=== PATIENT | male | born 1945 | race Caucasian/White ===

== ENCOUNTER → 2016-09-09 | Outpatient (REF) | payer MEDICARE ==
[~2016-09-09] MED LIST: /AMLO25TA PO; /ATOR40TA OR; /MOM400 OR; /PANT40TA PO; /WARF4TA PO; ASCO25TA PO; ASPI81CH PO; BACITAB PO; BACL10TA PO; BISAC5TA PR; COLA100C PO; COLA50CA3 PO; COUM1TAB14 PO; DRIS50002 PO; FLOM5CAP PO; GLUC500T PO; HUMA100I SC; INSULANT SC; INVA1INJ IV; KEPP500T4 PO; LOPR50TA PO; MAG400TA PO; MYCOSTATIN TOP; PRIL40CA PO; PROSCAR PO; PROZ20CA11 PO; SANT250O8 TOP; SENO8.6T9 PO; THERTAB30 PO; TYLE325T5 PO; VITA400T2 PO; VITABCTA PO; ZEST20TA8 PO; ZINC220T PO; ZYVO100T PO
[2016-09-09 15:55] LABS: MEAN CORPUSCULAR HEMOGLOBIN 29.5 pg (27.0-33.0); MEAN CORPUSCULAR HGB CONC 32.3 g/dl (32.0-36.5); MEAN CORPUSCULAR VOLUME 91.1 fl (80.0-96.0); RED CELL DISTRIBUTION WIDTH 14.1 % (11.5-14.5); WHITE BLOOD COUNT 8.2 K/mm3 (4.0-10.0)
[2016-09-09 17:26] LABS: ALBUMIN 3.6 GM/DL (3.2-5.2); ALBUMIN/GLOBULIN RATIO 0.97 (1.00-1.93); ALKALINE PHOSPHATASE 58 U/L (45-117); ALT/SGPT 33 U/L (12-78); ANION GAP 6 MEQ/L (8-16); AST/SGOT 22 U/L (15-37); BILIRUBIN,TOTAL 0.5 MG/DL (0.2-1.0); BLOOD UREA NITROGEN 22 MG/DL (7-18); CALCIUM LEVEL 8.6 MG/DL (8.8-10.2); CARBON DIOXIDE LEVEL 31 MEQ/L (21-32); CHLORIDE LEVEL 103 MEQ/L (98-107); CHOLESTEROL LEVEL 129 MG/DL (<200); CREATININE FOR GFR 1.19 MG/DL (0.70-1.30); GLOMERULAR FILTRATION RATE > 60.0 (>42); GLUCOSE, FASTING 125 MG/DL (83-110); MAGNESIUM LEVEL 1.8 MG/DL (1.8-2.4); SODIUM LEVEL 140 MEQ/L (136-145); TOTAL PROTEIN 7.3 GM/DL (6.4-8.2); TRIGLYCERIDES LEVEL 248 MG/DL (<150)
== END ==
LOC: M SFHCSACK 11:00
PROVIDERS: ATTEND Physician Assistant
DX: D64.9 Anemia, unspecified (principal); I10 Essential (primary) hypertension; E78.5 Hyperlipidemia, unspecified; E11.9 Type 2 diabetes mellitus without complications; E55.9 Vitamin D deficiency, unspecified; R80.9 Proteinuria, unspecified; Z51.81 Encounter for therapeutic drug level monitoring; Z79.891 Long term (current) use of opiate analgesic

== ENCOUNTER → 2017-03-03 | Outpatient (REF) | payer MEDICARE ==
[~2017-03-03] MED LIST changes: -COLA100C PO; +COLA100C5 PO
[2017-03-03 15:43] LABS: ALBUMIN 3.5 GM/DL (3.2-5.2); ALKALINE PHOSPHATASE 61 U/L (45-117); ALT/SGPT 24 U/L (12-78); ANION GAP 9 MEQ/L (8-16); AST/SGOT 20 U/L (15-37); BILIRUBIN,TOTAL 0.3 MG/DL (0.2-1.0); BLOOD UREA NITROGEN 26 MG/DL (7-18); CALCIUM LEVEL 8.8 MG/DL (8.8-10.2); CARBON DIOXIDE LEVEL 26 MEQ/L (21-32); CHLORIDE LEVEL 107 MEQ/L (98-107); CHOLESTEROL LEVEL 117 MG/DL (<200); CREATININE FOR GFR 1.24 MG/DL (0.70-1.30); GLOMERULAR FILTRATION RATE > 60.0 (>42); GLUCOSE, FASTING 98 MG/DL (83-110); POTASSIUM SERUM 4.9 MEQ/L (3.5-5.1); SODIUM LEVEL 142 MEQ/L (136-145); TRIGLYCERIDES LEVEL 205 MG/DL (<150)
[2017-03-03 15:58] LABS: MEAN CORPUSCULAR HEMOGLOBIN 30.4 pg (27.0-33.0); MEAN CORPUSCULAR HGB CONC 32.4 g/dl (32.0-36.5); RED CELL DISTRIBUTION WIDTH 13.4 % (11.5-14.5); WHITE BLOOD COUNT 6.6 K/mm3 (4.0-10.0)
== END ==
LOC: M SFHCSACK 08:51
PROVIDERS: ATTEND Physician Assistant
DX: D64.9 Anemia, unspecified (principal); I10 Essential (primary) hypertension; E78.5 Hyperlipidemia, unspecified; E11.9 Type 2 diabetes mellitus without complications; E55.9 Vitamin D deficiency, unspecified

== ENCOUNTER → 2017-06-04 | Outpatient (REF) | payer MEDICARE ==
[2017-06-04 15:43] LABS: BASO # 0.1 10^3/uL (0.0-0.2); EOS # 0.3 10^3/uL (0.0-0.50); EOS % 3.5 % (0.0-3.0); IMMATURE GRANULOCYTE % 0.5 % (0-0); LYMPH # 2.3 10^3/uL (1.5-4.5); LYMPH % 28.9 % (24.0-44.0); MEAN CORPUSCULAR HEMOGLOBIN 29.4 pg (27.0-33.0); MEAN CORPUSCULAR HGB CONC 31.2 g/dl (32.0-36.5); MEAN CORPUSCULAR VOLUME 94.3 fl (80.0-96.0); MONO # 0.6 10^3/uL (0.0-0.8); MONO % 8.2 % (0.0-5.0); NEUTROPHILS # 4.5 10^3/uL (1.8-7.7); NEUTROPHILS % 57.9 % (36.0-66.0); PLATELET COUNT, AUTOMATED 262 10^3/uL (150-450); RED CELL DISTRIBUTION WIDTH 13.1 % (11.5-14.5); WHITE BLOOD COUNT 7.8 10^3/uL (4.0-10.0)
[2017-06-04 15:50] LABS: ALBUMIN 3.3 GM/DL (3.2-5.2); ALBUMIN/GLOBULIN RATIO 0.92 (1.00-1.93); ALKALINE PHOSPHATASE 51 U/L (45-117); ALT/SGPT 29 U/L (12-78); ANION GAP 7 MEQ/L (8-16); AST/SGOT 17 U/L (15-37); BILIRUBIN,TOTAL 0.3 MG/DL (0.2-1.0); BLOOD UREA NITROGEN 19 MG/DL (7-18); CALCIUM LEVEL 8.7 MG/DL (8.8-10.2); CARBON DIOXIDE LEVEL 30 MEQ/L (21-32); CHLORIDE LEVEL 103 MEQ/L (98-107); CHOLESTEROL LEVEL 99 MG/DL (<200); GLOMERULAR FILTRATION RATE > 60.0 (>42); GLUCOSE, FASTING 111 MG/DL (83-110); POTASSIUM SERUM 4.6 MEQ/L (3.5-5.1); SODIUM LEVEL 140 MEQ/L (136-145); TOTAL PROTEIN 6.9 GM/DL (6.4-8.2); TRIGLYCERIDES LEVEL 185 MG/DL (<150)
== END ==
LOC: M SFHCSACK 08:07
PROVIDERS: ATTEND Physician Assistant
DX: I10 Essential (primary) hypertension (principal); E78.5 Hyperlipidemia, unspecified; E55.9 Vitamin D deficiency, unspecified

== ENCOUNTER → 2017-09-15 | Outpatient (REF) | payer MEDICARE ==
[2017-09-15 16:40] LABS: ALBUMIN 3.5 GM/DL (3.2-5.2); ALBUMIN/GLOBULIN RATIO 0.92 (1.00-1.93); ALKALINE PHOSPHATASE 59 U/L (45-117); ALT/SGPT 21 U/L (12-78); ANION GAP 3 MEQ/L (8-16); AST/SGOT 17 U/L (7-37); BILIRUBIN,TOTAL 0.3 MG/DL (0.2-1.0); BLOOD UREA NITROGEN 38 MG/DL (7-18); CALCIUM LEVEL 8.9 MG/DL (8.8-10.2); CARBON DIOXIDE LEVEL 30 MEQ/L (21-32); CHLORIDE LEVEL 110 MEQ/L (98-107); CREATININE FOR GFR 1.56 MG/DL (0.70-1.30); GLOMERULAR FILTRATION RATE 46.9 (>42); GLUCOSE, FASTING 94 MG/DL (83-110); MAGNESIUM LEVEL 2.5 MG/DL (1.8-2.4); SODIUM LEVEL 143 MEQ/L (136-145); TOTAL PROTEIN 7.3 GM/DL (6.4-8.2)
[2017-09-15 16:43] LABS: POTASSIUM SERUM 5.5 MEQ/L (3.5-5.1)
[2017-09-15 16:46] LABS: TOTAL 25(OH) VITAMIN D 39.4 NG/ML (30.0-100.0)
[2017-09-15 17:28] LABS: ESTIMATED AVERAGE GLUCOSE 134 MG/DL (60-110); HEMOGLOBIN A1c 6.3 %
== END ==
LOC: M SFHCSACK 09:00
DX: I10 Essential (primary) hypertension (principal); E11.9 Type 2 diabetes mellitus without complications; E55.9 Vitamin D deficiency, unspecified
CPT/HCPCS: 83735

== ENCOUNTER → 2017-09-17 | Outpatient (REF) | payer MEDICARE ==
[2017-09-17 21:17] LABS: MAU/CREAT RATIO 126.7 MCG/MG (0.0-30.0)
== END ==
LOC: M SFHCSACK 15:07
DX: E11.9 Type 2 diabetes mellitus without complications (principal)
CPT/HCPCS: 82043

== ENCOUNTER → 2017-10-22 | Outpatient (REF) | payer MEDICARE ==
[2017-10-22 15:31] LABS: BASO # 0.1 10^3/uL (0.0-0.2); BASO % 0.9 % (0.0-1.0); EOS # 0.4 10^3/uL (0.0-0.50); EOS % 4.7 % (0.0-3.0); HEMATOCRIT 39.4 % (42.0-52.0); HEMOGLOBIN 12.3 g/dl (14.0-18.0); IMMATURE GRANULOCYTE % 0.3 % (0-3.0); LYMPH # 2.3 10^3/uL (1.5-4.5); MEAN CORPUSCULAR HEMOGLOBIN 29.3 pg (27.0-33.0); MEAN CORPUSCULAR HGB CONC 31.2 g/dl (32.0-36.5); MEAN CORPUSCULAR VOLUME 93.8 fl (80.0-96.0); MONO # 0.7 10^3/uL (0.0-0.8); MONO % 7.8 % (0.0-5.0); NEUTROPHILS # 5.1 10^3/uL (1.8-7.7); NEUTROPHILS % 59.3 % (36.0-66.0); PLATELET COUNT, AUTOMATED 350 10^3/uL (150-450); RED CELL DISTRIBUTION WIDTH 13.2 % (11.5-14.5); WHITE BLOOD COUNT 8.6 10^3/uL (4.0-10.0)
[2017-10-22 15:41] LABS: ALBUMIN 3.2 GM/DL (3.2-5.2); ALBUMIN/GLOBULIN RATIO 0.82 (1.00-1.93); ALKALINE PHOSPHATASE 61 U/L (45-117); ALT/SGPT 26 U/L (12-78); ANION GAP 4 MEQ/L (8-16); AST/SGOT 17 U/L (7-37); BILIRUBIN,TOTAL 0.3 MG/DL (0.2-1.0); BLOOD UREA NITROGEN 28 MG/DL (7-18); CALCIUM LEVEL 9.1 MG/DL (8.8-10.2); CARBON DIOXIDE LEVEL 30 MEQ/L (21-32); CHLORIDE LEVEL 105 MEQ/L (98-107); CREATININE FOR GFR 1.29 MG/DL (0.70-1.30); GLOMERULAR FILTRATION RATE 58.5 (>42); GLUCOSE, FASTING 94 MG/DL (70-100); MAGNESIUM LEVEL 2.1 MG/DL (1.8-2.4); SODIUM LEVEL 139 MEQ/L (136-145); TOTAL PROTEIN 7.1 GM/DL (6.4-8.2)
[2017-10-22 15:42] LABS: POTASSIUM SERUM 5.3 MEQ/L (3.5-5.1)
== END ==
LOC: M SFHCSACK 09:00
DX: D64.9 Anemia, unspecified (principal); E83.42 Hypomagnesemia
CPT/HCPCS: 83735

== ENCOUNTER → 2018-10-05 | Outpatient (REF) | payer MEDICARE ==
[~2018-10-05] MED LIST changes: -DRIS50002 PO; +DRIS50003 PO; +FLOM0.4C39 PO; -FLOM5CAP PO; -ZYVO100T PO; +ZYVO1TAB PO
[2018-10-05 12:38] LABS: INR 1.83; PROTHROMBIN TIME 21.5 SECONDS (12.1-14.4)
== END ==
LOC: M SFHCPLAZ 10:03
PROVIDERS: ATTEND Physician Assistant Medical
DX: Z51.81 Encounter for therapeutic drug level monitoring (principal); Z79.01 Long term (current) use of anticoagulants
CPT/HCPCS: 36415; 85610; G0463

== ENCOUNTER → 2018-10-12 | Outpatient (REF) | payer MEDICARE ==
[2018-10-12 12:00] LABS: INR 1.93; PROTHROMBIN TIME 22.4 SECONDS (12.1-14.4)
== END ==
LOC: M SFHCPLAZ 09:10
PROVIDERS: ATTEND Physician Assistant Medical
DX: Z51.81 Encounter for therapeutic drug level monitoring (principal); Z79.01 Long term (current) use of anticoagulants

== ENCOUNTER → 2018-11-16 | Outpatient (REF) | payer MEDICARE ==
[~2018-11-16] MED LIST changes: -/AMLO25TA PO; -/ATOR40TA OR; -/MOM400 OR; -/PANT40TA PO; -/WARF4TA PO; -ASCO25TA PO; +LIPI1TAB2 OR; +MILK10SU OR; +NORV2TAB PO; +PROT1TAB2 PO; +VITA1TAB23 PO
[2018-11-16 14:22] LABS: BASO % 0.6 % (0.0-1.0); EOS # 0.2 10^3/uL (0.0-0.50); EOS % 3.6 % (0.0-3.0); HEMATOCRIT 38.9 % (42.0-52.0); HEMOGLOBIN 12.1 g/dl (13.5-17.5); LYMPH # 1.8 10^3/uL (1.5-4.5); LYMPH % 27.6 % (24.0-44.0); MEAN CORPUSCULAR HGB CONC 31.1 g/dl (32.0-36.5); MEAN CORPUSCULAR VOLUME 93.3 fl (80.0-96.0); MONO # 0.5 10^3/uL (0.0-0.8); MONO % 7.7 % (0.0-5.0); NEUTROPHILS # 3.9 10^3/uL (1.8-7.7); PLATELET COUNT, AUTOMATED 259 10^3/uL (150-450); RED BLOOD COUNT 4.17 10^6/uL (4.30-6.10); WHITE BLOOD COUNT 6.5 10^3/uL (4.0-10.0)
[2018-11-16 14:39] LABS: HEMOGLOBIN A1c 6.8 %
[2018-11-16 14:53] LABS: ALBUMIN 3.3 GM/DL (3.2-5.2); ALT/SGPT 29 U/L (12-78); BILIRUBIN,TOTAL 0.3 MG/DL (0.2-1.0); BLOOD UREA NITROGEN 23 MG/DL (7-18); CALCIUM LEVEL 8.4 MG/DL (8.8-10.2); CARBON DIOXIDE LEVEL 27 MEQ/L (21-32); CHLORIDE LEVEL 111 MEQ/L (98-107); CHOLESTEROL LEVEL 97 MG/DL (<200); CHOLESTEROL RISK RATIO 3.233 (<5); CREATININE FOR GFR 1.23 MG/DL (0.70-1.30); GLOMERULAR FILTRATION RATE > 60.0 (>42); GLUCOSE, FASTING 127 MG/DL (70-100); HDL CHOLESTEROL 30 MG/DL (>40); LDL CHOLESTEROL 34 MG/DL (<100); MAGNESIUM LEVEL 1.7 MG/DL (1.8-2.4); NON-HDL-C 67 MG/DL; POTASSIUM SERUM 4.8 MEQ/L (3.5-5.1); SODIUM LEVEL 145 MEQ/L (136-145); TOTAL PROTEIN 6.7 GM/DL (6.4-8.2); TRIGLYCERIDES LEVEL 164 MG/DL (<150)
[2018-11-16 16:22] LABS: TOTAL 25(OH) VITAMIN D 47.2 NG/ML (30.0-100.0)
== END ==
LOC: M SFHCSACK 08:50
PROVIDERS: ATTEND Physician Assistant
DX: D64.9 Anemia, unspecified (principal); E11.9 Type 2 diabetes mellitus without complications; E78.5 Hyperlipidemia, unspecified; E55.9 Vitamin D deficiency, unspecified

== ENCOUNTER → 2018-11-18 | Outpatient (REF) | payer MEDICARE ==
[~2018-11-18] MED LIST changes: +/AMLO25TA PO; +/ATOR40TA OR; +/MOM400 OR; +/PANT40TA PO; +/WARF4TA PO; +ASCO25TA PO; -LIPI1TAB2 OR; -MILK10SU OR; -NORV2TAB PO; -PROT1TAB2 PO; -VITA1TAB23 PO
[2018-11-18 16:32] LABS: CREATININE, URINE 95.1 MG/DL
== END ==
LOC: M SFHCSACK 15:25
PROVIDERS: ATTEND Physician Assistant
DX: E83.42 Hypomagnesemia (principal); R80.9 Proteinuria, unspecified; E55.9 Vitamin D deficiency, unspecified

== ENCOUNTER → 2019-05-10 | Outpatient (REF) | payer MEDICARE ==
[~2019-05-10] MED LIST changes: -/AMLO25TA PO; -/ATOR40TA OR; -/MOM400 OR; -/PANT40TA PO; -/WARF4TA PO; -ASCO25TA PO; +LIPI1TAB2 OR; +MILK10SU OR; +NORV2TAB PO; +PROT1TAB2 PO; +VITA1TAB23 PO; -ZINC220T PO; +ZINC220T6 PO
[2019-05-10 15:12] LABS: ALBUMIN 3.3 GM/DL (3.2-5.2); BILIRUBIN,TOTAL 0.4 MG/DL (0.2-1.0); CALCIUM LEVEL 9.2 MG/DL (8.8-10.2); CHOLESTEROL RISK RATIO 3.266 (<5); CREATININE FOR GFR 1.51 MG/DL (0.70-1.30); GLOMERULAR FILTRATION RATE 48.5 (>42); MAGNESIUM LEVEL 2.1 MG/DL (1.8-2.4); POTASSIUM SERUM 3.1 MEQ/L (3.5-5.1)
[2019-05-10 15:13] LABS: BASO # 0.1 10^3/uL (0.0-0.2); BASO % 0.8 % (0.0-1.0); EOS # 0.3 10^3/uL (0.0-0.5); EOS % 3.6 % (0.0-3.0); HEMOGLOBIN 12.6 g/dl (13.5-17.5); LYMPH # 1.9 10^3/uL (1.5-5.0); LYMPH % 24.7 % (24.0-44.0); MEAN CORPUSCULAR HEMOGLOBIN 28.4 pg (27.0-33.0); MEAN CORPUSCULAR HGB CONC 30.7 g/dl (32.0-36.5); MEAN CORPUSCULAR VOLUME 92.6 fl (80.0-96.0); MONO # 0.6 10^3/uL (0.0-0.8); MONO % 7.7 % (0.0-5.0); NEUTROPHILS # 4.8 10^3/uL (1.5-8.5); NEUTROPHILS % 62.8 % (36.0-66.0); PLATELET COUNT, AUTOMATED 285 10^3/uL (150-450); RED BLOOD COUNT 4.43 10^6/uL (4.30-6.10); WHITE BLOOD COUNT 7.7 10^3/uL (4.0-10.0)
[2019-05-10 15:40] LABS: HEMOGLOBIN A1c 6.6 %
== END ==
LOC: M SFHCSACK 09:28
PROVIDERS: ATTEND Physician Assistant
DX: D64.9 Anemia, unspecified (principal); E55.9 Vitamin D deficiency, unspecified; E78.5 Hyperlipidemia, unspecified; E11.9 Type 2 diabetes mellitus without complications

== ENCOUNTER → 2019-12-04 | Outpatient (CLI) | payer MEDICARE ==
[2019-12-04 11:59] LABS: BASO # 0.1 10^3/uL (0.0-0.2); BASO % 0.8 % (0.0-1.0); EOS # 0.3 10^3/uL (0.0-0.5); EOS % 2.6 % (0.0-3.0); HEMATOCRIT 42.2 % (42.0-52.0); HEMOGLOBIN 12.8 g/dl (13.5-17.5); LYMPH # 2.8 10^3/uL (1.5-5.0); LYMPH % 28.7 % (24.0-44.0); MEAN CORPUSCULAR HEMOGLOBIN 27.6 pg (27.0-33.0); MEAN CORPUSCULAR HGB CONC 30.3 g/dl (32.0-36.5); MEAN CORPUSCULAR VOLUME 91.1 fl (80.0-96.0); MONO # 0.7 10^3/uL (0.0-0.8); MONO % 7.3 % (0.0-5.0); NEUTROPHILS # 5.8 10^3/uL (1.5-8.5); NEUTROPHILS % 60.2 % (36.0-66.0); PLATELET COUNT, AUTOMATED 267 10^3/uL (150-450); RED BLOOD COUNT 4.63 10^6/uL (4.30-6.10); WHITE BLOOD COUNT 9.6 10^3/uL (4.0-10.0)
[2019-12-04 12:10] LABS: INR 2.29
[2019-12-04 12:19] LABS: ALBUMIN 3.4 GM/DL (3.2-5.2); BILIRUBIN,TOTAL 0.4 MG/DL (0.2-1.0); CALCIUM LEVEL 8.9 MG/DL (8.8-10.2); CHOLESTEROL RISK RATIO 3.166 (<5); CREATININE FOR GFR 1.53 MG/DL (0.70-1.30); GLOMERULAR FILTRATION RATE 47.7 (>42); POTASSIUM SERUM 2.6 MEQ/L (3.5-5.1); TOTAL 25(OH) VITAMIN D 72.8 NG/ML (30.0-100.0); TOTAL PROTEIN 7.2 GM/DL (6.4-8.2)
[2019-12-04 12:22] LABS: HEMOGLOBIN A1c 6.9 %
== END ==
LOC: M WUC 09:23
PROVIDERS: ATTEND Physician Assistant
DX: E78.5 Hyperlipidemia, unspecified (principal); E11.9 Type 2 diabetes mellitus without complications; E55.9 Vitamin D deficiency, unspecified; D64.9 Anemia, unspecified; Z79.01 Long term (current) use of anticoagulants

== ENCOUNTER → 2019-12-11 | Outpatient (CLI) | payer MEDICARE ==
[2019-12-11 13:13] LABS: BASO # 0.1 10^3/uL (0.0-0.2); BASO % 0.7 % (0.0-1.0); EOS # 0.2 10^3/uL (0.0-0.5); HEMATOCRIT 42.1 % (42.0-52.0); HEMOGLOBIN 12.7 g/dl (13.5-17.5); LYMPH # 2.5 10^3/uL (1.5-5.0); LYMPH % 26.9 % (24.0-44.0); MEAN CORPUSCULAR HEMOGLOBIN 27.7 pg (27.0-33.0); MEAN CORPUSCULAR HGB CONC 30.2 g/dl (32.0-36.5); MEAN CORPUSCULAR VOLUME 91.7 fl (80.0-96.0); MONO # 0.7 10^3/uL (0.0-0.8); MONO % 7.9 % (0.0-5.0); NEUTROPHILS # 5.7 10^3/uL (1.5-8.5); NEUTROPHILS % 62.1 % (36.0-66.0); PLATELET COUNT, AUTOMATED 275 10^3/uL (150-450); RED BLOOD COUNT 4.59 10^6/uL (4.30-6.10); WHITE BLOOD COUNT 9.2 10^3/uL (4.0-10.0)
[2019-12-11 13:17] LABS: ALBUMIN 3.4 GM/DL (3.2-5.2); BILIRUBIN,TOTAL 0.4 MG/DL (0.2-1.0); CALCIUM LEVEL 9.2 MG/DL (8.8-10.2); CREATININE FOR GFR 1.81 MG/DL (0.70-1.30); GLOMERULAR FILTRATION RATE 39.3 (>42); POTASSIUM SERUM 2.8 MEQ/L (3.5-5.1); TOTAL PROTEIN 7.1 GM/DL (6.4-8.2)
== END ==
LOC: M WUC 09:12
DX: E87.6 Hypokalemia (principal); D64.9 Anemia, unspecified

== ENCOUNTER → 2019-12-25 | Outpatient (CLI) | payer MEDICARE ==
[2019-12-25 12:21] LABS: BASO # 0.1 10^3/uL (0.0-0.2); BASO % 0.7 % (0.0-1.0); EOS # 0.2 10^3/uL (0.0-0.5); HEMATOCRIT 41.1 % (42.0-52.0); HEMOGLOBIN 12.5 g/dl (13.5-17.5); LYMPH # 2.2 10^3/uL (1.5-5.0); LYMPH % 28.6 % (24.0-44.0); MEAN CORPUSCULAR HEMOGLOBIN 27.8 pg (27.0-33.0); MEAN CORPUSCULAR HGB CONC 30.4 g/dl (32.0-36.5); MEAN CORPUSCULAR VOLUME 91.5 fl (80.0-96.0); MONO # 0.6 10^3/uL (0.0-0.8); MONO % 8.4 % (0.0-5.0); NEUTROPHILS # 4.5 10^3/uL (1.5-8.5); PLATELET COUNT, AUTOMATED 243 10^3/uL (150-450); RED BLOOD COUNT 4.49 10^6/uL (4.30-6.10); WHITE BLOOD COUNT 7.7 10^3/uL (4.0-10.0)
[2019-12-25 12:32] LABS: ALBUMIN 3.2 GM/DL (3.2-5.2); BILIRUBIN,TOTAL 0.2 MG/DL (0.2-1.0); CALCIUM LEVEL 8.9 MG/DL (8.8-10.2); CHOLESTEROL RISK RATIO 3.142 (<5); CREATININE FOR GFR 1.76 MG/DL (0.70-1.30); GLOMERULAR FILTRATION RATE 40.6 (>42); POTASSIUM SERUM 3.1 MEQ/L (3.5-5.1)
[2019-12-25 12:36] LABS: TOTAL 25(OH) VITAMIN D 52.7 NG/ML (30.0-100.0)
[2019-12-25 12:42] LABS: HEMOGLOBIN A1c 6.6 %
== END ==
LOC: M WUC 09:28
PROVIDERS: ATTEND Physician Assistant
DX: E78.5 Hyperlipidemia, unspecified (principal); E11.9 Type 2 diabetes mellitus without complications; E55.9 Vitamin D deficiency, unspecified; E64.9 Sequelae of unspecified nutritional deficiency

== ENCOUNTER → 2020-01-02 | Outpatient (CLI) | payer MEDICARE ==
[2020-01-02 12:31] LABS: INR 3.12
[2020-01-02 12:38] LABS: CALCIUM LEVEL 8.7 MG/DL (8.8-10.2); CREATININE FOR GFR 1.66 MG/DL (0.70-1.30); GLOMERULAR FILTRATION RATE 43.4 (>42); POTASSIUM SERUM 3.4 MEQ/L (3.5-5.1)
== END ==
LOC: M WUC 10:42
PROVIDERS: ATTEND Physician Assistant
DX: Z51.81 Encounter for therapeutic drug level monitoring (principal)

== ENCOUNTER → 2020-01-12 | Outpatient (CLI) | payer MEDICARE ==
[2020-01-12 10:28] LABS: INR 2.9; PROTHROMBIN TIME 30.2 SECONDS (11.8-14.0)
[2020-01-12 10:33] LABS: ALBUMIN 3.2 GM/DL (3.2-5.2); BILIRUBIN,TOTAL 0.3 MG/DL (0.2-1.0); CALCIUM LEVEL 8.1 MG/DL (8.8-10.2); CREATININE FOR GFR 1.51 MG/DL (0.70-1.30); GLOMERULAR FILTRATION RATE 48.5 (>42); POTASSIUM SERUM 3.9 MEQ/L (3.5-5.1); TOTAL PROTEIN 6.9 GM/DL (6.4-8.2)
== END ==
LOC: M WUC 09:01
PROVIDERS: ATTEND Physician Assistant Medical
DX: E87.6 Hypokalemia (principal); Z51.81 Encounter for therapeutic drug level monitoring

== ENCOUNTER → 2020-02-12 | Outpatient (CLI) | payer MEDICARE ==
[~2020-02-12] MED LIST changes: +COUM4TAB8 PO
[2020-02-12 10:14] LABS: INR 2.29
== END ==
LOC: M WUC 08:52
PROVIDERS: ATTEND Physician Assistant Medical
DX: Z51.81 Encounter for therapeutic drug level monitoring (principal)

== ENCOUNTER → 2020-03-11 | Outpatient (CLI) | payer MEDICARE ==
[2020-03-11 12:52] LABS: INR 2.18; PROTHROMBIN TIME 24.1 SECONDS (11.8-14.0)
== END ==
LOC: M WUC 08:53
PROVIDERS: ATTEND Physician Assistant Medical
DX: Z51.81 Encounter for therapeutic drug level monitoring (principal)

== ENCOUNTER → 2020-04-08 | Outpatient (REF) | payer MEDICARE ==
[~2020-04-08] MED LIST changes: +ASCO250T20 PO; -VITA1TAB23 PO
[2020-05-08 13:25] LABS: INR 2.76; PROTHROMBIN TIME 29.8 SECONDS (11.8-14.0)
== END ==
LOC: M LABWUC 06:12
PROVIDERS: ATTEND Physician Assistant Medical
DX: Z79.01 Long term (current) use of anticoagulants (principal)

== ENCOUNTER → 2020-05-09 | Outpatient (CLI) | payer MEDICARE ==
[2020-05-09 12:39] LABS: INR 2.61; PROTHROMBIN TIME 28.5 SECONDS (11.8-14.0)
== END ==
LOC: M WUC 08:24
PROVIDERS: ATTEND Physician Assistant Medical
DX: I48.91 Unspecified atrial fibrillation (principal)

== ENCOUNTER → 2020-06-06 | Outpatient (CLI) | payer MEDICARE ==
[2020-06-06 11:39] LABS: INR 2.16; PROTHROMBIN TIME 24.6 SECONDS (12.5-14.3)
== END ==
LOC: M WUC 09:26
PROVIDERS: ATTEND Physician Assistant Medical
DX: Z79.01 Long term (current) use of anticoagulants (principal); Z86.73 Personal history of transient ischemic attack (TIA), and cerebral infarction without residual deficits

== ENCOUNTER → 2020-06-25 | Outpatient (CLI) | payer MEDICARE ==
[2020-06-25 10:51] LABS: BASO # 0.1 10^3/uL (0.0-0.2); BASO % 0.7 % (0.0-1.0); EOS # 0.2 10^3/uL (0.0-0.5); EOS % 2.3 % (0.0-3.0); HEMATOCRIT 42.5 % (42.0-52.0); HEMOGLOBIN 12.9 g/dl (13.5-17.5); LYMPH # 2.2 10^3/uL (1.5-5.0); LYMPH % 26.6 % (24.0-44.0); MEAN CORPUSCULAR HEMOGLOBIN 27.7 pg (27.0-33.0); MEAN CORPUSCULAR HGB CONC 30.4 g/dl (32.0-36.5); MEAN CORPUSCULAR VOLUME 91.2 fl (80.0-96.0); MONO # 0.6 10^3/uL (0.0-0.8); MONO % 7.7 % (0.0-5.0); NEUTROPHILS # 5.1 10^3/uL (1.5-8.5); NEUTROPHILS % 61.5 % (36.0-66.0); PLATELET COUNT, AUTOMATED 252 10^3/uL (150-450); RED BLOOD COUNT 4.66 10^6/uL (4.30-6.10); WHITE BLOOD COUNT 8.3 10^3/uL (4.0-10.0)
[2020-06-25 11:07] LABS: HEMOGLOBIN A1c 6.4 %
[2020-06-25 11:33] LABS: ALBUMIN 3.5 GM/DL (3.2-5.2); BILIRUBIN,TOTAL 0.4 MG/DL (0.2-1.0); CALCIUM LEVEL 9.5 MG/DL (8.8-10.2); CHOLESTEROL RISK RATIO 3.033 (<5); CREATININE FOR GFR 1.76 MG/DL (0.70-1.30); FREE T4 1.06 NG/DL (0.76-1.46); GLOMERULAR FILTRATION RATE 40.5 (>42); POTASSIUM SERUM 2.7 MEQ/L (3.5-5.1); THYROID STIMULATING HORMONE 2.15 uIU/ML (0.358-3.740); TOTAL PROTEIN 7.2 GM/DL (6.4-8.2)
== END ==
LOC: M WUC 08:14
PROVIDERS: ATTEND Physician Assistant Medical
DX: E11.9 Type 2 diabetes mellitus without complications (principal); F32.9 Major depressive disorder, single episode, unspecified; I10 Essential (primary) hypertension; E83.42 Hypomagnesemia; E78.5 Hyperlipidemia, unspecified

== ENCOUNTER → 2020-07-02 | Outpatient (CLI) | payer MEDICARE ==
[2020-07-02 11:13] LABS: CALCIUM LEVEL 9.1 MG/DL (8.8-10.2); CREATININE FOR GFR 1.47 MG/DL (0.70-1.30); GLOMERULAR FILTRATION RATE 49.9 (>42); POTASSIUM SERUM 3.2 MEQ/L (3.5-5.1)
== END ==
LOC: M WUC 08:39
PROVIDERS: ATTEND Physician Assistant Medical
DX: E87.6 Hypokalemia (principal)

== ENCOUNTER → 2020-07-22 | Outpatient (CLI) | payer MEDICARE ==
[2020-07-22 10:26] LABS: INR 2.41; PROTHROMBIN TIME 26.8 SECONDS (12.5-14.3)
[2020-07-22 10:58] LABS: CALCIUM LEVEL 9.1 MG/DL (8.8-10.2); CREATININE FOR GFR 1.63 MG/DL (0.70-1.30); GLOMERULAR FILTRATION RATE 44.2 (>42); POTASSIUM SERUM 3.8 MEQ/L (3.5-5.1)
== END ==
LOC: M WUC 08:24
PROVIDERS: ATTEND Physician Assistant Medical
DX: E78.5 Hyperlipidemia, unspecified (principal); E11.9 Type 2 diabetes mellitus without complications; F32.9 Major depressive disorder, single episode, unspecified; I10 Essential (primary) hypertension; E83.42 Hypomagnesemia; D64.9 Anemia, unspecified; E87.6 Hypokalemia; Z79.01 Long term (current) use of anticoagulants

== ENCOUNTER → 2020-08-26 | Outpatient (CLI) | payer MEDICARE ==
[2020-08-26 10:46] LABS: INR 2.54; PROTHROMBIN TIME 27.9 SECONDS (12.5-14.3)
== END ==
LOC: M WUC 08:24
PROVIDERS: ATTEND Physician Assistant Medical
DX: Z51.81 Encounter for therapeutic drug level monitoring (principal); Z79.899 Other long term (current) drug therapy

== ENCOUNTER → 2020-09-23 | Outpatient (CLI) | payer MEDICARE ==
[2020-09-23 10:12] LABS: INR 2.9
[2020-09-23 10:49] LABS: ALBUMIN 3.4 GM/DL (3.2-5.2); BILIRUBIN,TOTAL 0.3 MG/DL (0.2-1.0); CREATININE FOR GFR 1.91 MG/DL (0.70-1.30); GLOMERULAR FILTRATION RATE 36.9 (>42); MAGNESIUM LEVEL 1.9 MG/DL (1.8-2.4); POTASSIUM SERUM 3.2 MEQ/L (3.5-5.1); TOTAL PROTEIN 6.7 GM/DL (6.4-8.2)
== END ==
LOC: M WUC 08:30
PROVIDERS: ATTEND Physician Assistant Medical
DX: E87.6 Hypokalemia (principal); E83.42 Hypomagnesemia; Z51.81 Encounter for therapeutic drug level monitoring

== ENCOUNTER → 2020-10-21 | Outpatient (CLI) | payer MEDICARE ==
[2020-10-21 10:51] LABS: BASO # 0.1 10^3/uL (0.0-0.2); BASO % 0.8 % (0.0-1.0); EOS # 0.2 10^3/uL (0.0-0.5); EOS % 2.6 % (0.0-3.0); HEMATOCRIT 45.1 % (42.0-52.0); HEMOGLOBIN 13.6 g/dl (13.5-17.5); LYMPH # 2.1 10^3/uL (1.5-5.0); LYMPH % 24.6 % (24.0-44.0); MEAN CORPUSCULAR HEMOGLOBIN 28.5 pg (27.0-33.0); MEAN CORPUSCULAR HGB CONC 30.2 g/dl (32.0-36.5); MEAN CORPUSCULAR VOLUME 94.5 fl (80.0-96.0); MONO # 0.5 10^3/uL (0.0-0.8); MONO % 6.4 % (2.0-8.0); NEUTROPHILS # 5.5 10^3/uL (1.5-8.5); NEUTROPHILS % 64.9 % (36.0-66.0); PLATELET COUNT, AUTOMATED 219 10^3/uL (150-450); RED BLOOD COUNT 4.77 10^6/uL (4.30-6.10); WHITE BLOOD COUNT 8.5 10^3/uL (4.0-10.0)
[2020-10-21 10:58] LABS: INR 2.95; PROTHROMBIN TIME 31.4 SECONDS (12.5-14.3)
[2020-10-21 11:23] LABS: ALBUMIN 3.5 GM/DL (3.2-5.2); BILIRUBIN,TOTAL 0.3 MG/DL (0.2-1.0); CREATININE FOR GFR 1.82 MG/DL (0.70-1.30); MAGNESIUM LEVEL 2.2 MG/DL (1.8-2.4); POTASSIUM SERUM 3.3 MEQ/L (3.5-5.1); TOTAL PROTEIN 7.3 GM/DL (6.4-8.2)
== END ==
LOC: M WUC 08:09
PROVIDERS: ATTEND Physician Assistant Medical
DX: E87.6 Hypokalemia (principal); E83.42 Hypomagnesemia; D64.9 Anemia, unspecified; E11.9 Type 2 diabetes mellitus without complications; Z51.81 Encounter for therapeutic drug level monitoring

== ENCOUNTER → 2020-11-18 | Outpatient (CLI) | payer MEDICARE ==
[2020-11-18 13:50] LABS: INR 4.81; PROTHROMBIN TIME 46.2 SECONDS (12.5-14.3)
[2020-11-18 14:28] LABS: ALBUMIN 3.4 GM/DL (3.2-5.2); BILIRUBIN,TOTAL 0.2 MG/DL (0.2-1.0); CALCIUM LEVEL 8.8 MG/DL (8.8-10.2); CREATININE FOR GFR 1.88 MG/DL (0.70-1.30); GLOMERULAR FILTRATION RATE 37.5 (>42)
== END ==
LOC: M WUC 08:45
PROVIDERS: ATTEND Physician Assistant Medical
DX: Z51.81 Encounter for therapeutic drug level monitoring (principal)

== ENCOUNTER → 2020-11-25 | Outpatient (CLI) | payer MEDICARE ==
[2020-11-25 11:15] LABS: INR 1.9; PROTHROMBIN TIME 22.2 SECONDS (12.5-14.3)
[2020-11-25 11:25] LABS: ALBUMIN 3.6 GM/DL (3.2-5.2); CREATININE FOR GFR 1.88 MG/DL (0.70-1.30); GLOMERULAR FILTRATION RATE 37.5 (>42); PHOSPHORUS LEVEL 2.8 MG/DL (2.5-4.9); POTASSIUM SERUM 3.4 MEQ/L (3.5-5.1)
== END ==
LOC: M WUC 08:15
PROVIDERS: ATTEND Physician Assistant
DX: I63.9 Cerebral infarction, unspecified (principal)

== ENCOUNTER → 2020-12-02 | Outpatient (CLI) | payer MEDICARE ==
[2020-12-02 10:12] LABS: INR 2.11; PROTHROMBIN TIME 24.1 SECONDS (12.5-14.3)
== END ==
LOC: M WUC 08:20
PROVIDERS: ATTEND Physician Assistant Medical
DX: I63.9 Cerebral infarction, unspecified (principal)

== ENCOUNTER 2020-12-17 20:13 | Inpatient (IN) | payer MEDICARE ==
[~2020-12-17] VITALS: Ht 175.3 cm; Wt 71.2 kg
[2020-12-17] MEDS ORDERED: GLUC500T PO (20:37)
[2020-12-17] MEDS ORDERED: POTA1TAB23 PO (20:37)
[2020-12-17] MEDS ORDERED: THERTAB68 PO (20:37)
[2020-12-17] MEDS ORDERED: IRON65TA2 PO (20:37)
[2020-12-17 23:23] LABS: HEMATOCRIT 43.5 % (42.0-52.0); HEMOGLOBIN 13.2 g/dl (13.5-17.5); MEAN CORPUSCULAR HEMOGLOBIN 29.3 pg (27.0-33.0); MEAN CORPUSCULAR HGB CONC 30.3 g/dl (32.0-36.5); MEAN CORPUSCULAR VOLUME 96.7 fl (80.0-96.0); PLATELET COUNT, AUTOMATED 141 10^3/uL (150-450); WHITE BLOOD COUNT 5.1 10^3/uL (4.0-10.0)
[2020-12-17 23:42] LABS: INR 1.5; PROTHROMBIN TIME 18.4 SECONDS (12.5-14.3)
[2020-12-17 23:52] LABS: CALCIUM LEVEL 9.1 MG/DL (8.8-10.2); CREATININE FOR GFR 2.59 MG/DL (0.70-1.30); GLOMERULAR FILTRATION RATE 25.9 (>42); POTASSIUM SERUM 3.6 MEQ/L (3.5-5.1)
[2020-12-18 00:21] LABS: RSV AMPLIFICATION NEGATIVE (NEGATIVE)
--- NOTE | 2020-12-18 00:55 | REPVR ---
PROCEDURE INFORMATION: Exam: CT Abdomen And Pelvis Without Contrast Exam date and time: 12/18/2020 12:00 AM Age: 75 years old Clinical indication: Not eating well; Additional info: Anorexia TECHNIQUE: Imaging protocol: Computed tomography of the abdomen and pelvis without contrast. Radiation optimization: All CT scans at this facility use at least one of these dose optimization techniques: automated exposure control; mA and/or kV adjustment per patient size (includes targeted exams where dose is matched to clinical indication); or iterative reconstruction. COMPARISON: No relevant prior studies available. FINDINGS: Lungs: There is mild dependent atelectasis in both lower lobes. The lungs were not fully imaged. Heart: No cardiomegaly or pericardial effusion is noted. There are aortic valve and mitral annular calcifications. Diaphragm: The left hemidiaphragm is mildly elevated. Liver: Unremarkable. No liver lesion is identified. The contour of the liver is smooth. No hepatomegaly is noted. Gallbladder and bile ducts: No calcified gallstones are noted. No gallbladder wall thickening, pericholecystic fluid, or pericholecystic inflammatory changes are identified. No dilation of the bile ducts is noted. No calcified stones are seen in the common bile duct. Pancreas: Unremarkable. No dilation of the main pancreatic duct is noted. Spleen: Unremarkable. No splenomegaly is noted. Adrenal glands: There is a small calcification in the left adrenal gland, which may be secondary to old infection or old hemorrhage. The right adrenal gland is unremarkable. Kidneys and ureters: There is bilateral nonobstructive nephrolithiasis. No renal mass is identified. No hydronephrosis or hydroureter. Stomach and bowel: The stomach and small bowel are unremarkable. The sigmoid colon is redundant and dilated, measuring up to 11.5 cm in diameter, containing an air-fluid level. However, no sigmoid volvulus or obstructing mass is noted. No other dilated loops of bowel are present. These findings are likely secondary to an ileus. There is a mild to moderate amount of formed and liquid stool in the rectum. No bowel wall thickening or pneumatosis intestinalis is present. Appendix: Normal. There is no evidence for appendicitis. Intraperitoneal space: No free air. No ascites. No abscess. Retroperitoneal space: No fluid collection. No mass. Vasculature: The abdominal aorta is normal in caliber. There are extensive atherosclerotic calcifications. Lymph nodes: No enlarged lymph nodes. Urinary bladder: The distended urinary bladder is normal in appearance. No stones or masses are seen in the bladder. Reproductive: There are calcifications in the prostate gland. The seminal vesicles are unremarkable. Bones/joints: There is no fracture or dislocation. No suspicious osteolytic or osteoblastic lesion. There are degenerative changes involving the lower thoracic spine, lumbar spine, hips, pubic symphysis, and hands. No suspicious osteolytic or osteoblastic lesion is noted. Soft tissues: There is soft tissue edema adjacent to the left ischium. There is fatty atrophy of the bilateral gluteus minimus and medius muscles. No hernia is noted. IMPRESSION: 1. Distended, redundant sigmoid colon, which is likely secondary to an ileus. No sigmoid volvulus or obstructing colonic mass. 2. Nonobstructive bilateral nephrolithiasis. Electronically signed by: Valeriy Ny On 12/18/2020 00:55:04 AM
--- NOTE | 2020-12-18 00:57 | REPVR ---
PROCEDURE INFORMATION: Exam: XR Chest Exam date and time: 12/18/2020 12:10 AM Age: 75 years old Clinical indication: Fever TECHNIQUE: Imaging protocol: XR of the chest. Views: 1 view. COMPARISON: CT ABD PELVIS W/O CONTRAST 12/18/2020 12:10:01 AM FINDINGS: Lungs: There is left basilar atelectasis. The lung volumes are low. Pleural spaces: Unremarkable. No pleural effusion. No pneumothorax. Heart/Mediastinum: Unremarkable. No cardiomegaly. Vasculature: There are atherosclerotic calcifications of the aortic arch. Bones/joints: There is osteoarthritis of both glenohumeral joints. The right humeral head is high riding, indicating a chronic full-thickness right rotator cuff tear. Gastrointestinal tract: The sigmoid colon is redundant and dilated with gas. The bowel was not fully imaged. IMPRESSION: 1. No radiographic evidence for an acute cardiopulmonary process. 2. Redundant, dilated sigmoid colon. Electronically signed by: Valeriy Ny On 12/18/2020 00:56:45 AM
[2020-12-18] MEDS ORDERED: DEXTROSE 50% 50 ML SYRINGE IV PRN (02:15)
[2020-12-18] MEDS ORDERED: ACETAMINOPHEN TAB 650MG DOSE (2X325MG) PO PRN (02:15)
[2020-12-18] MEDS ORDERED: GLUCAGON INJ 1MG VIAL SC PRN (02:15)
[2020-12-18] MEDS ORDERED: GLUCOSE 4GM CHEW TABLET PO PRN (02:15)
[2020-12-18] MEDS ORDERED: MOM 30ML SUSPENSION UDC PO PRN (02:15)
[2020-12-18] MEDS ORDERED: MAALOX 30 ML SUSP *UDC PO PRN (02:15)
--- NOTE | 2020-12-18 02:21 | HPEPDOC ---
[facility] Medical History & Physical Date of Admission Dec 18, 2020 Date of Service: Dec 18, 2020 Primary Care Physician: Libra You Attending Physician: COLE GOMEZ MD History and Physical TIME OF SERVICE: 340AM CHIEF COMPLAINT: weakness HISTORY OF PRESENT ILLNESS: The history was obtained from the patients daughter the patient wasnt answering my questions. This 75 yr old M has been more weak than usual for a few days, has had a runny nose and low grade fever; today he only took a few bites of food so his daughter brought him in for evaluation. His has also had similar symptoms. 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 FAMILY HISTORY: Father lung CA, Mother CKD, Siblings DM, ALLERGIES: Please see below. HOME MEDICATIONS: Please see below. PHYSICAL EXAMINATION: Vital Signs Date Time Temp Pulse Resp B/P (MAP) Pulse Ox O2 Delivery O2 Flow Rate FiO2 12/17/20 20:14 98.5 89 18 105/61 (76) 94 Room Air 12/18/20 02:16 2.0 GENERAL APPEARANCE: well nourished and developed /NAD HEENT: EOMI / NC in place mask covering lower face CARDIOVASCULAR: RRR/NMRG LUNGS: CTAB / no use of accessory muscles ABDOMEN: convex colour/ soft / he doesnt grimace w palpation INTEGUMENT: not flushed or diaphoretic NEUROLOGICAL: unable to assess bc of poor cooperation PSYCHIATRIC: alert / tracking my movements LABORATORY DATA: Nucleated Red Blood Cells % (auto) 0.0, Prothrombin Time 18.4H, Prothromb Time International Ratio 1.50, Anion Gap 8, Glomerular Filtration Rate 25.9L, Calcium Level 9.1, Coronavirus (COVID-19)(PCR) POSITIVEA, Influenza Type A (RT-PCR) NEGATIVE, Influenza Type B (RT-PCR) NEGATIVE, Respiratory Syncytial Virus (PCR) NEGATIVE IMAGING: Chest xray IMPRESSION: 1. No radiographic evidence for an acute cardiopulmonary process. 2. Redundant, dilated sigmoid colon. CTabd/pelvis IMPRESSION: 1. Distended, redundant sigmoid colon, which is likely secondary to an ileus. No sigmoid volvulus or obstructing colonic mass. 2. Nonobstructive bilateral nephrolithiasis. MICROBIOLOGY: COVID + ASSESSMENT: is a 75 yr old w a hx of IDDM, CVAs, w hempiaresis PVD, HTN, & CKD3, who was brought to the ER for evaluation of weakness c/o his baseline and poor appetite; he is admitted for COVID-19 & LYSSA on CKD. PLAN: 1 COVID 19 Possibly cause if his poor appetite Reason for admission qCSI Score = 5 points = low intermediate risk + hypoxemia (88% on RA) Plan: admit to medical floor / continuous pulse ox / supplemental O2 up to 3L with target O2 sats between 92-95% / contact & air borne precautions / Dexamethasone & Remdisivir / hold iron while acutely ill 2 Ileus Possibly 2/2 Hypokalemia Plan: replete K / day time team to consider KUB +/- Gen Surg consult 3 Hypokalemia 2/2 poor PO intake Plan: replete K & f/u Mg 4 LYSSA on CKD 3 Likely pre-renal due to dehyration; 40% of pts w COVID have LYSSA Plan: monitor UOP / IVF / f/u renal panel, CK, Ulytes for FENa or FEUrea / renal US / hold nephrotoxic drugs (lisinopril, metformin ) 5 IDDM2 Plan: diabetic diet / f/u accuchecks / / hypoglycemia protocol / sliding scale insulin / hold oral anti-glycemic / f/u A1C / decrease long acting insulin from 16 units QHS to 5 units QHS 6 Hx of Recurrent CVAs (pontine, lacunar) w residual hemiparesis / PVD/ DLP Plan: c/w Coumadin / trend INR / ASA and Statin 7 Seizures Likely 2/2 post CVA encephalomalacia Plan: Chantel 7. Essential HTN Plan: metoprolol / lisinopril on hold DVT px w lovenox and ASA Dispo: home after at least 2 midnights stay Laboratory Data CBC/BMP = Home Medications Scheduled Ascorbic Acid (Vitamin C) 500 Mg Tablet, 500 MG PO DAILY Aspirin (Aspirin EC) 81 Mg Tablet.dr, 81 MG PO DAILY Atorvastatin Calcium (Atorvastatin Calcium) 40 Mg Tablet, 40 MG PO QHS Baclofen (Baclofen) 10 Mg Tablet, 10 MG PO TID Ergocalciferol (Vitamin D2) (Vitamin D2) 50,000 Units Cap, 50,000 UNITS PO Q2WK EVERY OTHER WEDNESDAY Ferrous Sulfate (Ferrous Sulfate) 325 Mg Tablet, 325 MG PO DAILY Fluoxetine Hcl (Fluoxetine HCl) 20 Mg Capsule, 20 MG PO DAILY Insulin Glargine (Lantus) 100 Unit/1 Ml Vial, 16 UNITS SC QHS Insulin Human Lispro (Humalog) 100 Unit/1 Ml Vial, 1 DOSE SC AC PER SLIDING SCALE Levetiracetam (Keppra) 500 Mg Tablet, 500 MG PO BID Lisinopril (Lisinopril) 10 Mg Tablet, 10 MG PO BID Metformin HCl (Metformin HCl) 500 Mg Tablet, 500 MG PO BID Metoprolol Tartrate (Metoprolol Tartrate) 25 Mg Tablet, 25 MG PO BID Multivitamins (Thera M Plus Tablet) 1 Each Tablet, 1 TAB PO DAILY Potassium Chloride (Potassium Chloride) 10 Meq Tab.er.prt, 10 MEQ PO WM Vitamin B Complex (Vitamin B Complex) 1 Each Tablet, 1 TAB PO DAILY Warfarin Sodium (Warfarin Sodium) 1 Mg Tablet, 1 MG PO 5XW WEDNESDAY, WEDNESDAY, WEDNESDAY, WEDNESDAY AND WEDNESDAY AT 1700 Warfarin Sodium (Warfarin Sodium) 2 Mg Tablet, 2 MG PO 2XWK WEDNESDAY AND WEDNESDAY AT 1700 Allergies Coded Allergies: No Known Allergies (Unverified , 12/17/20) A-FIB/CHADSVASC A-FIB History Current/History of A-Fib/PAF?: No Current PO Anticoag Therapy: No COLE GOMEZ MD Dec 18, 2020 02:21
[2020-12-18] MEDS ORDERED: FERR1TAB8 PO (02:57)
[2020-12-18] MEDS ORDERED: BACL10TA2 PO (02:57)
[2020-12-18] MEDS ORDERED: FLUO20CA22 PO (02:57)
[2020-12-18] MEDS ORDERED: POTA10TA17 PO (02:57)
[2020-12-18] MEDS ORDERED: WARF4TAB51 PO (02:57)
[2020-12-18] MEDS ORDERED: INSUHUMDS SC (02:57)
[2020-12-18] MEDS ORDERED: METF500T13 PO (02:57)
[2020-12-18] MEDS ORDERED: WARF4TAB52 PO (02:57)
[2020-12-18] MEDS ORDERED: VITATAB73 PO (02:57)
[2020-12-18] MEDS ORDERED: VITA50005 PO (02:57)
[2020-12-18] MEDS ORDERED: METO25TA4 PO (02:57)
[2020-12-18] MEDS ORDERED: LISI10TA22 PO (02:57)
[2020-12-18] MEDS ORDERED: KEPP1TAB PO (02:57)
[2020-12-18] MEDS ORDERED: ATOR40TA75 PO (02:57)
[2020-12-18] MEDS ORDERED: INSULANT SC (02:57)
[2020-12-18] MEDS ORDERED: VITMTA PO (02:57)
[2020-12-18] MEDS ORDERED: C 50TAB PO (02:57)
[2020-12-18] MEDS ORDERED: ASPI-161 PO (02:57)
[2020-12-18 03:54] LABS: D-DIMER QUANT 326.67 ng/ml (<500)
[2020-12-18 04:13] LABS: ALBUMIN 3.2 GM/DL (3.2-5.2); BILIRUBIN,DIRECT 0.1 MG/DL (0.0-0.2); BILIRUBIN,TOTAL 0.2 MG/DL (0.2-1.0); C REACTIVE PROTEIN QUANTITATIV 1.22 MG/DL (0.00-0.30); POTASSIUM SERUM 3.3 MEQ/L (3.5-5.1); TOTAL PROTEIN 6.7 GM/DL (6.4-8.2); TROPONIN I 0.04 NG/ML (< 0.10)
--- NOTE | 2020-12-18 04:22 | REPVR ---
PROCEDURE INFORMATION: Exam: US Retroperitoneal Limited, Kidneys Exam date and time: 12/18/2020 3:43 AM Age: 75 years old Clinical indication: Abnormal findings; Abnormal lab test; Abnormal kidney function lab tests; Additional info: Alexander TECHNIQUE: Imaging protocol: Real-time ultrasound of the retroperitoneum with image documentation. Examination was focused on the kidneys. COMPARISON: CT ABD PELVIS W/O CONTRAST 12/18/2020 12:10 AM FINDINGS: Right kidney: The right kidney measures 10.4 x 5.9 x 5.6 centimetres. No stones. No hydronephrosis. Echogenic vessels likely due to intrarenal vascular calcification is noted. Left kidney: The left kidney measures 10.2 x 4.6 x 5.1 centimetres. No stones. No hydronephrosis. Urinary bladder: Limited views of the urinary bladder demonstrate no intra bladder mass or stone. IMPRESSION: No acute findings. Electronically signed by: Efraín Tony On 12/18/2020 04:21:33 AM
[2020-12-18] MEDS: LEVEMIR (INSULIN DETEMIR) 1 UNITS/0.01ML SC SCH ×2 (06:24→21:00)
[2020-12-18] MEDS ORDERED: REMDESIVIR 200 MG in NS 250 ML IV ONE (06:30)
[2020-12-18] MEDS: ATORVASTATIN 20 MG TAB PO SCH ×2 (06:40→20:12)
[2020-12-18] MEDS: KCL 40MEQ in NS 1000ML 1,000 ML IV SCH ×2 (06:41→16:29)
[2020-12-18 06:51] VITALS: O2SAT 95
[2020-12-18] MEDS: HumaLOG INSULIN (NovoLOG) PER UNIT SC SCH ×4 (07:30→23:32)
[2020-12-18 07:42] LABS: HEMATOCRIT 39.7 % (42.0-52.0); HEMOGLOBIN 12.2 g/dl (13.5-17.5); MEAN CORPUSCULAR HEMOGLOBIN 29.2 pg (27.0-33.0); MEAN CORPUSCULAR HGB CONC 30.7 g/dl (32.0-36.5); PLATELET COUNT, AUTOMATED 133 10^3/uL (150-450); RED BLOOD COUNT 4.18 10^6/uL (4.30-6.10); WHITE BLOOD COUNT 4.1 10^3/uL (4.0-10.0)
[2020-12-18 07:54] LABS: INR 1.63; PROTHROMBIN TIME 19.6 SECONDS (12.5-14.3)
[2020-12-18 08:00] LABS: CALCIUM LEVEL 8.5 MG/DL (8.8-10.2); CREATININE FOR GFR 2.31 MG/DL (0.70-1.30); GLOMERULAR FILTRATION RATE 29.6 (>42); POTASSIUM SERUM 3.1 MEQ/L (3.5-5.1)
[2020-12-18] MEDS ORDERED: POTASSIUM CHLORIDE 10 MEQ SR TABLET PO SCH (08:00)
[2020-12-18 08:20] LABS: HEMOGLOBIN A1c 5.7 %
[2020-12-18] MEDS ORDERED: SODIUM CHLORIDE 0.9% INJ 10 ML SYR IV ONE (08:30)
[2020-12-18] MEDS: levETIRAcetam 250MG TABLET (KEPPRA) PO SCH ×2 (09:12→20:12)
[2020-12-18] MEDS: ENOXAPARIN 30MG/0.3ML SYRINGE (J1650 PER 10MG) SC SCH (09:14)
[2020-12-18] MEDS: dexameTHASONE 4 MG/ML 1ML VIAL (J1100 PER 1MG) IV SCH (09:14)
[2020-12-18] MEDS: FLUoxetine 20 MG CAP PO SCH (09:27)
[2020-12-18] MEDS: BACLOFEN 10 MG TAB PO SCH ×3 (09:27→20:12)
[2020-12-18] MEDS: ASPIRIN 81MG ENTERIC TABLET PO SCH (09:27)
[2020-12-18] MEDS: METOPROLOL TART 25 MG TABLET PO SCH ×2 (09:28→20:12)
[2020-12-18 12:00] VITALS: BP 102/56
[2020-12-18] MEDS: SENOKOT S TAB PO SCH ×3 (13:59→20:48)
[2020-12-18] MEDS: ZINC OXIDE 30.6% CREAM 92GM TUBE (SECURA EPC) TOP PRN (14:02)
--- NOTE | 2020-12-18 14:47 | REP ---
INDICATION: verify NGT placement COMPARISON: 12/17/2020 TECHNIQUE: Portable AP view of the chest FINDINGS: Nasogastric tube in satisfactory position. Stable cardiomegaly and diffuse increased interstitial markings similar to prior examination. IMPRESSION: 1. Nasogastric tube in satisfactory position. 2. Stable appearance to the cardiomegaly and lung carver. <Electronically signed by Cl Taveras > 12/18/20 [id number]
[2020-12-18] MEDS ORDERED: WARFARIN SOD 2MG TAB PO SCH (17:00)
[2020-12-18 20:00] VITALS: BP 112/59; O2SAT 92
[2020-12-18] MEDS ORDERED: HumaLOG INSULIN (NovoLOG) PER UNIT SC SCH (21:00)
[2020-12-18 22:00] VITALS: BP 112/59
[2020-12-19] VITALS (9 sets, daily range): BP systolic 119–180; BP diastolic 62–94; O2SAT 92–94
[2020-12-19] MEDS: KCL 40MEQ in NS 1000ML 1,000 ML IV SCH ×2 (00:44→09:39)
[2020-12-19] MEDS: REMDESIVIR 100 MG in NS 250 ML IV SCH (05:45)
[2020-12-19] MEDS: HumaLOG INSULIN (NovoLOG) PER UNIT SC SCH ×3 (05:45→17:10)
[2020-12-19] MEDS: SODIUM CHLORIDE 0.9% INJ 10 ML SYR IV SCH (06:45)
[2020-12-19 08:16] LABS: HEMATOCRIT 40.5 % (42.0-52.0); HEMOGLOBIN 12.3 g/dl (13.5-17.5); LYMPH # 1.2 10^3/uL (1.5-5.0); LYMPH % 19.9 % (24.0-44.0); MEAN CORPUSCULAR HEMOGLOBIN 29.4 pg (27.0-33.0); MEAN CORPUSCULAR HGB CONC 30.4 g/dl (32.0-36.5); MEAN CORPUSCULAR VOLUME 96.7 fl (80.0-96.0); MONO # 0.5 10^3/uL (0.0-0.8); MONO % 8.3 % (2.0-8.0); NEUTROPHILS # 4.3 10^3/uL (1.5-8.5); NEUTROPHILS % 71.3 % (36.0-66.0); PLATELET COUNT, AUTOMATED 125 10^3/uL (150-450); RED BLOOD COUNT 4.19 10^6/uL (4.30-6.10)
[2020-12-19] MEDS: levETIRAcetam 250MG TABLET (KEPPRA) PO SCH ×2 (08:38→20:12)
[2020-12-19] MEDS: FLUoxetine 20 MG CAP PO SCH (08:38)
[2020-12-19] MEDS: POTASSIUM CHLORIDE 10% LIQ 20 MEQ/15 ML UDC PO SCH (08:38)
[2020-12-19] MEDS: METOPROLOL TART 25 MG TABLET PO SCH ×2 (08:39→20:13)
[2020-12-19] MEDS: ASPIRIN 81MG ENTERIC TABLET PO SCH (08:40)
[2020-12-19] MEDS: SENOKOT S TAB PO SCH ×2 (08:40→20:04)
[2020-12-19] MEDS: BACLOFEN 10 MG TAB PO SCH ×3 (08:40→20:12)
[2020-12-19] MEDS: dexameTHASONE 4 MG/ML 1ML VIAL (J1100 PER 1MG) IV SCH (08:40)
[2020-12-19] MEDS: ENOXAPARIN 30MG/0.3ML SYRINGE (J1650 PER 10MG) SC SCH (08:41)
[2020-12-19 08:42] LABS: ALBUMIN 2.9 GM/DL (3.2-5.2); ALT/SGPT 28 U/L (12-78); BILIRUBIN,DIRECT < 0.1 MG/DL (0.0-0.2); BILIRUBIN,TOTAL 0.2 MG/DL (0.2-1.0); BLOOD UREA NITROGEN 51 MG/DL (7-18); CALCIUM LEVEL 7.6 MG/DL (8.8-10.2); CARBON DIOXIDE LEVEL 16 MEQ/L (21-32); CHLORIDE LEVEL 131 MEQ/L (98-107); CREATININE FOR GFR 2.02 MG/DL (0.70-1.30); GLOMERULAR FILTRATION RATE 34.5 (>42); GLUCOSE, FASTING 98 MG/DL (70-100); MAGNESIUM LEVEL 1.9 MG/DL (1.8-2.4); POTASSIUM SERUM 3.5 MEQ/L (3.5-5.1); SODIUM LEVEL 156 MEQ/L (136-145); TOTAL PROTEIN 6.3 GM/DL (6.4-8.2)
[2020-12-19] MEDS: ZINC OXIDE 30.6% CREAM 92GM TUBE (SECURA EPC) TOP PRN (10:54)
[2020-12-19 14:00] LABS: INR 2.54; PROTHROMBIN TIME 27.9 SECONDS (12.5-14.3)
[2020-12-19] MEDS: KCL 20MEQ IN 0.45NS 1000ML 1,000 ML IV SCH (14:26)
--- NOTE | 2020-12-19 15:57 | IPNPDOC ---
Text Note Date of Service The patient was seen on 12/19/20. NOTE Subjective: Patient was seen and examined this morning at bedside. It appears that at time of admission he wasn't able to answer questions however he was able to answer questions for me this morning. Patient has NG tube in place to low intermittent suction. Tells me his abdominal pain feels better his abdomen feels less distended. He tells me he still feels weak but less than before. There is no acute overnight events reported to me. Objective: Constitutional: Awake and alert, in no apparent distress, NG tube in place ENT: Sclera are clear. Respiratory: Lungs diminished breath sounds bilaterally. No respiratory distress. Cardiovascular: RRR S1 and S2 are normal Gastrointestinal: Abdomen is soft, mild distention, non tender, BS present. Musculoskeletal: No lower extremity edema. Foot deformities. Neurologic: Left hemiparesis Mental Status: A&O 1-2 Assessment/plan: is a 75 yr old w a hx of IDDM, CVAs, w hempiaresis PVD, HTN, & CKD3, who was brought to the ER for evaluation of weakness c/o his baseline and poor appetite; he is admitted for COVID-19 & LYSSA on CKD. # COVID 19: Possibly cause of his poor appetite, in conjunction with the ileus. Reason for admission qCSI Score = 5 points = low intermediate risk + hypoxemia (88% on RA) admit to medical floor, continuous pulse ox, supplemental O2 target O2 sats >90%, Dexamethasone & Remdisivir # Ileus: NG tube in place to low intermittent suction. Abdomen is less distended. Patient reports less abdominal pain. General surgery should it worsen. # Hypokalemia, resolved. Monitor and replace as needed. # Hypernatremia: fluids switched to 1/2NS. Monitor Na. # LYSSA on CKD 3: Improving with IV fluids. Close to baseline. Was likely prerenal due to dehydration. Avoid nephrotoxins. Monitor BMP. # DM: ISS. Frequent Accu-Cheks. Hypoglycemic precautions. # Hx of Recurrent CVAs (pontine, lacunar) w residual hemiparesis / PVD/ DLP Plan: c/w Coumadin / trend INR / ASA and Statin # Seizures Likely 2/2 post CVA encephalomalacia Plan: Chantel # Essential HTN Plan: metoprolol / lisinopril on hold due to LYSSA DVT px w lovenox and ASA A [facility] Dieudonne LOMELI, I+O Dieudonne LOMELI I+O Laboratory Tests 12/19/20 08:03 Vital Signs Date Time Temp Pulse Resp B/P (MAP) Pulse Ox O2 Delivery O2 Flow Rate FiO2 12/19/20 14:00 99.1 83 18 154/72 (99) 92 Nasal Cannula 1.0 I&O- Last 24 Hours up to 6 AM 12/19/20 06:00 Intake Total 3020 ml Output Total 200 ml Balance 2820 ml HANNA LOPEZ MD Dec 19, 2020 15:57
[2020-12-19] MEDS: ASPIRIN 81 MG CHEW TABLET PO SCH (16:16)
[2020-12-19] MEDS ORDERED: WARFARIN SOD 1MG TAB PO SCH (17:00)
[2020-12-19] MEDS: LEVEMIR (INSULIN DETEMIR) 1 UNITS/0.01ML SC SCH (20:04)
[2020-12-19] MEDS: ATORVASTATIN 20 MG TAB PO SCH (20:12)
[2020-12-19] MEDS ORDERED: amLODIPine 5 MG TAB PO ONE (21:50)
[2020-12-20] VITALS (11 sets, daily range): BP systolic 132–170; BP diastolic 70–86; O2SAT 93–96
[2020-12-20] MEDS: KCL 20MEQ IN 0.45NS 1000ML 1,000 ML IV SCH (00:33)
[2020-12-20] MEDS: REMDESIVIR 100 MG in NS 250 ML IV SCH (05:45)
[2020-12-20] MEDS: HumaLOG INSULIN (NovoLOG) PER UNIT SC SCH ×4 (06:00→18:19)
[2020-12-20] MEDS: SODIUM CHLORIDE 0.9% INJ 10 ML SYR IV SCH (06:20)
[2020-12-20] MEDS: POTASSIUM CHLORIDE 10% LIQ 20 MEQ/15 ML UDC PO SCH (08:35)
[2020-12-20] MEDS: FLUoxetine 20 MG CAP PO SCH (08:36)
[2020-12-20] MEDS: levETIRAcetam 250MG TABLET (KEPPRA) PO SCH ×2 (08:36→20:31)
[2020-12-20] MEDS: BACLOFEN 10 MG TAB PO SCH ×3 (08:36→20:30)
[2020-12-20] MEDS: SENOKOT S TAB PO SCH ×2 (08:36→20:31)
[2020-12-20] MEDS: ASPIRIN 81 MG CHEW TABLET PO SCH (08:36)
[2020-12-20] MEDS: dexameTHASONE 4 MG/ML 1ML VIAL (J1100 PER 1MG) IV SCH (08:37)
[2020-12-20] MEDS: ENOXAPARIN 30MG/0.3ML SYRINGE (J1650 PER 10MG) SC SCH (08:37)
[2020-12-20 08:44] LABS: HEMATOCRIT 41.8 % (42.0-52.0); HEMOGLOBIN 12.6 g/dl (13.5-17.5); MEAN CORPUSCULAR HEMOGLOBIN 29.4 pg (27.0-33.0); MEAN CORPUSCULAR HGB CONC 30.1 g/dl (32.0-36.5); MEAN CORPUSCULAR VOLUME 97.4 fl (80.0-96.0); PLATELET COUNT, AUTOMATED 132 10^3/uL (150-450); RED BLOOD COUNT 4.29 10^6/uL (4.30-6.10); WHITE BLOOD COUNT 7.7 10^3/uL (4.0-10.0)
[2020-12-20] MEDS: METOPROLOL TART 25 MG TABLET PO SCH ×2 (08:55→20:30)
[2020-12-20] MEDS: D5W 1,000 ML IV SCH ×2 (08:56→20:31)
[2020-12-20 09:20] LABS: INR 3.68; PROTHROMBIN TIME 37.4 SECONDS (12.5-14.3)
[2020-12-20 09:21] LABS: PARTIAL THROMBOPLASTIN TIME 54.4 SECONDS (24.2-38.5)
[2020-12-20 09:35] LABS: ALBUMIN 2.9 GM/DL (3.2-5.2); ALT/SGPT 31 U/L (12-78); BILIRUBIN,DIRECT < 0.1 MG/DL (0.0-0.2); BILIRUBIN,TOTAL 0.2 MG/DL (0.2-1.0); BLOOD UREA NITROGEN 54 MG/DL (7-18); CALCIUM LEVEL 7.4 MG/DL (8.8-10.2); CARBON DIOXIDE LEVEL 17 MEQ/L (21-32); CHLORIDE LEVEL 131 MEQ/L (98-107); CPK CREATINE PHOSPHOKINASE 441 U/L (39-308); CREATININE FOR GFR 1.72 MG/DL (0.70-1.30); FERRITIN 415 NG/ML (26-388); GLOMERULAR FILTRATION RATE 41.6 (>42); GLUCOSE, FASTING 137 MG/DL (70-100); LDH LACTATE DEHYDROGENASE 238 U/L (87-241); NT-PRO BNP 2765 PG/ML (<125); POTASSIUM SERUM 3.5 MEQ/L (3.5-5.1); SODIUM LEVEL 156 MEQ/L (136-145); TOTAL PROTEIN 6.1 GM/DL (6.4-8.2); TROPONIN I 0.06 NG/ML (< 0.10)
--- NOTE | 2020-12-20 11:18 | IPNPDOC ---
Text Note Date of Service The patient was seen on 12/20/20. NOTE Subjective: Patient was seen and examined this morning at bedside. He denies having abdominal pain today. He had a good-sized bowel movement this morning. He denies fevers or chills. He doesn't feel short of breath. There is no acute overnight events reported to me. Objective: Constitutional: Awake and alert, in no apparent distress, NG tube in place ENT: Sclera are clear. Respiratory: Lungs diminished breath sounds bilaterally. No respiratory distress. Cardiovascular: RRR S1 and S2 are normal Gastrointestinal: Abdomen is soft, mild distention, non tender, BS present. Musculoskeletal: No lower extremity edema. Foot deformities. Neurologic: Left hemiparesis Mental Status: A&O 1-2 Assessment/plan: is a 75 yr old w a hx of IDDM, CVAs, w hempiaresis PVD, HTN, & CKD3, who was brought to the ER for evaluation of weakness c/o his baseline and poor appetite; he is admitted for COVID-19 & LYSSA on CKD. # COVID 19: Possibly cause of his poor appetite, in conjunction with the ileus. Reason for admission qCSI Score = 5 points = low intermediate risk + hypoxemia (88% on RA) continuous pulse ox, supplemental O2 target O2 sats >90%, Dexamethasone & Remdi sivir # Ileus: NG tube in place to low intermittent suction. Abdomen is less distended. Patient reports less abdominal pain. General surgery consult should it not improve in the next 1-2 days. Appears comfortable. # Hypokalemia, resolved. Monitor and replace as needed. # Hypernatremia: fluids switch to D5 water. Monitor sodium. Likely because he hasn't been eating. # LYSSA on CKD 3: Improving with IV fluids. Close to baseline. Was likely prerenal due to dehydration. Avoid nephrotoxins. Monitor BMP. # DM: ISS. Frequent Accu-Cheks. Hypoglycemic precautions. # Hx of Recurrent CVAs (pontine, lacunar) w residual hemiparesis / PVD/ DLP Plan: c/w Coumadin / trend INR / ASA and Statin. INR supratherapeutic today we will hold today's dose and recheck INR tomorrow. # Seizures Likely 2/2 post CVA encephalomalacia Plan: Chantel # Essential HTN Plan: metoprolol / lisinopril on hold due to LYSSA DVT px w lovenox and ASA A [facility] Dieudonne LOMELI I+O Dieudonne LOMELI I+O Laboratory Tests 12/20/20 08:27 Vital Signs Date Time Temp Pulse Resp B/P (MAP) Pulse Ox O2 Delivery O2 Flow Rate FiO2 12/20/20 10:00 97.9 65 17 138/72 (94) 94 Nasal Cannula 1.0 I&O- Last 24 Hours up to 6 AM 12/20/20 06:00 Intake Total 2965 ml Output Total 175 ml Balance 2790 ml HANNA LOPEZ MD Dec 20, 2020 11:05
[2020-12-20] MEDS: LEVEMIR (INSULIN DETEMIR) 1 UNITS/0.01ML SC SCH (20:31)
[2020-12-20] MEDS: ATORVASTATIN 20 MG TAB PO SCH (20:31)
[2020-12-21] VITALS (10 sets, daily range): BP systolic 140–186; BP diastolic 68–98; O2SAT 92–95
[2020-12-21] MEDS: HumaLOG INSULIN (NovoLOG) PER UNIT SC SCH ×4 (01:45→18:04)
[2020-12-21] MEDS: REMDESIVIR 100 MG in NS 250 ML IV SCH (06:32)
[2020-12-21] MEDS: SODIUM CHLORIDE 0.9% INJ 10 ML SYR IV SCH (06:33)
[2020-12-21 07:36] LABS: HEMATOCRIT 39.3 % (42.0-52.0); MEAN CORPUSCULAR HEMOGLOBIN 28.9 pg (27.0-33.0); MEAN CORPUSCULAR HGB CONC 30.5 g/dl (32.0-36.5); MEAN CORPUSCULAR VOLUME 94.7 fl (80.0-96.0); PLATELET COUNT, AUTOMATED 140 10^3/uL (150-450); RED BLOOD COUNT 4.15 10^6/uL (4.30-6.10); WHITE BLOOD COUNT 7.4 10^3/uL (4.0-10.0)
[2020-12-21 07:53] LABS: PROTHROMBIN TIME 49.4 SECONDS (12.5-14.3)
[2020-12-21 08:07] LABS: INR 5.25
[2020-12-21 08:22] LABS: ALBUMIN 2.8 GM/DL (3.2-5.2); BILIRUBIN,TOTAL 0.3 MG/DL (0.2-1.0); CALCIUM LEVEL 7.6 MG/DL (8.8-10.2); CREATININE FOR GFR 1.58 MG/DL (0.70-1.30); GLOMERULAR FILTRATION RATE 45.9 (>42); POTASSIUM SERUM 2.9 MEQ/L (3.5-5.1); TOTAL PROTEIN 5.9 GM/DL (6.4-8.2)
[2020-12-21] MEDS: SENOKOT S TAB PO SCH ×2 (09:00→20:20)
[2020-12-21] MEDS: FLUoxetine 20 MG CAP PO SCH (09:23)
[2020-12-21] MEDS: dexameTHASONE 4 MG/ML 1ML VIAL (J1100 PER 1MG) IV SCH (09:23)
[2020-12-21] MEDS: levETIRAcetam 250MG TABLET (KEPPRA) PO SCH ×2 (09:23→20:19)
[2020-12-21] MEDS: BACLOFEN 10 MG TAB PO SCH ×3 (09:23→20:20)
[2020-12-21] MEDS: ASPIRIN 81 MG CHEW TABLET PO SCH (09:23)
[2020-12-21] MEDS: POTASSIUM CHLORIDE 10% LIQ 20 MEQ/15 ML UDC PO SCH (09:23)
[2020-12-21] MEDS: ENOXAPARIN 30MG/0.3ML SYRINGE (J1650 PER 10MG) SC SCH (09:24)
[2020-12-21] MEDS: D5W 1,000 ML IV SCH ×2 (09:24→20:21)
[2020-12-21] MEDS: METOPROLOL TART 25 MG TABLET PO SCH ×2 (09:24→20:20)
--- NOTE | 2020-12-21 10:28 | REP ---
INDICATION: Reassess development of ileus COMPARISON: 12/18/2020 TECHNIQUE: Axial noncontrast images from the lung bases to the pubic symphysis with coronal and sagittal reformations. This CT examination was performed using the following dose reduction techniques: Automated exposure control, adjustment of mA and/or kv according to the patient's size, and use of iterative reconstruction technique. FINDINGS: Lung bases demonstrate chronic changes including calcified granuloma with superimposed bibasilar atelectasis (left greater than right). Liver, spleen, pancreas, gallbladder, bilateral adrenal glands are grossly normal and stable. Kidneys again demonstrate small nonobstructing intrarenal calculi measuring up to 3-4 mm without acute perinephric stranding or hydroureteronephrosis. The small bowel is unremarkable and without small bowel obstruction. The colon demonstrates significant fecal stasis from the cecum through the mid descending colon followed by considerable predominately air-filled distention to redundant sigmoid colon tapering with air-fluid level through the distal sigmoid and rectosigmoid colon without evidence for obvious obstruction or volvulus. At the air-fluid junction within the distal sigmoid there are small uniformly rounded lucent structures floating at the air-fluid junction (series 201 images 100-125; series 202 images 50-53) which appear to be ingested structures and warrant correlation. Pelvis demonstrates normal bladder and age-appropriate prostate/seminal vesicles. No ascites. No free air. No adenopathy. No focal inflammatory stranding. Abdominal aorta without aneurysm. Musculoskeletal structures are intact and without acute osseous abnormality. IMPRESSION: 1. Bibasilar atelectasis slightly increased from prior examination. 2. Significant air-filled distention to the redundant sigmoid colon without volvulus. However, floating at the air-fluid junction within the tapering distal sigmoid there are uniformly rounded small lucent structures which are nonspecific, but require correlation with possibility of ingested material. The structures do not appear to be causing obstruction. Remainder of the enteric system is relatively unremarkable as described above. 3. No further acute abdominopelvic pathology appreciated. Chronic findings as above. <Electronically signed by Cl Taveras > 12/21/20 1024
[2020-12-21] MEDS ORDERED: BISACODYL 10 MG SUPP PR ONE (12:05)
--- NOTE | 2020-12-21 12:19 | IPNPDOC ---
Text Note Date of Service The patient was seen on 12/21/20. NOTE Subjective: Patient was reclined in bed when I evaluated him. He is awake & alert. He denies any pain at this time. CT scan of the abdomen today shows continued ileus. He apparently is not passing much gas. He had a bowel movement yesterday, per nursing he just has liquid stools into diaper. His breathing seems to be doing well today, he is not on oxygen at this time. He does not have any questions for me at this time. Objective: Constitutional: Awake and alert, in no apparent distress, NG tube in place ENT: Sclera are clear. Respiratory: Lungs diminished breath sounds bilaterally. No respiratory distress. Cardiovascular: RRR S1 and S2 are normal Gastrointestinal: Abdomen is soft, distended, tympanic to percussion, non tender, BS are quiet and slow, but present. Musculoskeletal: No lower extremity edema. Foot deformities. Left sided hemiparesis Neurologic: Left hemiparesis Mental Status: A&O 1-2 Assessment/plan: is a 75 yr old w a hx of IDDM, CVAs, w hempiaresis PVD, HTN, & CKD3, who was brought to the ER for evaluation of weakness c/o his baseline and poor appetite; he is admitted for COVID-19 & LYSSA on CKD. # COVID 19: Possibly cause of his poor appetite, in conjunction with the ileus. Reason for admission qCSI Score = 5 points = low intermediate risk + hypoxemia (88% on RA) - continuous pulse ox - supplemental O2 target O2 sats >90%, off oxygen today - Continue Dexamethasone & Remdisivir # Ileus: NG tube in place to low intermittent suction. - Patient doesn't have pain today - Will consult General surgery, appreciate their recommendations - Will add simethicone & docusate suppository # Hypokalemia - Low again today, he is recieveing supplemental Kcl in the mornings, an additional dose of Kcl will be given tonight & we'll recheck tomorrow. # Hypernatremia: - fluids switch to D5. - Monitor sodium daily. - Likely because he hasn't been eating. # LYSSA on CKD 3: - Improving with IV fluids. - Close to baseline. - Was likely prerenal due to dehydration. Avoid nephrotoxins. Monitor BMP. # DM: ISS. Frequent Accu-Cheks. Hypoglycemic precautions. # Hx of Recurrent CVAs (pontine, lacunar) w residual hemiparesis / PVD/ DLP Plan: c/w Coumadin / trend INR / ASA and Statin. -INR supratherapeutic again today we will hold today's dose and recheck INR daily. # Seizures Likely 2/2 post CVA encephalomalacia Plan: Chantel # Essential HTN: -metoprolol / lisinopril on hold due to LYSSA DVT px -warfarin VS,Fishbone, I+O VS, Fishbone, I+O Laboratory Tests 12/21/20 07:16 Vital Signs Date Time Temp Pulse Resp B/P (MAP) Pulse Ox O2 Delivery O2 Flow Rate FiO2 12/21/20 09:24 76 140/82 12/21/20 08:00 97.4 17 93 Room Air 12/20/20 16:00 1.0 I&O- Last 24 Hours up to 6 AM 12/21/20 05:59 Intake Total 555 ml Output Total 50 ml Balance 505 ml JIMMIE BLUM DO Dec 21, 2020 12:19
[2020-12-21] MEDS: SIMETHICONE 80MG CHEW TAB PO SCH ×2 (13:48→18:04)
[2020-12-21] MEDS ORDERED: WARFARIN SOD 1MG TAB PO SCH (17:00)
[2020-12-21] MEDS ORDERED: POTASSIUM CHLORIDE 10% LIQ 20 MEQ/15 ML UDC PO ONE (17:00)
[2020-12-21] MEDS: ATORVASTATIN 20 MG TAB PO SCH (20:20)
[2020-12-21] MEDS: LEVEMIR (INSULIN DETEMIR) 1 UNITS/0.01ML SC SCH (20:20)
[2020-12-22] VITALS (7 sets, daily range): BP systolic 138–172; BP diastolic 54–88; O2SAT 93–96
[2020-12-22] MEDS: HumaLOG INSULIN (NovoLOG) PER UNIT SC SCH ×5 (00:10→21:41)
[2020-12-22] MEDS: SIMETHICONE 80MG CHEW TAB PO SCH ×4 (00:11→17:41)
[2020-12-22] MEDS: REMDESIVIR 100 MG in NS 250 ML IV SCH (06:05)
[2020-12-22] MEDS: SODIUM CHLORIDE 0.9% INJ 10 ML SYR IV SCH (06:05)
[2020-12-22 07:59] LABS: HEMATOCRIT 38.5 % (42.0-52.0); HEMOGLOBIN 12.1 g/dl (13.5-17.5); MEAN CORPUSCULAR HEMOGLOBIN 29.4 pg (27.0-33.0); MEAN CORPUSCULAR HGB CONC 31.4 g/dl (32.0-36.5); MEAN CORPUSCULAR VOLUME 93.4 fl (80.0-96.0); PLATELET COUNT, AUTOMATED 156 10^3/uL (150-450); RED BLOOD COUNT 4.12 10^6/uL (4.30-6.10); WHITE BLOOD COUNT 8.8 10^3/uL (4.0-10.0)
[2020-12-22 08:40] LABS: PROTHROMBIN TIME 62.2 SECONDS (12.5-14.3)
[2020-12-22 08:41] LABS: INR 7.03
[2020-12-22 08:56] LABS: ALBUMIN 2.7 GM/DL (3.2-5.2); BILIRUBIN,DIRECT 0.1 MG/DL (0.0-0.2); BILIRUBIN,TOTAL 0.3 MG/DL (0.2-1.0); CALCIUM LEVEL 7.3 MG/DL (8.8-10.2); CREATININE FOR GFR 1.44 MG/DL (0.70-1.30); GLOMERULAR FILTRATION RATE 51.1 (>42); POTASSIUM SERUM 2.9 MEQ/L (3.5-5.1); TOTAL PROTEIN 5.8 GM/DL (6.4-8.2); TROPONIN I 0.05 NG/ML (< 0.10)
[2020-12-22] MEDS ORDERED: POTASSIUM CHLORIDE 10% LIQ 20 MEQ/15 ML UDC PO SCH (09:00)
[2020-12-22] MEDS ORDERED: BISACODYL 10 MG SUPP PR SCH (09:00)
[2020-12-22] MEDS ORDERED: PHYTONADIONE 1.25 MG 1/4 TAB PO ONE (09:05)
[2020-12-22] MEDS: BACLOFEN 10 MG TAB PO SCH ×3 (09:41→21:27)
[2020-12-22] MEDS: FLUoxetine 20 MG CAP PO SCH (09:42)
[2020-12-22] MEDS: ASPIRIN 81 MG CHEW TABLET PO SCH (09:42)
[2020-12-22] MEDS: SENOKOT S TAB PO SCH ×2 (09:42→21:27)
[2020-12-22] MEDS: dexameTHASONE 4 MG/ML 1ML VIAL (J1100 PER 1MG) IV SCH (09:43)
[2020-12-22] MEDS: ENOXAPARIN 30MG/0.3ML SYRINGE (J1650 PER 10MG) SC SCH (09:43)
[2020-12-22] MEDS: METOPROLOL TART 25 MG TABLET PO SCH ×2 (09:43→21:27)
[2020-12-22] MEDS: levETIRAcetam 250MG TABLET (KEPPRA) PO SCH ×2 (09:44→21:27)
[2020-12-22] MEDS: D5W 1,000 ML IV SCH (09:58)
--- NOTE | 2020-12-22 10:05 | REP ---
INDICATION: Bowel obstruction COMPARISON: CT dated 12/21/2020 TECHNIQUE: Portable supine views of the abdomen and pelvis. FINDINGS: The markedly distended sigmoid colon is unchanged. Previous CT demonstrated no obvious mechanical obstruction or obvious volvulus. A nasogastric tube is identified in satisfactory position within the left upper quadrant. IMPRESSION: Markedly distended sigmoid colon unchanged from recent CT. <Electronically signed by Cl Taveras > 12/22/20 1006
[2020-12-22] MEDS: BISACODYL 10 MG SUPP PR SCH ×2 (11:53→21:27)
[2020-12-22] MEDS ORDERED: POTASSIUM CHLORIDE 10 MEQ SR TABLET PO ONE (13:30)
--- NOTE | 2020-12-22 16:09 | IPNPDOC ---
Text Note Date of Service The patient was seen on 12/22/20. NOTE Subjective: He is awake and alert again today. He seems to be in good spirits. He is not complaining of any pain at this time. He is grateful to have the NG tube removed. Otherwise, he does not have any other implants or concerns at this time. Objective: Constitutional: Awake and alert, in no apparent distress ENT: Sclera are clear. Respiratory: Lungs diminished breath sounds bilaterally. No respiratory distress. Cardiovascular: RRR S1 and S2 are normal Gastrointestinal: Abdomen is soft, distended, tympanic to percussion, non tender, BS slow but present. Musculoskeletal: No lower extremity edema. Foot deformities. Left sided hemiparesis Neurologic: Left hemiparesis Mental Status: A&O 1-2 Assessment/plan: is a 75 yr old w a hx of IDDM, CVAs, w hempiaresis PVD, HTN, & CKD3, who was brought to the ER for evaluation of weakness c/o his baseline and poor appetite; he is admitted for COVID-19 & LYSSA on CKD. # COVID 19: Possibly cause of his poor appetite, in conjunction with the ileus. Reason for admission qCSI Score = 5 points = low intermediate risk + hypoxemia (88% on RA) - continuous pulse ox - saturating well on room air now - Continue Dexamethasone & Remdisivir # Ileus: - NG tube will be removed today per recommendations from surgery, which sounds appropriate since his small bowel is decompressed & ileus is colonic. - Patient doesn't have pain today - KUB ordered for today - Continue simethicone # Hypokalemia - Low again today - likely secondary to diarrhea - Increase dose of Kcl supplementation to 40mg PO TID for today, then reevaluate BMP tomorrow again # Hypernatremia: - Continue D5. - Monitor sodium daily. # LYSSA on CKD 3: - Appears to be at baseline now. - Was likely prerenal due to dehydration - Monitor daily BMP. - Will d/c fluids today and start on clear liquid diet # DM: ISS. Frequent Accu-Cheks. Hypoglycemic precautions. # Hx of Recurrent CVAs (pontine, lacunar) w residual hemiparesis / PVD/ DLP Pl an: c/w Coumadin / trend INR / ASA and Statin. - INR supratherapeutic again today - Warfarin discontinued for now as his INR continues to trend upward - Given one dose of Vitamin K 1.25mg today - recheck INR daily. 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
[2020-12-22] MEDS: ATORVASTATIN 20 MG TAB PO SCH (21:27)
[2020-12-22] MEDS: POTASSIUM CHLORIDE 10 MEQ SR TABLET PO SCH (21:27)
[2020-12-22] MEDS: LEVEMIR (INSULIN DETEMIR) 1 UNITS/0.01ML SC SCH (21:41)
--- NOTE | 2020-12-22 21:48 | CR ---
CONSULTATION DATE: 12/21/2020 REASON FOR CONSULTATION: Abdominal distention. BRIEF HISTORY OF PRESENT ILLNESS: The patient is a 75-year-old male who presents with weakness, fatigue, runny nose, low grade fever and essentially was COVID positive, came into the hospital for this issue, had x-rays which revealed a possible ileus given some abdominal distention issues. The patient had some ongoing diarrheal bowel movements. PAST MEDICAL HISTORY: Significant for a history of recurrent CVAs, history of residual hemiparesis, history of small vessel ischemic disease, peripheral vascular disease and insulin depend diabetes mellitus, dyslipidemia, hypertension, chronic kidney disease, atherosclerosis, osteomyelitis of the right heel, debridement of heel ulcers. MEDICATIONS: 1. Vitamin C. 2. Aspirin. 3. Atorvastatin. 4. Baclofen. 5. Vitamin D. 6. Iron. 7. Fluoxetine. 8. Insulin. 9. Keppra. 10. Lisinopril. 11. Metformin. 12. Metoprolol. 13. Thera-M. 14. Potassium. 15. Vitamin B. 16. Coumadin. PHYSICAL EXAMINATION: GENERAL APPEARANCE: A 75-year-old male who looks older than stated age, has expressive aphasia as well as difficulty with communication, has had a hemiparesis on the left side and has had an osteomyelitis of his right heel with distortion of this. He is not able to answer questions to any questions to any significant amount although can answer yes or no questions apparently. LUNGS: Somewhat rhonchorous but otherwise clear. HEART: Regular. ABDOMEN: Distended, tympanitic but without any guarding, rebound or peritoneal signs. IMPRESSION AND PLAN: The patient's x-rays were reviewed. CT scan was reviewed and there really does not appear to be bowel obstruction. However, he has some significantly dilated sigmoid colon, no evidence of volvulus appreciated and it probably is a functional ileus associated with his ongoing as the most likely etiology. I do feel that continuing his NG tube and seeing how he does with this overnight is reasonable but it may be reasonable as well to start clamping his tube given that he really has not had much out and he has these diarrheal bowel movements. We will see him later on today and determine our next course of action and see how he does by the morning.
--- NOTE | 2020-12-22 22:17 | IPN ---
PROGRESS NOTE DATE: 12/22/2020 SUBJECTIVE: Patient overall has been stable overnight and really his NG tube has not put out anything, no residuals on his NG tube and I am not seeing a lot of small bowel air and it seems unlikely that he is having a lot of aerophaghia, although that was one of my concerns with his respiratory issues that this was a component of the reason why he was having colonic distention and thus without that history, I do feel that it is reasonable to discontinue his NG tube. Otherwise, he is still is distended and tympanitic, but he is nontender still. No guarding. No rebound. I did review his CAT scan again today and looking at it, there is a potential that his bladder is actually partially compressing the proximal rectum/rectosigmoid junction. Thus I have asked the nurse to perform some residuals (post void) and if there is any significant amount of residual, I would like to have him have a Busch overnight to see if that makes any difference with his stool output. Otherwise the question obviously is whether to place a rectal tube to see if there is some increased tone at the anus that is contributing to this difficulty with the decompression or even a rectal tube more proximally. We will see what the urine output issue is and the post void residuals, and depending on the results of this, may determine our next course of action. I would recommend that we continue doing some suppositories for right now. Stool softeners I do not feel are as necessary and still this seems much more of a functional issue than a mechanical problem at this time, but we will be better able to determine this with the post void residuals. Once again may need further evaluation of the lower rectum if we do not have improvement over the ensuing few days.
[2020-12-23] VITALS (10 sets, daily range): BP systolic 88–148; BP diastolic 49–74; O2SAT 93–96
[2020-12-23] MEDS: SIMETHICONE 80MG CHEW TAB PO SCH ×4 (00:24→17:54)
[2020-12-23 05:26] LABS: APPEARANCE, URINE CLOUDY (CLEAR); BACTERIA, URINE AUTO NEGATIVE (NEGATIVE); BILIRUBIN, URINE AUTO NEGATIVE (NEGATIVE); BLOOD, URINE BLOOD 3+ (NEGATIVE); COLOR, URINE RED (YELLOW); GLUCOSE, URINE (UA) AUTO NEGATIVE (NEGATIVE); KETONE, URINE AUTO NEGATIVE (NEGATIVE); LEUKOCYTE ESTERASE, URINE AUTO 3+ (NEGATIVE); NITRITE, URINE AUTO NEGATIVE (NEGATIVE); PROTEIN, URINE AUTO 2+ mg/dL (NEGATIVE); RBC, URINE AUTO TNTC /HPF (0-3); SPECIFIC GRAVITY URINE AUTO 1.015 (1.002-1.035); SQUAMOUS EPITHELIAL CELL UR AU 0 /HPF (0-6); UROBILINOGEN, URINE AUTO 0.2 mg/dL (0.0-2.0); WBC, URINE AUTO TNTC /HPF (0-3)
[2020-12-23 07:28] LABS: HEMATOCRIT 39.7 % (42.0-52.0); HEMOGLOBIN 12.2 g/dl (13.5-17.5); MEAN CORPUSCULAR HEMOGLOBIN 28.3 pg (27.0-33.0); MEAN CORPUSCULAR HGB CONC 30.7 g/dl (32.0-36.5); MEAN CORPUSCULAR VOLUME 92.1 fl (80.0-96.0); PLATELET COUNT, AUTOMATED 173 10^3/uL (150-450); RED BLOOD COUNT 4.31 10^6/uL (4.30-6.10); WHITE BLOOD COUNT 10.1 10^3/uL (4.0-10.0)
[2020-12-23 07:33] LABS: CALCIUM LEVEL 7.6 MG/DL (8.8-10.2); CREATININE FOR GFR 1.47 MG/DL (0.70-1.30); GLOMERULAR FILTRATION RATE 49.9 (>42); POTASSIUM SERUM 3.5 MEQ/L (3.5-5.1)
[2020-12-23 07:45] LABS: PROTHROMBIN TIME 47.7 SECONDS (12.5-14.3)
[2020-12-23 08:39] LABS: INR 5.02
[2020-12-23] MEDS: BACLOFEN 10 MG TAB PO SCH ×3 (09:49→19:55)
[2020-12-23] MEDS: SENOKOT S TAB PO SCH ×2 (09:50→19:56)
[2020-12-23] MEDS: ENOXAPARIN 30MG/0.3ML SYRINGE (J1650 PER 10MG) SC SCH (09:51)
[2020-12-23] MEDS: POTASSIUM CHLORIDE 10 MEQ SR TABLET PO SCH ×2 (09:51→19:54)
[2020-12-23] MEDS: FLUoxetine 20 MG CAP PO SCH (09:51)
[2020-12-23] MEDS: levETIRAcetam 250MG TABLET (KEPPRA) PO SCH ×2 (09:52→19:55)
[2020-12-23] MEDS: METOPROLOL TART 25 MG TABLET PO SCH ×2 (09:53→19:56)
[2020-12-23] MEDS: BISACODYL 10 MG SUPP PR SCH ×2 (09:53→19:56)
[2020-12-23] MEDS: ASPIRIN 81 MG CHEW TABLET PO SCH (09:53)
[2020-12-23] MEDS: dexameTHASONE 4 MG/ML 1ML VIAL (J1100 PER 1MG) IV SCH (09:53)
[2020-12-23] MEDS: HumaLOG INSULIN (NovoLOG) PER UNIT SC SCH ×4 (09:54→20:03)
--- NOTE | 2020-12-23 10:12 | REP ---
INDICATION: Bowel Obstruction. COMPARISON: 12/22/2020 FINDINGS: KUB shows portions of the colon to be markedly distended status quo. The organ silhouettes are for the most part obscured. There is no gross evidence of free intraperitoneal air. IMPRESSION: No change <Electronically signed by Hansel Anand > 12/23/20 100
--- NOTE | 2020-12-23 16:38 | IPNPDOC ---
Text Note Date of Service The patient was seen on 12/23/20. NOTE Subjective: The patient reports that his belly is feeling much better. On the x-ray still has a significant amount of colonic distention. Urine has a significant amount of blood in it, however H&H remained stable. INR is trending down. Warfarin is still on hold. Apparently is having some coughing with consumption of liquids, therefore a speech therapy consult will be ordered at this time, and until they're able to see him put him on nectar thick liquids. Otherwise, he does not have any other complaints at this time, and remainder of the review of systems is negative. Objective: Constitutional: Awake and alert, in no apparent distress ENT: Sclera are clear. Respiratory: Lungs diminished breath sounds bilaterally. No respiratory distress. Cardiovascular: RRR S1 and S2 are normal Gastrointestinal: Abdomen is soft, distended, tympanic to percussion, non tender, BS present. Musculoskeletal: No lower extremity edema. Foot deformities. Left sided hemiparesis Neurologic: Left hemiparesis Mental Status: A&O 1-2 Assessment/plan: is a 75 yr old w a hx of IDDM, CVAs, w hempiaresis PVD, HTN, & CKD3, who was brought to the ER for evaluation of weakness c/o his baseline and poor appetite; he is admitted for COVID-19 & LYSSA on CKD. # COVID 19: Possibly cause of his poor appetite, in conjunction with the ileus. Reason for admission qCSI Score = 5 points = low intermediate risk + hypoxemia (88% on RA) - continuous pulse ox - saturating well on room air now - Continue Dexamethasone & Remdisivir # Colonic Ileus: - He is having multiple liquid stools daily, repeat KUB today still shows significant gas distention - Busch catheter is now in place, and does have some blood in the urine. H&H still stable -Still doesn't have pain today - KUB ordered daily - Continue simethicone # Hypokalemia - Low again today - likely secondary to diarrhea - Increase dose of Kcl supplementation to 40mg PO TID for today, then reevaluate BMP tomorrow again # Hypernatremia: - Continue D5. - Monitor sodium daily. # LYSSA on CKD 3: - Appears to be at baseline now. - Was likely prerenal due to dehydration - Monitor daily BMP. - Will d/c fluids today and start on clear liquid diet # DM: ISS. Frequent Accu-Cheks. Hypoglycemic precautions. # Hx of Recurrent CVAs (pontine, lacunar) w residual hemiparesis / PVD/ DLP Plan: c/w Coumadin / trend INR / ASA and Statin. - INR supratherapeutic again today, but improving. Continue to hold warfarin - recheck INR daily. 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
[2020-12-23] MEDS: ATORVASTATIN 20 MG TAB PO SCH (19:55)
[2020-12-23] MEDS: LEVEMIR (INSULIN DETEMIR) 1 UNITS/0.01ML SC SCH (20:03)
[2020-12-24] VITALS: O2SAT 95
[2020-12-24] MEDS: SIMETHICONE 80MG CHEW TAB PO SCH ×5 (00:58→23:09)
[2020-12-24 05:41] VITALS: BP 134/60; O2SAT 93
[2020-12-24 06:05] VITALS: O2SAT 93
[2020-12-24 07:42] LABS: HEMATOCRIT 38.9 % (42.0-52.0); HEMOGLOBIN 12.1 g/dl (13.5-17.5); MEAN CORPUSCULAR HEMOGLOBIN 28.9 pg (27.0-33.0); MEAN CORPUSCULAR HGB CONC 31.1 g/dl (32.0-36.5); MEAN CORPUSCULAR VOLUME 92.8 fl (80.0-96.0); PLATELET COUNT, AUTOMATED 202 10^3/uL (150-450); RED BLOOD COUNT 4.19 10^6/uL (4.30-6.10)
[2020-12-24 07:54] LABS: PROTHROMBIN TIME 55.8 SECONDS (12.5-14.3)
[2020-12-24 08:11] LABS: ALBUMIN 2.6 GM/DL (3.2-5.2); ALT/SGPT 34 U/L (12-78); BILIRUBIN,DIRECT 0.2 MG/DL (0.0-0.2); BILIRUBIN,TOTAL 0.4 MG/DL (0.2-1.0); BLOOD UREA NITROGEN 47 MG/DL (7-18); CALCIUM LEVEL 8.3 MG/DL (8.8-10.2); CARBON DIOXIDE LEVEL 19 MEQ/L (21-32); CHLORIDE LEVEL 124 MEQ/L (98-107); CPK CREATINE PHOSPHOKINASE 131 U/L (39-308); CREATININE FOR GFR 1.86 MG/DL (0.70-1.30); FERRITIN 402 NG/ML (26-388); GLUCOSE, FASTING 274 MG/DL (70-100); LDH LACTATE DEHYDROGENASE 207 U/L (87-241); NT-PRO BNP 2590 PG/ML (<125); POTASSIUM SERUM 3.7 MEQ/L (3.5-5.1); SODIUM LEVEL 148 MEQ/L (136-145); TOTAL PROTEIN 6.2 GM/DL (6.4-8.2); TROPONIN I < 0.02 NG/ML (< 0.10)
[2020-12-24 08:20] LABS: INR 6.12
[2020-12-24] MEDS: levETIRAcetam 250MG TABLET (KEPPRA) PO SCH ×2 (08:53→20:21)
[2020-12-24] MEDS: POTASSIUM CHLORIDE 10 MEQ SR TABLET PO SCH ×2 (08:53→20:20)
[2020-12-24] MEDS: ASPIRIN 81 MG CHEW TABLET PO SCH (08:53)
[2020-12-24] MEDS: SENOKOT S TAB PO SCH ×2 (08:53→20:23)
[2020-12-24] MEDS: BACLOFEN 10 MG TAB PO SCH ×3 (08:54→20:22)
[2020-12-24] MEDS: BISACODYL 10 MG SUPP PR SCH ×2 (08:54→20:03)
[2020-12-24] MEDS: HumaLOG INSULIN (NovoLOG) PER UNIT SC SCH ×4 (08:54→20:19)
[2020-12-24] MEDS: METOPROLOL TART 25 MG TABLET PO SCH ×2 (08:55→20:21)
[2020-12-24] MEDS: FLUoxetine 20 MG CAP PO SCH (08:55)
[2020-12-24] MEDS: dexameTHASONE 4 MG/ML 1ML VIAL (J1100 PER 1MG) IV SCH (08:55)
--- NOTE | 2020-12-24 11:22 | IPN ---
PROGRESS NOTE DATE: 12/24/2020 SUBJECTIVE: Patient was seen and examined at the bedside. Chart has been reviewed. Rectal tube has been placed and Busch catheter due to urinary retention. Patient's INR is elevated at 6.12 with no overt GI bleed, no hematemesis, bright red blood per rectum, melena, black tarry stools or hematuria. No bleeding at I.V. sites. No fever or chills overnight. OBJECTIVE: Vital signs: Temperature 96.8, pulse 71, respiratory rate 18, blood pressure 134/60, 93% on room air. General: Awake, alert, oriented to himself, slow to respond, in no distress being fed at the bedside with nectar thickened liquids. HEENT: Face is symmetric. Heart: S1 and S2 sinus rhythm. Lungs: Diminished. No wheezing or rales. Abdomen: Soft, nontender, nondistended. Genitourinary: Busch catheter in place. Rectal: Rectal tube in place. Extremities: Patient has an ulcer at the right heel. No pitting edema. ASSESSMENT: This is a 75-year-old male admitted on 12/18/2020 with complaints of generalized weakness with history of recurrent CVA, pontine, lacunar with chronic right sided hemiparesis, small vessel ischemic disease, peripheral vascular disease, diabetes, hypertension, dyslipidemia, CKD 3, valgus deformity of the feet, osteomyelitis of the right tallus, culture positive for Serratia and debridement of heel ulcers currently with the following issues: 1. Coronavirus 19 infection. 2. Colonic ileus. 3. Dehydration. 4. Hypernatremia. 5. Hypokalemia. 6. Acute on chronic renal failure stage 3. 7. Type-2 diabetes. 8. History of recurrent CVAs with elevated INR/supratherapeutic INR due to warfarin and Coronavirus. 9. History of seizures. 10. Hypertension. PLAN: Continue to hold patient's warfarin until the INR is at 3 then may resume low dose warfarin. Currently with a rectal tube and Busch catheter placed. Completed 5 days of I.V. remdesivir, currently still on I.V. Decadron. On nectar thickened liquids. MTDD
[2020-12-24 14:25] VITALS: BP 110/80
[2020-12-24 20:00] VITALS: BP 130/74
[2020-12-24] MEDS: LEVEMIR (INSULIN DETEMIR) 1 UNITS/0.01ML SC SCH (20:19)
[2020-12-24] MEDS: ATORVASTATIN 20 MG TAB PO SCH (20:22)
[2020-12-25] VITALS: BP 116/58
[2020-12-25] MEDS: SIMETHICONE 80MG CHEW TAB PO SCH ×3 (05:52→17:19)
[2020-12-25 06:00] VITALS: BP 121/65
[2020-12-25 07:18] LABS: HEMATOCRIT 37.6 % (42.0-52.0); HEMOGLOBIN 11.9 g/dl (13.5-17.5); MEAN CORPUSCULAR HEMOGLOBIN 29.3 pg (27.0-33.0); MEAN CORPUSCULAR HGB CONC 31.6 g/dl (32.0-36.5); MEAN CORPUSCULAR VOLUME 92.6 fl (80.0-96.0); PLATELET COUNT, AUTOMATED 219 10^3/uL (150-450); RED BLOOD COUNT 4.06 10^6/uL (4.30-6.10); WHITE BLOOD COUNT 13.1 10^3/uL (4.0-10.0)
[2020-12-25 07:40] LABS: INR 8.4; PROTHROMBIN TIME 71.6 SECONDS (12.5-14.3)
[2020-12-25 07:41] LABS: CALCIUM LEVEL 8.1 MG/DL (8.8-10.2); CREATININE FOR GFR 1.68 MG/DL (0.70-1.30); GLOMERULAR FILTRATION RATE 42.7 (>42); POTASSIUM SERUM 4.2 MEQ/L (3.5-5.1)
[2020-12-25] MEDS ORDERED: PILL CUTTER 1 EACH XX PRN (08:05)
[2020-12-25] MEDS ORDERED: PHYTONADIONE 5 MG TAB PO ONE (08:15)
[2020-12-25] MEDS: HumaLOG INSULIN (NovoLOG) PER UNIT SC SCH ×4 (08:53→20:21)
[2020-12-25] MEDS: FLUoxetine 20 MG CAP PO SCH (08:54)
[2020-12-25] MEDS: BACLOFEN 10 MG TAB PO SCH ×3 (08:54→20:18)
[2020-12-25] MEDS: ASPIRIN 81 MG CHEW TABLET PO SCH (08:55)
[2020-12-25] MEDS: METOPROLOL TART 25 MG TABLET PO SCH ×2 (08:55→20:19)
[2020-12-25] MEDS: levETIRAcetam 250MG TABLET (KEPPRA) PO SCH ×2 (08:55→20:19)
[2020-12-25] MEDS: POTASSIUM CHLORIDE 10 MEQ SR TABLET PO SCH ×2 (08:55→20:20)
[2020-12-25] MEDS: dexameTHASONE 4 MG/ML 1ML VIAL (J1100 PER 1MG) IV SCH (08:55)
[2020-12-25] MEDS: BISACODYL 10 MG SUPP PR SCH ×2 (08:56→20:21)
[2020-12-25] MEDS: SENOKOT S TAB PO SCH ×2 (08:56→20:21)
[2020-12-25] MEDS ORDERED: PHYTONADIONE 5 MG TAB PO SCH (09:00)
--- NOTE | 2020-12-25 11:57 | IPNPDOC ---
Date Seen The patient was seen on 12/25/20. Progress Note S: still w rectal tube now acidotic and remains hypernatremic. c/o thirst but on nectar thickened liquids. no overt bleeding despite inr 8. no c/o sob. occasional dry cough. no fever or chills O: PE: vitals: see below GEN:no distress. answers questions appropriately HEENT: Face is symmetric. tongue midline moist mm Heart: S1 and S2 sinus rhythm. Lungs: Diminished. No wheezing or rales. Abdomen: Soft, nontender, nondistended. +bs Genitourinary: Busch catheter in place. Rectal: Rectal tube in place. Extremities: charcot foot. multiple right heel ulcers. No pitting edema. laboratory data, imaging studies, microbiology: see below ASSESSMENT: This is a 75-year-old male admitted on 12/18/2020 with complaints of generalized weakness with history of recurrent CVA, pontine, lacunar with chronic right sided hemiparesis, small vessel ischemic disease, peripheral vascular disease, diabetes, hypertension, dyslipidemia, CKD 3, valgus deformity of the feet, osteomyelitis of the right tallus, culture positive for Serratia and debridement of heel ulcers currently with the following issues: 1. Coronavirus 19 infection/diarrhea 2. Colonic ileus. 3. Dehydration. 4. Hypernatremia. 5. Hypokalemia. 6. Acute on chronic renal failure stage 3/metabolic acidosis. 7. Type-2 diabetes. 8. History of recurrent CVAs with elevated INR/supratherapeutic INR due to warfarin and Coronavirus. 9. History of seizures. 10. Hypertension. 11. multiple le ulcers/charcot foot PLAN: bicarb iv gtt tele monitor calcium and supplement as needed. completed iv remdesevir on iv decadron. recheck bmp to correct electrolytes and monitor sodium q6hrs. low dose vit k due to elevated inr. podiatry consulted for lower extremity ulcer debridement. VS, I&O, 24H, Fishbone Vital Signs/I&O Vital Signs Date Time Temp Pulse Resp B/P (MAP) Pulse Ox O2 Delivery O2 Flow Rate FiO2 12/25/20 08:55 75 121/65 12/25/20 06:00 98.8 18 96 Room Air 12/20/20 16:00 1.0 I&O- Last 24 Hours up to 6 AM 12/25/20 06:00 Intake Total 2310 ml Output Total 1075 ml Balance 1235 ml Laboratory Data 24H LABS Laboratory Tests 2 12/24/20 16:25: Bedside Glucose (Misc Panel) 284H 12/24/20 19:46: Bedside Glucose (Misc Panel) 292H 12/25/20 05:50: Bedside Glucose (Misc Panel) 197H 12/25/20 07:05: Nucleated Red Blood Cells % (auto) 0.0, Prothrombin Time 71.6H, Prothromb Time International Ratio 8.40*H, Anion Gap 7L, Glomerular Filtration Rate 42.7, Calcium Level 8.1L 12/25/20 11:38: Bedside Glucose (Misc Panel) 277H CBC/BMP Laboratory Tests 12/25/20 07:05 GUY SCHMITZ MD Dec 25, 2020 11:57
[2020-12-25 14:00] VITALS: BP 140/60
[2020-12-25] MEDS: SODIUM BICARBONATE 325 MG TAB PO SCH ×3 (14:18→20:19)
[2020-12-25] MEDS: SODIUM BICARBONATE 100 MEQ in D5W 1,000 ML IV SCH (14:44)
--- NOTE | 2020-12-25 15:22 | REP ---
INDICATION: Bowel Obstruction. COMPARISON: 12/24/2020 as well as other prior exams. TECHNIQUE: AP supine portable abdomen. FINDINGS: Markedly dilated right colon appears essentially unchanged. There is also a segment of dilated colon in the left abdomen which is essentially unchanged. Diffuse vascular calcifications are present. There are degenerative changes of the spine. IMPRESSION: No significant change. <Electronically signed by Anil Dominique > 12/25/20 [id number]
--- NOTE | 2020-12-25 15:57 | REP ---
INDICATION: Bowel Obstruction. COMPARISON: 12/23/2020. TECHNIQUE: AP view abdomen and pelvis FINDINGS: There is significant distension of the colon which is stable. There are scattered vascular calcifications. There are degenerative changes of the spine. IMPRESSION: Stable exam. <Electronically signed by Anil Dominique > 12/25/20 [id number]
[2020-12-25] MEDS: ATORVASTATIN 20 MG TAB PO SCH (20:19)
[2020-12-25] MEDS: LEVEMIR (INSULIN DETEMIR) 1 UNITS/0.01ML SC SCH (20:20)
[2020-12-25 22:00] VITALS: BP 116/58
[2020-12-26] VITALS (7 sets, daily range): BP systolic 138–165; BP diastolic 74–82; O2SAT 93–95
[2020-12-26] MEDS: SODIUM BICARBONATE 100 MEQ in D5W 1,000 ML IV SCH (01:33)
[2020-12-26] MEDS: SIMETHICONE 80MG CHEW TAB PO SCH ×4 (01:33→17:04)
[2020-12-26 07:39] LABS: HEMATOCRIT 34.6 % (42.0-52.0); HEMOGLOBIN 10.9 g/dl (13.5-17.5); MEAN CORPUSCULAR HEMOGLOBIN 28.9 pg (27.0-33.0); MEAN CORPUSCULAR HGB CONC 31.5 g/dl (32.0-36.5); MEAN CORPUSCULAR VOLUME 91.8 fl (80.0-96.0); PLATELET COUNT, AUTOMATED 196 10^3/uL (150-450); RED BLOOD COUNT 3.77 10^6/uL (4.30-6.10); WHITE BLOOD COUNT 10.9 10^3/uL (4.0-10.0)
[2020-12-26 07:51] LABS: INR 4.74; PROTHROMBIN TIME 45.7 SECONDS (12.5-14.3)
[2020-12-26 08:03] LABS: CREATININE FOR GFR 1.53 MG/DL (0.70-1.30); GLOMERULAR FILTRATION RATE 47.6 (>42); POTASSIUM SERUM 3.8 MEQ/L (3.5-5.1)
[2020-12-26] MEDS: BISACODYL 10 MG SUPP PR SCH ×2 (09:00→21:00)
[2020-12-26] MEDS: HumaLOG INSULIN (NovoLOG) PER UNIT SC SCH ×4 (09:00→21:25)
[2020-12-26] MEDS: SENOKOT S TAB PO SCH ×2 (09:00→21:00)
[2020-12-26] MEDS: POTASSIUM CHLORIDE 10 MEQ SR TABLET PO SCH ×2 (09:01→21:27)
[2020-12-26] MEDS: ASPIRIN 81 MG CHEW TABLET PO SCH (09:01)
[2020-12-26] MEDS: dexameTHASONE 4 MG/ML 1ML VIAL (J1100 PER 1MG) IV SCH (09:01)
[2020-12-26] MEDS: BACLOFEN 10 MG TAB PO SCH ×3 (09:02→21:26)
[2020-12-26] MEDS: levETIRAcetam 250MG TABLET (KEPPRA) PO SCH ×2 (09:02→21:26)
[2020-12-26] MEDS: SODIUM BICARBONATE 325 MG TAB PO SCH ×4 (09:02→21:26)
[2020-12-26] MEDS: FLUoxetine 20 MG CAP PO SCH (09:02)
[2020-12-26] MEDS: NS 0.45% 1,000 ML IV SCH ×2 (09:03→21:27)
[2020-12-26] MEDS: METOPROLOL TART 25 MG TABLET PO SCH ×2 (09:03→21:26)
--- NOTE | 2020-12-26 13:02 | IPNPDOC ---
Date Seen The patient was seen on 12/26/20. Progress Note S: still w copious amount of liquid stool no fever/chills/cough off bicarb gtt no c/o sob. hematuria cleared . no more blood clots pt denies trauma O: PE: vitals: see below GEN: no pallor or icterus no distress. answers questions appropriately HEENT: Face is symmetric. tongue midline moist mm Heart: S1 and S2 sinus rhythm. Lungs: Diminished. No wheezing or rales. Abdomen: Soft, nontender, nondistended. +bs Genitourinary: Busch catheter in place.bloody urine but clears erythematous scrotum Rectal: Rectal tube in place. Extremities: charcot foot. multiple right heel ulcers. No pitting edema. laboratory data, imaging studies, microbiology: see below ASSESSMENT: This is a 75-year-old male admitted on 12/18/2020 with complaints of generalized weakness with history of recurrent CVA, pontine, lacunar with chronic right sided hemiparesis, small vessel ischemic disease, peripheral vascular disease, diabetes, hypertension, dyslipidemia, CKD 3, valgus deformity of the feet, osteomyelitis of the right tallus, culture positive for Serratia and debridement of heel ulcers currently with the following issues: 1. Coronavirus 19 infection/diarrhea 2. Colonic ileus. 3. Dehydration. 4. Hypernatremia. 5. Hypokalemia. 6. Acute on chronic renal failure stage 3/metabolic acidosis. 7. Type-2 diabetes. 8. History of recurrent CVAs with elevated INR/supratherapeutic INR due to warfarin and Coronavirus. 9. History of seizures. 10. Hypertension. 11. multiple le ulcers/charcot foot 12. metabolic acidosis due to diarrhea, resolved 13. gross hematuria 14. acute blood loss due to hematuria PLAN: inr 4 after vit k 2.5 mg yesterday. hematuria clears no blood clots still needing ivf due to ongoing liquid stools from galaviz virus at baseline ckd3. no signs of fluid overload. surgery following. no acute indication for rbc transfusion. unable to keep up with fluid loss with his thickened liquid intake. VS, I&O, 24H, Fishbone Vital Signs/I&O Vital Signs Date Time Temp Pulse Resp B/P (MAP) Pulse Ox O2 Delivery O2 Flow Rate FiO2 12/26/20 12:00 94 Room Air 12/26/20 09:03 78 12/26/20 09:02 138/76 12/26/20 06:00 98.2 24 12/20/20 16:00 1.0 I&O- Last 24 Hours up to 6 AM 12/26/20 06:00 Intake Total 3850 ml Output Total 1550 ml Balance 2300 ml Laboratory Data 24H LABS Laboratory Tests 2 12/25/20 16:49: Bedside Glucose (Misc Panel) 266H 12/25/20 19:37: Bedside Glucose (Misc Panel) 411H 12/26/20 07:17: Nucleated Red Blood Cells % (auto) 0.0, Prothrombin Time 45.7H, Prothromb Time International Ratio 4.74, Anion Gap 7L, Glomerular Filtration Rate 47.6, Calcium Level 8.0L 12/26/20 11:51: Bedside Glucose (Misc Panel) 367H CBC/BMP Laboratory Tests 12/26/20 07:17 GUY SCHMITZ MD Dec 26, 2020 13:02
[2020-12-26 14:40] LABS: CALCIUM LEVEL 8.3 MG/DL (8.8-10.2); CREATININE FOR GFR 1.48 MG/DL (0.70-1.30); GLOMERULAR FILTRATION RATE 49.5 (>42); POTASSIUM SERUM 4.4 MEQ/L (3.5-5.1)
--- NOTE | 2020-12-26 14:55 | REP ---
INDICATION: Bowel Obstruction. COMPARISON: Yesterday FINDINGS: Once again, there is gaseous distention of the colon status quo. No free intraperitoneal air has developed. IMPRESSION: No significant change <Electronically signed by Hansel Anand > 12/26/20 [id number]
[2020-12-26] MEDS: LEVEMIR (INSULIN DETEMIR) 1 UNITS/0.01ML SC SCH (21:25)
[2020-12-26] MEDS: ATORVASTATIN 20 MG TAB PO SCH (21:26)
[2020-12-27] VITALS (9 sets, daily range): BP systolic 140–163; BP diastolic 67–80; O2SAT 92–94
[2020-12-27] MEDS: SIMETHICONE 80MG CHEW TAB PO SCH ×4 (00:50→17:00)
--- NOTE | 2020-12-27 08:54 | REP ---
INDICATION: Bowel Obstruction. COMPARISON: Comparison is made with recent abdominal radiographs and CT study from December 21, 2020. Most recent KUB is from 12/26/2020.. TECHNIQUE: Portable KUB: Two views provided. FINDINGS: Today's radiograph again demonstrates marked distension of the sigmoid colon. The air distended sigmoid colon loop measures up to 20.6 cm in transverse dimension today. This dimension with 16.9 cm on yesterday's radiograph and there is some formed stool in the right and transverse segments of the colon. There is a paucity of gas in the region of the rectum. Approximately 12 cm on December 21, 2020 CT study. IMPRESSION: Persistent, and possibly progressive gaseous distention of the sigmoid colon, marked in degree. The plain film radiographic pattern is suggestive of of sigmoid volvulus. <Electronically signed by Williams Key > 12/27/20 [id number]
[2020-12-27] MEDS: SENOKOT S TAB PO SCH ×2 (09:00→20:38)
[2020-12-27] MEDS: BISACODYL 10 MG SUPP PR SCH ×2 (09:00→20:38)
[2020-12-27] MEDS: HumaLOG INSULIN (NovoLOG) PER UNIT SC SCH ×4 (09:18→20:36)
[2020-12-27] MEDS: METOPROLOL TART 25 MG TABLET PO SCH ×2 (09:18→20:37)
[2020-12-27] MEDS: SODIUM BICARBONATE 325 MG TAB PO SCH ×2 (09:19→20:37)
[2020-12-27] MEDS: ASPIRIN 81 MG CHEW TABLET PO SCH (09:19)
[2020-12-27] MEDS: POTASSIUM CHLORIDE 10 MEQ SR TABLET PO SCH ×2 (09:19→20:38)
[2020-12-27] MEDS: levETIRAcetam 250MG TABLET (KEPPRA) PO SCH ×2 (09:19→20:37)
[2020-12-27] MEDS: FLUoxetine 20 MG CAP PO SCH (09:19)
[2020-12-27] MEDS: dexameTHASONE 4 MG/ML 1ML VIAL (J1100 PER 1MG) IV SCH (09:20)
[2020-12-27 09:49] LABS: HEMATOCRIT 36.9 % (42.0-52.0); HEMOGLOBIN 11.6 g/dl (13.5-17.5); MEAN CORPUSCULAR HEMOGLOBIN 28.8 pg (27.0-33.0); MEAN CORPUSCULAR HGB CONC 31.4 g/dl (32.0-36.5); MEAN CORPUSCULAR VOLUME 91.6 fl (80.0-96.0); PLATELET COUNT, AUTOMATED 233 10^3/uL (150-450); RED BLOOD COUNT 4.03 10^6/uL (4.30-6.10); WHITE BLOOD COUNT 11.8 10^3/uL (4.0-10.0)
[2020-12-27 10:05] LABS: INR 3.57; PROTHROMBIN TIME 36.5 SECONDS (12.5-14.3)
[2020-12-27 10:22] LABS: CALCIUM LEVEL 7.8 MG/DL (8.8-10.2); CREATININE FOR GFR 1.4 MG/DL (0.70-1.30); GLOMERULAR FILTRATION RATE 52.7 (>42); POTASSIUM SERUM 3.8 MEQ/L (3.5-5.1)
[2020-12-27] MEDS: BACLOFEN 10 MG TAB PO SCH ×3 (10:38→20:37)
[2020-12-27] MEDS ORDERED: SODI325T9 PO (11:04)
[2020-12-27] MEDS ORDERED: LEVE1INJ5 SC (11:04)
--- NOTE | 2020-12-27 11:15 | IPNPDOC ---
Date Seen The patient was seen on 12/27/20. Progress Note S: less stool output via rectal tube denies n/v. tolerating diet. no cough/sob/fever/chils O: PE: vitals: see below GEN: aaox 3 no distress HEENT: Face is symmetric. tongue midline moist mm Heart: S1 and S2 sinus rhythm. Lungs: Diminished. No wheezing or rales. Abdomen: Soft, nontender, nondistended. +bs Rectal: Rectal tube in place. Extremities: charcot foot. multiple right heel ulcers. No pitting edema. laboratory data, imaging studies, microbiology: see below ASSESSMENT: This is a 75-year-old male admitted on 12/18/2020 with complaints of generalized weakness with history of recurrent CVA, pontine, lacunar with chronic right sided hemiparesis, small vessel ischemic disease, peripheral vascular disease, diabetes, hypertension, dyslipidemia, CKD 3, valgus deformity of the feet, osteomyelitis of the right tallus, culture positive for Serratia and debridement of heel ulcers currently with the following issues: 1. Coronavirus 19 infection/diarrhea, resolved s/p remdesevir, iv decadron, rectal tube to be removed today since not much output overnight. 2. Colonic ileus. rectal tube to be removed 3. Dehydration. resolved w ivfluids 4. Hypernatremia. resolved w ivfluids. on thickened liquids monitor to see if remains stable w/o ivfluid support 5. Hypokalemia. resolved 6. Acute on chronic renal failure stage 3/metabolic acidosis. back to baseline renal function. s/p ivfluids . trial of voiding today dc [place] continue bicarb tabs. 7. Type-2 diabetes. continue levemir at 10 units. hold if glucose<180 8. History of recurrent CVAs with elevated INR/supratherapeutic INR due to warfarin and Coronavirus. s/p one dose of vitamin k 2.5 mg with inr 3.75. may resume warfarin at home dose in am. 9. History of seizures. on chronic keppra 10. Hypertension. on lisinopril 10 mg bid with good control 11. multiple le ulcers/charcot foot farm specialist from PT recommends podiatry consult which was called into Dr. Vasquez's office on 12/25/20. await podiatry recommendations. 12. metabolic acidosis due to diarrhea, resolving off iv bicarbonate gtt. still on po bicarb supplement changed to 650 mg bid repeat bmp in am, and since diarrhea has subsided, pt will not need too much correction hopefully 13. gross hematuria stable hemoglobin. no recurrent episode. dc [place] today 14. acute blood loss due to hematuria resolved w/o recurrent clots . dc [place] today and trial of voiding disposition: once bicarb is normal, december dc home Wednesday. dc [place] today-trial of voiding dc rectal tube today-monitor bicarbonate /metabolic acidosis and correct . discussed w daughter who wants to take pt home and refuses placement. daughter says she has her brother and her paternal aunt who is an RN to help her at home. VS, I&O, 24H, Fishbone Vital Signs/I&O Vital Signs Date Time Temp Pulse Resp B/P (MAP) Pulse Ox O2 Delivery O2 Flow Rate FiO2 12/27/20 09:18 85 130/70 12/27/20 08:00 92 Room Air 12/27/20 06:00 98.4 19 I&O- Last 24 Hours up to 6 AM 12/27/20 06:00 Intake Total 2850 ml Output Total 2895 ml Balance -45 ml Laboratory Data 24H LABS Laboratory Tests 2 12/26/20 11:51: Bedside Glucose (Misc Panel) 367H 12/26/20 14:02: Anion Gap 8, Glomerular Filtration Rate 49.5, Calcium Level 8.3L, Whole Blood Ionized Calcium 4.3L 12/26/20 16:57: Bedside Glucose (Misc Panel) 353H 12/26/20 19:28: Bedside Glucose (Misc Panel) 350H 12/27/20 07:27: Bedside Glucose (Misc Panel) 168H 12/27/20 09:21: Nucleated Red Blood Cells % (auto) 0.0, Prothrombin Time 36.5H, Prothromb Time International Ratio 3.57, Anion Gap 11, Glomerular Filtration Rate 52.7, Calcium Level 7.8L CBC/BMP Laboratory Tests 12/26/20 14:02 12/27/20 09:21 GUY SCHMITZ MD Dec 27, 2020 11:15
--- NOTE | 2020-12-27 13:37 | CR ---
CONSULTATION DATE: 12/27/2020 TIME: Approximately 12:45 p.m. CHIEF COMPLAINT: Patient seen for evaluation of ulceration on the plantar aspect of the right foot. 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 The patient now has an ulceration on his right foot and he is seen today for evaluation. PAST MEDICAL HISTORY: 1. Positive for CVA. 2. Small vessel ischemia. 3. Peripheral vascular disease. 4. Insulin-dependent diabetes mellitus. 5. Kidney disease stage 3. 6. Essential hypertension. ALLERGIES: NONE. HOME MEDICATIONS: 1. Vitamin C 500 mg PO daily. 2. 81 mg Enteric-Coated Aspirin daily. 3. Atorvastatin 40 mg PO at nighttime. 4. Baclofen 10 mg PO three times a day. 5. Vitamin D2 50,000 units PO two times a week. 6. Ferrous Sulfate 325 mg daily. 7. Fluoxetine 20 mg daily. 8. Lantus. 9. Keppra 500 mg PO twice daily. 10. Lisinopril 10 mg PO twice daily. 11. Metformin 500 mg PO twice daily. 12. Metoprolol 25 mg PO twice daily. 13. Potassium Chloride 10 mEq. 14. Vitamin B complex. 15. Warfarin 1 mg PO five times a week. PHYSICAL EXAMINATION: Patient is seen for evaluation of ulcer on his right foot. He has a valgus deformity of his foot with flat plantar surface. There is an ulceration prior to debridement on the midfoot, pre-debridement measuring 15 mm x 9 mm x 2 mm in depth with 10 mm hyperkeratotic rim. An incisional debridement was performed through the level of the subcutaneous and fascial structures. Hemostasis was obtained with compression. Post-debridement the ulcer measures 20 mm x 9 mm x 2 mm in depth with rim of 7. There are no signs of infection. ASSESSMENT: Stage 4 ulceration plantar surface right foot. PLAN: After informed consent was obtained excisional debridement was performed as described above. Compressive dressing was applied to the patient's right foot. Tomorrow the patient may have this removed and switched to foam dressing. This can be changed every three days unless there is saturation. The patient's questions were answered. Thank you for this consultation.
[2020-12-27] MEDS ORDERED: SODI650T PO (15:56)
[2020-12-27] MEDS ORDERED: LANTINJ4 SC (15:58)
[2020-12-27] MEDS ORDERED: METF500T13 PO (15:59)
[2020-12-27] MEDS: ATORVASTATIN 20 MG TAB PO SCH (20:37)
[2020-12-27] MEDS ORDERED: LEVEMIR (INSULIN DETEMIR) 1 UNITS/0.01ML SC SCH (21:00)
[2020-12-28] VITALS: O2SAT 93
[2020-12-28] MEDS: SIMETHICONE 80MG CHEW TAB PO SCH ×3 (00:11→12:53)
[2020-12-28 04:00] VITALS: O2SAT 93
[2020-12-28 05:39] VITALS: BP 138/70
[2020-12-28] MEDS ORDERED: LANTINJ4 SC (06:31)
[2020-12-28] MEDS ORDERED: PRED10TA2 PO (06:33)
[2020-12-28 07:34] LABS: HEMATOCRIT 35.5 % (42.0-52.0); HEMOGLOBIN 11.2 g/dl (13.5-17.5); MEAN CORPUSCULAR HEMOGLOBIN 29.5 pg (27.0-33.0); MEAN CORPUSCULAR HGB CONC 31.5 g/dl (32.0-36.5); MEAN CORPUSCULAR VOLUME 93.4 fl (80.0-96.0); PLATELET COUNT, AUTOMATED 230 10^3/uL (150-450); WHITE BLOOD COUNT 11.9 10^3/uL (4.0-10.0)
[2020-12-28 07:47] LABS: INR 2.67
[2020-12-28 07:54] LABS: CALCIUM LEVEL 7.7 MG/DL (8.8-10.2); CREATININE FOR GFR 1.34 MG/DL (0.70-1.30); GLOMERULAR FILTRATION RATE 55.5 (>42); POTASSIUM SERUM 3.9 MEQ/L (3.5-5.1)
[2020-12-28] MEDS ORDERED: FLOM0.4C39 PO (08:13)
[2020-12-28] MEDS: BISACODYL 10 MG SUPP PR SCH (09:00)
[2020-12-28] MEDS: SENOKOT S TAB PO SCH (09:00)
[2020-12-28 09:15] VITALS: BP 138/70
[2020-12-28] MEDS: METOPROLOL TART 25 MG TABLET PO SCH (09:15)
[2020-12-28] MEDS: ASPIRIN 81 MG CHEW TABLET PO SCH (09:15)
[2020-12-28] MEDS: levETIRAcetam 250MG TABLET (KEPPRA) PO SCH (09:15)
[2020-12-28] MEDS: HumaLOG INSULIN (NovoLOG) PER UNIT SC SCH ×2 (09:15→12:53)
[2020-12-28] MEDS: POTASSIUM CHLORIDE 10 MEQ SR TABLET PO SCH (09:16)
[2020-12-28] MEDS: FLUoxetine 20 MG CAP PO SCH (09:16)
[2020-12-28] MEDS: SODIUM BICARBONATE 325 MG TAB PO SCH (09:16)
[2020-12-28] MEDS: BACLOFEN 10 MG TAB PO SCH (09:16)
--- NOTE | 2020-12-28 09:42 | REP ---
INDICATION: Bowel Obstruction COMPARISON: 12/27/2020 TECHNIQUE: Supine view of the abdomen and pelvis. FINDINGS: Markedly dilated presumed colon including sigmoid again noted and essentially unchanged. Underlying elements of fecal stasis/constipation. Small bowel is incompletely evaluated, but unchanged and unlikely to exhibited small-bowel obstruction. IMPRESSION: No significant change from prior examination. Markedly distended air-filled sigmoid colon. <Electronically signed by Cl Taveras > 12/28/20 [id number]
--- NOTE | 2020-12-28 09:45 | DS.PDOC ---
Discharge Summary General Date of Admission Dec 18, 2020 at 02:14 Date of Discharge 12/28/20 Discharge Summary DISCHARGE DIAGNOSES: 1. Coronavirus 19 infection/diarrhea 2. Colonic ileus. 3. Dehydration. 4. Hypernatremia. 5. Hypokalemia. 6. Acute on chronic renal failure stage 3/metabolic acidosis. 7. Type-2 diabetes. 8. History of recurrent CVAs with elevated INR/supratherapeutic INR due to warfarin and Coronavirus. 9. History of seizures. 10. Hypertension. 11. multiple le ulcers/charcot foot 12. RIGHT PLANTAR ULCER 13. URINE RETENTION FAILED ON VOIDING TRIAL, FRIAS PLACED at hospital discharge DISCHARGE MEDICATIONS: SEE BELOW DISCHARGE INSTRUCTIONS: PCP TO DO REPEAT INR ON WEDNESDAY OR WEDNESDAY TO ADJUST WARFARIN. UROLOGY FOR URINE RETENTION/FRIAS AT DISCHARGE-PT TO CALL FOR CYSTOSCOPY [address] LOCO FOR ILEUS 1WK HOSPITAL COURSE: This is a 75-year-old male admitted on 12/18/2020 with complaints of generalized weakness with history of recurrent CVA, pontine, lacunar with chronic right sided hemiparesis, small vessel ischemic disease, peripheral vascular disease, diabetes, hypertension, dyslipidemia, CKD 3, valgus deformity of the feet, osteomyelitis of the right tallus, culture positive for Serratia and debridement of heel ulcers currently with the following issues: 1. Coronavirus 19 infection/diarrhea, resolved s/p remdesevir, s/p iv decadron, rectal tube removed since not much output overnight. prednisone taper as outpt 2. Colonic ileus. rectal tube removed 3. Dehydration. resolved w ivfluids 4. Hypernatremia. resolved w ivfluids. on thickened liquids remained stable w/o ivfluid support 5. Hypokalemia. resolved with oral supplement, and iv fluids 6. Acute on chronic renal failure stage 3/metabolic acidosis. back to baseline renal function. s/p ivfluids . trial of voiding failed placed frias at discharge. urology referral as outpt. trial of flomax. continue bicarb tabs. 7. Type-2 diabetes. increased levemir to home dose for better control . has lantus at home at 16 units daily 8. History of recurrent CVAs with elevated INR/supratherapeutic INR due to warfarin and Coronavirus. s/p one dose of vitamin k 2.5 mg with inr 3.75. may resume warfarin at home dose at home.recheck inr wed or wednesday and pcp to adjust dose 9. History of seizures. on chronic keppra 10. Hypertension. on lisinopril 10 mg bid with good control 11. multiple le ulcers/valgus deformity of feet/ chronic right heel ulcer radiological health specialist from PT recommends podiatry consult which was called into Dr. Vasquez's office podiatry recommendations. 12. metabolic acidosis due to diarrhea, resolved off iv bicarbonate gtt. still on po bicarb supplement changed to 650 mg bid 13. gross hematuria resolved stable hemoglobin. no recurrent episode. 14. acute blood loss due to hematuria resolved w/o recurrent clots . DISCHARGE PHYSICAL EXAMINATION: VITALS: SEE BELOW GEN: aaox 3 no distress HEENT: Face is symmetric. tongue midline moist mm Heart: S1 and S2 sinus rhythm. Lungs: Diminished. No wheezing or rales. Abdomen: Soft, nontender, nondistended. +bs Extremities: valgus deformity of b/l feet. right plantar stage 4 ulcer. No pitting edema. DISCHARGE LABS/MICRO/IMAGING STUDIES: SEE BELOW TIME SPENT ON DISCHARGE: 30 MIN. Vital Signs/I&Os Vital Signs Date Time Temp Pulse Resp B/P (MAP) Pulse Ox O2 Delivery O2 Flow Rate FiO2 12/28/20 09:15 69 138/70 12/28/20 05:39 97.4 17 93 Room Air I&O- Last 24 Hours up to 6 AM 12/28/20 06:00 Intake Total 1900 ml Output Total 1475 ml Balance 425 ml Laboratory Data Labs 24H Laboratory Tests 2 12/27/20 12:30: Bedside Glucose (Misc Panel) 230H 12/27/20 16:41: Bedside Glucose (Misc Panel) 238H 12/27/20 19:34: Bedside Glucose (Misc Panel) 337H 12/28/20 06:44: Nucleated Red Blood Cells % (auto) 0.2H, Prothrombin Time 29.0H, Prothromb Time International Ratio 2.67, Anion Gap 6L, Glomerular Filtration Rate 55.5, Calcium Level 7.7L CBC/BMP Laboratory Tests 12/28/20 06:44 FSBS Laboratory Tests Test 12/27/20 12:30 12/27/20 16:41 12/27/20 19:34 Range/Units Bedside Glucose (Misc Panel) 230 238 337 83-110 MG/DL Discharge Medications Scheduled Ascorbic Acid (Vitamin C) 500 Mg Tablet, 500 MG PO DAILY, (Reported) Aspirin (Aspirin EC) 81 Mg Tablet.dr, 81 MG PO DAILY, (Reported) Atorvastatin Calcium (Atorvastatin Calcium) 40 Mg Tablet, 40 MG PO QHS, (Reported) Baclofen (Baclofen) 10 Mg Tablet, 10 MG PO TID, (Reported) Ergocalciferol (Vitamin D2) (Vitamin D2) 50,000 Units Cap, 50,000 UNITS PO Q2WK, (Reported) EVERY OTHER WEDNESDAY Ferrous Sulfate (Ferrous Sulfate) 325 Mg Tablet, 325 MG PO DAILY, (Reported) Fluoxetine Hcl (Fluoxetine HCl) 20 Mg Capsule, 20 MG PO DAILY, (Reported) Insulin Glargine,Hum.rec.anlog (Lantus Solostar) 100 Unit/1 Ml Insuln.pen, 16 UNIT SC QPM Insulin Human Lispro (Humalog) 100 Unit/1 Ml Vial, 1 DOSE SC AC, (Reported) PER SLIDING SCALE Levetiracetam (Keppra) 500 Mg Tablet, 500 MG PO BID, (Reported) Lisinopril (Lisinopril) 10 Mg Tablet, 10 MG PO BID, (Reported) Metformin HCl (Metformin HCl) 500 Mg Tablet, 1 TAB PO BID Metoprolol Tartrate (Metoprolol Tartrate) 25 Mg Tablet, 25 MG PO BID, (Reported) Multivitamins (Thera M Plus Tablet) 1 Each Tablet, 1 TAB PO DAILY, (Reported) Potassium Chloride (Potassium Chloride) 10 Meq Tab.er.prt, 10 MEQ PO WM, (Reported) Prednisone (Prednisone) 10 Mg Tablet, 10 MG PO TAPER Take 4 tabs daily x 3 days, then 3 tabs daily x 3 days, then 2 tabs daily x 3 days, then 1 tab daily x 3 days and stop Sodium Bicarbonate (Sodium Bicarbonate) 650 Mg Tablet, 650 MG PO BID for indigestion Tamsulosin HCl (Flomax) 0.4 Mg Capsule, 0.4 MG PO DAILY Vitamin B Complex (Vitamin B Complex) 1 Each Tablet, 1 TAB PO DAILY, (Reported) Warfarin Sodium (Warfarin Sodium) 1 Mg Tablet, 1 MG PO 5XW, (Reported) WEDNESDAY, WEDNESDAY, WEDNESDAY, WEDNESDAY AND SATURDAY AT 1700 Warfarin Sodium (Warfarin Sodium) 2 Mg Tablet, 2 MG PO 2XWK, (Reported) WEDNESDAY AND WEDNESDAY AT 1700 Allergies Coded Allergies: No Known Allergies (Unverified , 12/17/20) GUY SCHMITZ MD December 28, 2020 09:42
[2020-12-28 10:27] VITALS: O2SAT 92
--- NOTE | 2020-12-28 14:29 | IPN ---
PROGRESS NOTE DATE: 12/28/2020 Patient had urine retention, 500 mL on postvoid residual on bladder scan after Busch catheter had been discontinued. He had one episode of explosive watery diarrhea this morning after rectal tube was discontinued. He otherwise wants to go home but refuses to have self-catheterization or a Busch catheter to be placed. At this time he has had no fever, no chills, no shortness of breath, chest pain, pressure, or tightness, tolerating his thickened liquids and pureed diet. Daughter has been made aware that patient is refusing intermittent catheterization as well as Busch catheter placement for his urine retention and will need to be monitored for the next 6-12 hours for urine output. He has not voided at all today. PHYSICAL EXAMINATION: Temperature 97.4, pulse 69, respiratory rate 17, blood pressure 138/70, 93% on room air. GENERAL: Awake, alert, oriented to person, place, and time, answering questions appropriately. No pallor, icterus, jaundice, or use of respiratory accessory muscles. HEENT: Face is symmetric. Tongue is midline. Moist mucous membranes. HEART: S1, S2, sinus rhythm. ABDOMEN: Soft, nontender, nondistended. Normoactive bowel sounds. Erythematous scrotal area. LUNGS: Diminished. No wheezes, rales, or rhonchi. EXTREMITIES: Charcot foot. Multiple heel ulcers. No pitting edema. LABORATORY DATA/IMAGING STUDIES: Microbiology, intake and output, daily weights have been reviewed. ASSESSMENT: This is a 75-year-old male, admitted on December 18 with generalized weakness and prior history of recurrent cerebrovascular accident (CVA), pontine lacunar with chronic right-sided hemiparesis, small ischemic disease, peripheral vascular disease, diabetes, hypertension, dyslipidemia, chronic kidney disease, stage III, valgus deformity of the feet and Charcot joint, osteomyelitis, right talus with culture previously of Serratia, debridement of heel ulcers, admitted for the following issues. 1. Coronavirus-19 infection with coronavirus-induced diarrhea, colonic ileus, resolved after rectal tube. 2. Dehydration and hypernatremia, status post intravenous (IV) fluids. 3. Metabolic acidosis secondary to diarrhea, resolved. 4. Acute on chronic renal failure, resolved, back to baseline. 5. Urine retention, new. Refusing Busch catheter placement and intermittent catheterization. Still not voiding this morning. 6. Type 2 diabetes, uncontrolled. 7. History of recurrent cerebrovascular accident (CVA) with elevated INR due to coronavirus. Warfarin has been held. 8. History of seizures. 9. Hypertension. 10. Multiple lower extremity ulcers with history of valgus deformity and Charcot feet. 11. Gross hematuria, resolved status post Busch catheter. 12. Acute blood loss secondary to hematuria. No red blood cells (RBC) transfusion required. PLAN: Patient is medically stable. We appreciate the podiatry consult for the chronic ulcers. Outpatient followup with podiatry. Dressing changes and wound care per recommendations. Patient's urine retention has been evaluated after Busch catheter has been discontinued. At this time patient refusing Busch catheter and intermittent catheterization. He will need to be monitored to make sure he can urinate on his own. Discharge plans later today if he permits intermittent catheterization teaching or Busch catheter placement, or in the morning. He has been started on Flomax every night. MTDD
[2020-12-28] MEDS ORDERED: LEVEMIR (INSULIN DETEMIR) 1 UNITS/0.01ML SC SCH (21:00)
== END 2020-12-28 13:10 | disposition home or self-care (01) | DRG 167 ==
LOC: M ED 20:13 → M ED INP 12-18 02:14 → M 4MAIN 12-18 05:00
PROVIDERS: ADMIT Internal Medicine; ATTEND General Practice
PROC: 3E0333Z Introduction of Anti-inflammatory into Peripheral Vein, Percutaneous Approach (ICD-10-PCS; 2020-12-18)
PROC: XW033E5 Introduction of Remdesivir Anti-infective into Peripheral Vein, Percutaneous Approach, New Technology Group 5 (ICD-10-PCS; 2020-12-18)
PROC: 0JBQ0ZZ Excision of Right Foot Subcutaneous Tissue and Fascia, Open Approach (ICD-10-PCS; principal; 2020-12-27)
DX: U07.1 COVID-19 (principal); K56.7 Ileus, unspecified; N17.9 Acute kidney failure, unspecified; E87.1 Hypo-osmolality and hyponatremia; I69.354 Hemiplegia and hemiparesis following cerebral infarction affecting left non-dominant side; L97.418 Non-pressure chronic ulcer of right heel and midfoot with other specified severity; E87.2 Acidosis; D62 Acute posthemorrhagic anemia; A08.39 Other viral enteritis; E78.5 Hyperlipidemia, unspecified; E11.610 Type 2 diabetes mellitus with diabetic neuropathic arthropathy; I12.9 Hypertensive chronic kidney disease with stage 1 through stage 4 chronic kidney disease, or unspecified chronic kidney disease; R33.9 Retention of urine, unspecified; R31.0 Gross hematuria; E11.621 Type 2 diabetes mellitus with foot ulcer; E11.51 Type 2 diabetes mellitus with diabetic peripheral angiopathy without gangrene; N18.30 Chronic kidney disease, stage 3 unspecified; I35.8 Other nonrheumatic aortic valve disorders; E87.6 Hypokalemia; I69.398 Other sequelae of cerebral infarction; R56.9 Unspecified convulsions; Z79.82 Long term (current) use of aspirin; Z79.4 Long term (current) use of insulin; Z79.899 Other long term (current) drug therapy; Z79.01 Long term (current) use of anticoagulants

== ENCOUNTER → 2020-12-30 | Outpatient (CLI) | payer MEDICARE ==
[~2020-12-30] MED LIST changes: +ASPI-161 PO; +ATOR40TA75 PO; +BACL10TA2 PO; +C 50TAB PO; +FERR1TAB8 PO; +FLUO20CA22 PO; +INSUHUMDS SC; +IRON65TA2 PO; +KEPP1TAB PO; +LANTINJ4 SC; +LEVE1INJ5 SC; +LISI10TA22 PO; +METF500T13 PO; +METO25TA4 PO; +POTA10TA17 PO; +POTA1TAB23 PO; +PRED10TA2 PO; +SODI325T9 PO; +SODI650T PO; +THERTAB68 PO; +VITA50005 PO; +VITATAB73 PO; +VITMTA PO; +WARF4TAB51 PO; +WARF4TAB52 PO
[2020-12-30 12:09] LABS: INR 1.9; PROTHROMBIN TIME 22.2 SECONDS (12.5-14.3)
[2020-12-30 13:15] LABS: CALCIUM LEVEL 9.1 MG/DL (8.8-10.2); CREATININE FOR GFR 1.81 MG/DL (0.70-1.30); GLOMERULAR FILTRATION RATE 39.2 (>42); POTASSIUM SERUM 3.3 MEQ/L (3.5-5.1)
== END ==
LOC: M WUC 09:39
PROVIDERS: ATTEND Physician Assistant Medical
DX: I63.9 Cerebral infarction, unspecified (principal); Z51.81 Encounter for therapeutic drug level monitoring; E87.6 Hypokalemia

== ENCOUNTER → 2021-01-01 | Outpatient (REF) | payer MEDICARE ==
[2021-01-01 13:26] LABS: BASO % 0.1 % (0.0-1.0); EOS % 0.1 % (0.0-3.0); HEMOGLOBIN 11.6 g/dl (13.5-17.5); LYMPH # 0.7 10^3/uL (1.5-5.0); LYMPH % 4.9 % (24.0-44.0); MEAN CORPUSCULAR HEMOGLOBIN 29.4 pg (27.0-33.0); MEAN CORPUSCULAR HGB CONC 31.4 g/dl (32.0-36.5); MEAN CORPUSCULAR VOLUME 93.7 fl (80.0-96.0); MONO # 0.6 10^3/uL (0.0-0.8); MONO % 4.2 % (2.0-8.0); NEUTROPHILS # 13.5 10^3/uL (1.5-8.5); NEUTROPHILS % 89.2 % (36.0-66.0); PLATELET COUNT, AUTOMATED 227 10^3/uL (150-450); RED BLOOD COUNT 3.95 10^6/uL (4.30-6.10); WHITE BLOOD COUNT 15.1 10^3/uL (4.0-10.0)
[2021-01-01 13:57] LABS: ALBUMIN 2.6 GM/DL (3.2-5.2); BILIRUBIN,TOTAL 0.4 MG/DL (0.2-1.0); CALCIUM LEVEL 9.4 MG/DL (8.8-10.2); CREATININE FOR GFR 1.5 MG/DL (0.70-1.30); GLOMERULAR FILTRATION RATE 48.7 (>42); MAGNESIUM LEVEL 1.9 MG/DL (1.8-2.4); POTASSIUM SERUM 3.1 MEQ/L (3.5-5.1); TOTAL PROTEIN 5.8 GM/DL (6.4-8.2)
== END ==
LOC: M SFHCPLAZ 10:55
PROVIDERS: ATTEND Physician Assistant Medical
DX: I12.9 Hypertensive chronic kidney disease with stage 1 through stage 4 chronic kidney disease, or unspecified chronic kidney disease (principal); N18.32 Chronic kidney disease, stage 3b; U07.1 COVID-19; D64.9 Anemia, unspecified; I63.9 Cerebral infarction, unspecified

== ENCOUNTER → 2021-01-28 | Outpatient (CLI) | payer MEDICARE ==
[2021-01-28 10:28] LABS: PROTHROMBIN TIME 71.7 SECONDS (12.5-14.3)
[2021-01-28 10:47] LABS: INR 8.42
[2021-01-28 10:58] LABS: CALCIUM LEVEL 10.3 MG/DL (8.8-10.2); CREATININE FOR GFR 2.35 MG/DL (0.70-1.30)
== END ==
LOC: M WUC 08:30
PROVIDERS: ATTEND Physician Assistant Medical
DX: Z51.81 Encounter for therapeutic drug level monitoring (principal); E87.6 Hypokalemia

== ENCOUNTER 2021-02-01 01:30 | Inpatient (IN) | payer MEDICARE ==
[2021-02-01] VITALS (14 sets, daily range): BP systolic 113–156; BP diastolic 54–85
[~2021-02-01] VITALS: Ht 175.3 cm; Wt 75.4 kg
[2021-02-01 01:54] LABS: BASO # 0.1 10^3/uL (0.0-0.2); BASO % 0.7 % (0.0-1.0); EOS # 0.2 10^3/uL (0.0-0.5); EOS % 1.2 % (0.0-3.0); HEMATOCRIT 26.7 % (42.0-52.0); HEMOGLOBIN 7.7 g/dl (13.5-17.5); LYMPH # 2.3 10^3/uL (1.5-5.0); LYMPH % 17.6 % (24.0-44.0); MEAN CORPUSCULAR HEMOGLOBIN 29.1 pg (27.0-33.0); MEAN CORPUSCULAR HGB CONC 28.8 g/dl (32.0-36.5); MEAN CORPUSCULAR VOLUME 100.8 fl (80.0-96.0); MONO % 7.9 % (2.0-8.0); NEUTROPHILS # 9.1 10^3/uL (1.5-8.5); NEUTROPHILS % 70.3 % (36.0-66.0); PLATELET COUNT, AUTOMATED 509 10^3/uL (150-450); RED BLOOD COUNT 2.65 10^6/uL (4.30-6.10)
[2021-02-01] MEDS ORDERED: LORazepam 2 MG TAB PO ONE (02:05)
[2021-02-01 02:33] LABS: ALBUMIN 2.3 GM/DL (3.2-5.2); ALT/SGPT 21 U/L (12-78); AMPHETAMINES LEVEL URINE NEGATIVE (NEGATIVE); BARBITURATES URINE NEGATIVE (NEGATIVE); BENZODIAZEPINES URINE NEGATIVE (NEGATIVE); BILIRUBIN,DIRECT < 0.1 MG/DL (0.0-0.2); BILIRUBIN,TOTAL 0.3 MG/DL (0.2-1.0); BLOOD UREA NITROGEN 66 MG/DL (7-18); CALCIUM LEVEL 9.9 MG/DL (8.8-10.2); CANNABINOIDS URINE NEGATIVE (NEGATIVE); CARBON DIOXIDE LEVEL 13 MEQ/L (21-32); CHLORIDE LEVEL 125 MEQ/L (98-107); CK-MB VALUE MASS 2.7 NG/ML (<3.6); COCAINE METABOLITE URINE NEGATIVE (NEGATIVE); CPK CREATINE PHOSPHOKINASE 259 U/L (39-308); CREATININE FOR GFR 2.72 MG/DL (0.70-1.30); GLOMERULAR FILTRATION RATE 24.5 (>42); GLUCOSE, FASTING 125 MG/DL (70-100); MB/CK RELATIVE INDEX 1.04 (< OR =4); METHADONE URINE NEGATIVE (NEGATIVE); OPIATES URINE NEGATIVE (NEGATIVE); PHENCYCLIDINE URINE NEGATIVE (NEGATIVE); POTASSIUM SERUM 3.6 MEQ/L (3.5-5.1); SODIUM LEVEL 148 MEQ/L (136-145); TOTAL PROTEIN 6.8 GM/DL (6.4-8.2); TROPONIN I < 0.02 NG/ML (< 0.10)
[2021-02-01 02:50] LABS: INR 2.83; PROTHROMBIN TIME 30.4 SECONDS (12.5-14.3)
[2021-02-01 02:51] LABS: PARTIAL THROMBOPLASTIN TIME 71.2 SECONDS (24.2-38.5)
[2021-02-01 03:35] LABS: RSV AMPLIFICATION NEGATIVE (NEGATIVE)
--- NOTE | 2021-02-01 04:00 | REPVR ---
PROCEDURE INFORMATION: Exam: CT Head without Contrast Exam date and time: 02/01/21 (2:22am) Age: 75 years old Clinical indication: Altered mental status / memory loss TECHNIQUE: Imaging protocol: Computed tomography of the head without contrast. Radiation optimization: All CT scans at this facility use at least one of these dose optimization techniques: automated exposure control; mA and/or kV adjustment per patient size (includes targeted exams where dose is matched to clinical indication); or iterative reconstruction. COMPARISON: No relevant prior studies available FINDINGS: Brain: No acute hemorrhage. No cerebral edema. No mass effect. Age-related atrophic changes are noted. Periventricular and subcortical areas of low attenuation, compatible with chronic small vessel microischemic changes. A few small lacunar infarcts. Cerebral ventricles: No ventriculomegaly. Paranasal sinuses: Visualized sinuses are unremarkable. No air-fluid levels. Mastoid air cells: Visualized mastoid air cells are well aerated. Bones/joints: Unremarkable. No acute fracture. Soft tissues: Unremarkable. IMPRESSION: No acute intracranial pathology is appreciated. Chronic atrophic and microischemic changes. Electronically signed by: Serene Rizvi On 02/01/2021 03:59:32 AM
[2021-02-01] MEDS ORDERED: cefTRIAXone SOD 1 GM in D5W MINI-BAG PLUS 50 ML IV ONE (04:15)
[2021-02-01] MEDS ORDERED: SODI650T PO (04:27)
[2021-02-01] MEDS ORDERED: METF500T13 PO (04:27)
[2021-02-01] MEDS ORDERED: FLOM0.4C39 PO (04:27)
[2021-02-01] MEDS ORDERED: LANTINJ4 SC (04:27)
[2021-02-01] MEDS ORDERED: med rec comment (04:36)
[2021-02-01] MEDS ORDERED: MAALOX 30 ML SUSP *UDC PO PRN (05:20)
[2021-02-01] MEDS ORDERED: MOM 30ML SUSPENSION UDC PO PRN (05:20)
--- NOTE | 2021-02-01 05:23 | HPEPDOC ---
[facility] Medical History & Physical Date of Admission Feb 01, 2021 Date of Service: Feb 01, 2021 History and Physical CHIEF COMPLAINT: Syncope HISTORY OF PRESENT ILLNESS: 75-year-old male history of CVA with residual left-sided hemiparesis on warfarin, CKD, insulin-dependent diabetic who was recently admitted with Covid 19 comes to the ED with his daughter Yaz because of witnessed syncopal episode today. Tells me they asked her to go to the washroom and while seated on the toilet he proceeded to lean forward in loose consciousness for a few minutes she was standing next to him and was able to support him as he slumped over and he never fell or hit his head. She tells me that right now in the ED his mentation is back to his normal self and that usually speaks in a very soft quiet voice. Speaking to the patient he tells me he feels weak and tired but denies any other complaints he denies having chest pain or shortness of breath denies being in any kind of pain he also denies any trouble urinating and is unable to tell me if he has pain on urination. He doesn't appear to be confused he is alert to person and place but not to time which I am told is his baseline. Yaz tells me she doesn't think he's passed out like this before. She endorses that on Wednesday data blood work at their PCP office and INR was elevated to above 8 she held the warfarin Wednesday and and give it to him again yesterday. On he had a nosebleed which will be lasted less than a minute and then subsided on its own, during this episode she tells me a big gush of blood came out onto his shirt but it subsided with pressure and he has not had any bleeding since. She tells me she hasn't noticed any blood in his urine or stools. In the ED patient's blood pressure dropped to around 80/30 he was placed in Trendelenburg position and ordered 2 units of blood and given 1 dose of ceftriaxone for UTI. Blood cultures were collected. Stool guaiac was positive. 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 He is a former smoker. FAMILY HISTORY: Reviewed and none contributory to this admission ALLERGIES: Please see below. REVIEW OF SYSTEMS: 10 point review of systems complete all negative otherwise stated in HPI HOME MEDICATIONS: Please see below. PHYSICAL EXAMINATION: Constitutional: Appear weak, elderly, frail, sacrcopenic, drowsy but arousable and answers appropriately but very quietly, almost a whisper. in no apparent distress. No obvious active bleeding observed. In Trendelenburg position in the ED due to hypotension ENT: Sclera are clear. Mucosa is dry Respiratory: Lungs CTA bilaterally. No respiratory distress. Cardiovascular: Regular rate and rhythm, systolic murmur Gastrointestinal: Abdomen is soft, non distended, non tender, BS present. Musculoskeletal: No lower extremity edema. Neurologic: Left hemiparesis although able to move his left lower extremity although weaker right side Mental Status: A&O x2, person and place but not time. Skin: No obvious signs of bleeding no ecchymoses on the skin or obvious rashes. LABORATORY DATA: See below. IMAGING: See chart MICROBIOLOGY: Please see below. ASSESSMENT/PLAN 75-year-old male recently admitted with Covid has a history of recurrent CVA, diabetes, hypertension, COPD who presents due to syncope found to be severely anemic compared to 1 month ago and dehydrated with LYSSA on CKD. Sepsis likely from UTI. Admitted for further workup and medical management. # Sepsis: likely source is his UTI. Admit to PCU with tele. Hypotensive, leukocytosis, tachycardia. IVFs. Abx with Ceftrixone. Fu BCx. Fu UCx # UTI: as above, UA positive. IV ceftriaxone. Fu BCx. Fu UCx # Hypotension: likely from dehydration and well as in the setting of sepsis. IVFs. Orthostats when able to. # Syncope: didn't fall or hit his head. Likely multifactorial; hypotension, sepsis, anemia, possibly even vasovagal component while on toilet. Admit to PCU. Tele monitoring. IVFs. Treat underlying etiologies. # Lower GI bleeding: Stool guiac positive in ED. Hold warfarin. ok to continue ASA since no overt active bleed. getting 2 upRBC. Trend HH. IV protonix. Sucralfate TID. Consider consulting GI in the morning for EGD/c-scope once clinically appropriate. # Anemia: as above. possibly combination of acute and chronic blood loss anemia. Stool guiac positive in ED, also recent history of INR 8 with nose bleed 2 days prior to admission. Transfuse PRN hgn<8. Trend HH. # LYSSA on CKD: Cr above baseline at 2.72. Likely prerenal in the setting of dehydration and hypotension. Fu FeNa. IVFs NS. Trend BMP. Fu renal US. # Recent COVID19 infection: discharged early December. COVID returned positive on PCR, although he doesn't have symptoms of COVID. It's been known for COVID PCR testing to return positive sometimes for many weeks after resolution of acute infection. # Recurrent CVA: on warfarin, which will be held in the setting of anemia and suspected lower GI bleeding. serotherapeutic 2 days ago to INR 8. now INR 2.8. Resume ASA and statin. # PVD: ASA and stain # DM: ISS. Frequent Accu-Cheks. Hypoglycemic precautions. Continue Levemir home dose 16U qhs. # hx seizures post CVA: continue home keppra. # Depression: continue fluoxetine # DVT prophylaxis: SCDs/TEDs only A [facility] Hospitalist Vital Signs Vital Signs Date Time Temp Pulse Resp B/P (MAP) Pulse Ox O2 Delivery O2 Flow Rate FiO2 02/01/21 04:45 110 18 118/59 (78) 98 Room Air 02/01/21 03:45 98.0 Laboratory Data Labs 24H Laboratory Tests 2 02/01/21 01:47: Immature Granulocyte % (Auto) 2.3, Neutrophils (%) (Auto) 70.3H, Lymphocytes (%) (Auto) 17.6L, Monocytes (%) (Auto) 7.9, Eosinophils (%) (Auto) 1.2, Basophils (% ) (Auto) 0.7, Neutrophils # (Auto) 9.1H, Lymphocytes # (Auto) 2.3, Monocytes # (Auto) 1.0H, Eosinophils # (Auto) 0.2, Basophils # (Auto) 0.1, Nucleated Red Blood Cells % (auto) 0.7H, Prothrombin Time 30.4H, Prothromb Time International Ratio 2.83, Activated Partial Thromboplast Time 71.2H, Urine Color NAS, Urine Appearance CLOUDYH, Urine pH 7.0, Urine Specific Ch[place] 1.009, Urine Protein 2+H, Urine Glucose (UA) NEGATIVE, Urine Ketones NEGATIVE, Urine Blood 3+H, Urine Nitrite NEGATIVE, Urine Bilirubin NEGATIVE, Urine Urobilinogen 0.2, Urine Leukocyte Esterase 3+H, Urine WBC (Auto) TNTCH, Urine RBC (Auto) 91H, Urine Hyaline Casts (Auto) 0, Urine Bacteria (Auto) 2+H, Urine Squamous Epithelial Cells 0, Urine Sperm (Auto) , Anion Gap 10, Glomerular Filtration Rate 24.5L, Calcium Level 9.9, Total Bilirubin 0.3, Direct Bilirubin < 0.1, Aspartate Amino Transf (AST/SGOT) 19, Alanine Aminotransferase (ALT/SGPT) 21, Alkaline Phosphatase 70, Total Creatine Kinase 259, Creatine Kinase MB 2.7, Creatine Kinase MB Relative Index 1.04, Troponin I < 0.02, Total Protein 6.8, Albumin 2.3L, Albumin/Globulin Ratio 0.5, Thyroid Stimulating Hormone (TSH) 3.190, Urine Opiates Screen NEGATIVE, Urine Methadone Screen NEGATIVE, Urine Barbiturates Screen NEGATIVE, Urine Phencyclidine Screen NEGATIVE, Urine Amphetamines Screen NEGATIVE, Urine Benzodiazepines Screen NEGATIVE, Urine Cocaine Metabolite Screen NEGATIVE, Urine Cannabinoids Screen NEGATIVE 02/01/21 02:49: Coronavirus (COVID-19)(PCR) POSITIVEA, Influenza Type A (RT-PCR) NEGATIVE, Influenza Type B (RT-PCR) NEGATIVE, Respiratory Syncytial Virus (PCR) NEGATIVE CBC/BMP Laboratory Tests 02/01/21 01:47 Microbiology Microbiology 02/01/21 Blood Culture, Received Pending 02/01/21 Blood Culture, Received Pending 02/01/21 Urine Culture, Received Pending Home Medications Scheduled Ascorbic Acid (Vitamin C) 500 Mg Tablet, 500 MG PO DAILY Aspirin (Aspirin EC) 81 Mg Tablet.dr, 81 MG PO DAILY Atorvastatin Calcium (Atorvastatin Calcium) 40 Mg Tablet, 40 MG PO QHS Baclofen (Baclofen) 10 Mg Tablet, 10 MG PO TID Ergocalciferol (Vitamin D2) (Vitamin D2) 50,000 Units Cap, 50,000 UNITS PO Q2WK EVERY OTHER WEDNESDAY Ferrous Sulfate (Ferrous Sulfate) 325 Mg Tablet, 325 MG PO DAILY Fluoxetine Hcl (Fluoxetine HCl) 20 Mg Capsule, 20 MG PO DAILY Insulin Glargine,Hum.rec.anlog (Lantus Solostar) 100 Unit/1 Ml Insuln.pen, 16 UNITS SC QHS Insulin Human Lispro (Humalog) 100 Unit/1 Ml Vial, 1 DOSE SC AC PER SLIDING SCALE Levetiracetam (Keppra) 500 Mg Tablet, 500 MG PO BID Lisinopril (Lisinopril) 10 Mg Tablet, 10 MG PO BID Metformin HCl (Metformin HCl) 500 Mg Tablet, 500 MG PO BID Metoprolol Tartrate (Metoprolol Tartrate) 25 Mg Tablet, 25 MG PO BID Multivitamins (Thera M Plus Tablet) 1 Each Tablet, 1 TAB PO DAILY Potassium Chloride (Potassium Chloride) 10 Meq Tab.er.prt, 10 MEQ PO WM Sodium Bicarbonate (Sodium Bicarbonate) 650 Mg Tablet, 650 MG PO BID Tamsulosin HCl (Flomax) 0.4 Mg Capsule, 0.4 MG PO DAILY Vitamin B Complex (Vitamin B Complex) 1 Each Tablet, 1 TAB PO DAILY Warfarin Sodium (Warfarin Sodium) 1 Mg Tablet, 1 MG PO 5XW WEDNESDAY, WEDNESDAY, WEDNESDAY, WEDNESDAY AND WEDNESDAY AT 1700 Warfarin Sodium (Warfarin Sodium) 2 Mg Tablet, 2 MG PO 2XWK WEDNESDAY AND WEDNESDAY AT 1700 Miscellaneous Medications [med rec comment ] unable to verify with pt use last office visit on 01/14/21 Allergies Coded Allergies: No Known Allergies (Unverified , 12/17/20) A-FIB/CHADSVASC A-FIB History Current/History of A-Fib/PAF?: No HANNA LOPEZ MD Feb 01, 2021 05:23
[2021-02-01] MEDS ORDERED: NS 1,000 ML IV SCH (05:45)
[2021-02-01] MEDS ORDERED: GLUCAGON INJ 1MG VIAL SC PRN (06:00)
[2021-02-01] MEDS ORDERED: GLUCOSE 4GM CHEW TABLET PO PRN (06:00)
[2021-02-01] MEDS: SUCRALFATE 1 GM TAB PO SCH ×3 (06:00→20:23)
[2021-02-01] MEDS ORDERED: DEXTROSE 50% 50 ML SYRINGE IV PRN (06:00)
[2021-02-01] MEDS: PANTOPRAZOLE 40MG VIAL (C9113 PER 1) IV SCH ×2 (06:57→18:45)
[2021-02-01] MEDS: HumaLOG INSULIN (NovoLOG) PER UNIT SC SCH ×4 (07:30→20:22)
--- NOTE | 2021-02-01 07:45 | ECGEPIP ---
[facility] - ED Test Date: 2021-02-01 Pat Name: LUISA NANCE Department: Room: [place] [address] Gender: Male [employer]: : [id number] Requested By: BUCK Ramos Order Number: [id number] Reading MD: González Gonzalez Measurements Intervals [place] Rate: 116 P: 8 ME: 166 QRS: -1 QRSD: 80 T: 14 QT: 334 QTc: 464 Interpretive Statements Sinus tachycardia Inferior infarct , age undetermined POOR R WAVE PROGRESSION NO PRIORS FOR COMPARISON Electronically Signed on 02-01-2021 7:45:25 EDT by González Gonzalez
--- NOTE | 2021-02-01 08:46 | REP ---
INDICATION: LYSSA COMPARISON: 12/18/2020 TECHNIQUE: Real time bates scale ultrasound examination using curved array transducer. FINDINGS: Bilateral kidneys are normal in contour, size, echogenicity, and reniform shape. No hydronephrosis, nephrolithiasis, cystic or renal mass lesion. Right kidney measures 10.7 x 6.0 x 6.1 cm. Left kidney measures 10.7 x 5.0 x 6.7 cm. Bladder demonstrates layering debris without further abnormality by ultrasound. IMPRESSION: 1. Normal appearance of the kidneys without hydronephrosis. <Electronically signed by Cl Taveras > 02/01/21 0801
[2021-02-01] MEDS: FLUoxetine 20 MG CAP PO SCH ×2 (09:00→09:57)
[2021-02-01] MEDS: FERROUS SULFATE 325MG TAB PO SCH ×2 (09:00→09:56)
[2021-02-01] MEDS: TAMSULOSIN 0.4 MG CAP PO SCH ×2 (09:00→09:57)
[2021-02-01] MEDS ORDERED: SODIUM BICARBONATE 325 MG TAB PO SCH (09:00)
[2021-02-01] MEDS: DOCUSATE SODIUM 100MG CAPSULE PO SCH ×3 (09:00→20:22)
[2021-02-01] MEDS: ASPIRIN 81MG ENTERIC TABLET PO SCH ×2 (09:00→09:56)
[2021-02-01 09:36] LABS: ABG BASE EXCESS -13.7 (-2.0-2.0); ABG HCO3 12.5 MEQ/L (22.0-26.0); ABG O2 SATURATION 96.8 % (95.0-99.0); ABG PARTIAL PRESSURE O2 94.6 mmHg (75.0-100.0); ABG STANDARD HCO3 13.7 MEQ/L (22.0-26.0); ABG TOTAL CO2 13.4 MEQ/L (23.0-31.0); ABG pH (ARTERIAL) 7.238 UNITS (7.350-7.450)
[2021-02-01] MEDS: levETIRAcetam 250MG TABLET (KEPPRA) PO SCH ×2 (09:57→20:22)
[2021-02-01] MEDS ORDERED: VANCOMYCIN HCL 750 MG, VIAL MATE ADAPTER 1 EACH in NS 250 ML IV SCH (10:00)
[2021-02-01 10:29] LABS: CREATININE,RANDOM URINE 72.6 MG/DL; POTASSIUM RANDOM URINE 5.9 MEQ/L
[2021-02-01 10:49] LABS: ALBUMIN 2.3 GM/DL (3.2-5.2); BILIRUBIN,TOTAL 0.4 MG/DL (0.2-1.0); CALCIUM LEVEL 9.8 MG/DL (8.8-10.2); CREATININE FOR GFR 2.6 MG/DL (0.70-1.30); GLOMERULAR FILTRATION RATE 25.8 (>42); POTASSIUM SERUM 3.6 MEQ/L (3.5-5.1); TOTAL PROTEIN 6.4 GM/DL (6.4-8.2)
[2021-02-01] MEDS ORDERED: VANCOMYCIN HCL 1,000 MG, VIAL MATE ADAPTER 1 EACH in NS 250 ML IV ONE (11:00)
--- NOTE | 2021-02-01 11:19 | IPNPDOC ---
Text Note Date of Service The patient was seen on 02/01/21. 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 Patient was in the washroom and while seated on the toilet he proceeded to lean forward and lost consciousness. Upon arrival to ER, mentation was noted to be back to baseline (speaking in a soft quiet voice, not oriented to time) He had initially reported weakness; but denies any other symptoms. Of note, they did report having blood work completed on Wednesday at her PCPs office. They were advised that the INR was elevated and told to stop warfarin for the next few days. Patient did have an episode of nosebleed on , which lasted several minutes but was self resolving. They denied any blood in urine and stool. In the ER, patient was hypotensive (80/30s) and was placed in a Trendelenburg position. He was given 1 unit of blood, ceftriaxone was started on IV fluids. Of note, his occult stool was positive in the emergency room. Patient was seen and examined at the bedside. This morning patient appears to be drowsy but able to answer some questions. He has reported some diarrhea recently. He denies any chest pain, shortness of breath or palpitations. Has not expressed any abdominal pain. Nursing staff has reported that patient has been having hematuria. He did have a smear of stool that does not appear to have any significant blood. Objective: Vitals (See below) General: Lying in bed, appears comfortable, drowsy but answers questions HEENT: NC, AT CVS: +S1S2 Lungs: Fair air entry b/l, no wheezing, rales or rhonchi Abdomen: Soft, ND, NT Extremities: - Edema, - Calf tenderness, Right foot with dressing in place (valgus deformity noted) Imaging: CT head 02/01: No acute intracranial pathology is appreciated. Chronic atrophic and domi roischemic changes. Renal US 02/01: 1. Normal appearance of the kidneys without hydronephrosis. Assessment and plan: Sepsis - possibly 2/2 UTI, possibly 2/2 R foot ulcer - Patient remains afebrile / blood pressures have improved - Leukocytosis with neutrophil predominance - No lactic acidosis - Blood culture 02/01: Pending - UA abnormal; Urine culture 02/01: Pending - Will check ESR / CRP; will order XR of R foot later today - Will DC Ceftriaxone; Will start Vancomycin and Zosyn s/p Hypotension Metabolic acidosis - Patient reports a history of diarrhea in his recent past - No documented diarrhea currently - Patient's bicarbonate has been severely depressed - Corrected AG for albumin of 14 - Delta / Delta of < 0.4 ... possibly indicated diarrhea - Will check ABG / Urine anion gap / Stat repeat of labs - Will consult nephrology for further assistance Syncope - likely 2/2 multifactorial etiology - Hypotension / Infection / Anemia / Vasovagal event - Will c/w telemetry monitoring - Will get ECHO Macrocytic anemia - possibly 2/2 acute blood loss 2/2 GI bleed, possibly 2/2 hematuria, possibly 2/2 recent nose bleed - Stool for occult blood positive in ER - s/p 1 unit PRBC - Will order additional unit PRBC - Will check Iron panel / B12 / Folate / Reticulocyte count - Coumadin on hold - c/w Protonix IV and Carafate Thrombocytosis - possibly 2/2 sepsis, possibly 2/2 anemia (SANYA) - Will need to have iron panel checked (prior to transfusions) LYSSA on CKD3 - Cr baseline of 1.3-1.6; Cr on admission of 2.7 - Slight improvement noted - Will check urine electrolytes - Nephrology consulted for assistance Hypernatremia - Will check osmolality - Will check urine electrolytes / urine osmolality COVID 19 - Dx 12/17/2020 - Asymptomatic Recurrent CVA - c/w Statin - Coumadin on hold (re: Anemia) - Will hold ASA PVD - c/w Statin - Will hold ASA NIDDM2 - c/w ISS and Levmir Hx of Seizures - c/w Keppra Depression - c/w Fluoxetine GI prophylaxis - c/w Protonix / Carafate (re: Positive stool for occult / Anemia) DVT prophylaxis - c/w TEDs/Sequentials Contact: - Daughter Yaz; Disposition: - Consulted nephrology - Awaiting clinical improvement VS,Dieudonne, I+O VS, Fishbone, I+O Laboratory Tests 02/01/21 01:47 Vital Signs Date Time Temp Pulse Resp B/P (MAP) Pulse Ox O2 Delivery O2 Flow Rate FiO2 02/01/21 07:11 97.7 91 16 123/70 98 Room Air I&O- Last 24 Hours up to 6 AM 02/01/21 06:00 Intake Total 50 ml Output Total 200 ml Balance -150 ml JUANITO RODRIGUEZ MD Feb 01, 2021 11:19
[2021-02-01 11:37] LABS: FERRITIN 219 NG/ML (26-388); IRON (FE) 27 UG/DL (65-175); PERCENT SATURATION 13.3 % (19.7-50.0); TOTAL IRON BINDING CAPACITY 203 UG/DL (250-450)
--- NOTE | 2021-02-01 12:53 | CR ---
CONSULTATION DATE: 02/01/2021 REQUESTING PHYSICIAN: Dinesh Franco MD CONSULTING PHYSICIAN: Cassia Livingston M.D. REASON FOR CONSULTATION: Management of acute renal failure CHIEF COMPLAINT: The patient was brought to the hospital with syncope. NOTE: History was obtained from patient's chart and from medical team. The patient himself is a very poor historian. HISTORY OF PRESENT ILLNESS: Hero Monreal is a 75-year-old male with past medical history of CVA with left-sided hemiparesis, insulin dependent diabetic, peripheral vascular disease, chronic kidney disease, stage 3 with a baseline creatinine of around 1.4 as per previous records, previous history of COVID-19 infection. He was brought to the emergency room after syncope. In the emergency room, the patient was hypotensive with systolic blood pressure in the 80s. He was given two units of blood and IV antibiotic. His stool guaiac was also positive. He was admitted under the hospitalist service with sepsis and hypotension. Creatinine on arrival was 2.7. The patient was also acidotic with a serum bicarb of 13 and pH on ABG was 7.23. Nephrology service was called for further help in the management of this patient. I saw and evaluated the patient today morning at the bedside. He was getting IV normal saline, IV fluid. He had already gotten the Busch catheter placed by the time I saw him. I was told by the nursing staff that patient was having difficulty with urination. When they placed the Busch, the urine was very cloudy. PAST MEDICAL HISTORY: 1. History of recurrent CVA, residual left-sided weakness. 2. Insulin dependent diabetes. 3. Peripheral vascular disease. 4. Hypertension. 5. Hyperlipidemia. 6. Chronic kidney disease, stage 3, baseline creatinine 1.3 to 1.4. 7. COVID-19 infection in November of this year. 8. Deformity of the right foot. PAST SURGICAL HISTORY: Debridement of the heel ulcers. ALLERGIES: No known drug allergies. FAMILY HISTORY: No significant family history of end-stage renal disease requiring hemodialysis. SOCIAL HISTORY: The patient lives at home. As reported by patient, he does not work. REVIEW OF SYSTEMS: I was unable to do a reliable review of systems on the patient. He is awake but does not answer much questions. He is not in any respiratory distress at this time. PHYSICAL EXAMINATION: GENERAL: The patient is awake and oriented x1, lying in bed. VITAL SIGNS: Temperature is 96.4 degrees Fahrenheit, blood pressure 113/61, pulse is 97, respiratory rate of 16, saturating 95% on room air. The patient is tachycardic on arrival with a pulse of 118 and he also had episode of hypotension in the emergency room. Intake and outpatient so far recorded urine output as 200 mL. HEAD AND NECK: Extraocular muscles are intact. Pupils are equally round and reactive to light. Mucous membranes are moist. Neck is supple. There is no JVD. CARDIOVASCULAR: S1, S2, regular rate. EXTREMITIES: No edema of the bilateral lower extremities. RESPIRATORY: Chest is clear to auscultation bilaterally. Bilateral equal air entry. No rales or rhonchi. ABDOMEN: Soft, positive bowel sounds, nontender, no organomegaly. GENITOURINARY: He has an indwelling Busch catheter. Urine in the bag is cloudy. MUSCULOSKELETAL: The patient has weakness of the left arm and he has a deformity of the right foot. It looks like he has a Charcot foot on the right side. NUCLEAR TEST TECHNICIAN: The patient is awake. He follows commands. He moves the right extremity and bilateral lower extremities and he has weakness of the left arm. LAB REVIEW: CBC showed a WBC of 13, hemoglobin 7.7, platelets of 509. INR is 2.8. Urinalysis showed it was very cloudy with 2+ protein, 3+ leukocyte esterase, too numerous to count WBCs. Urine osmolality was 320. Creatinine was 72.6. Sodium 143, potassium 5.9, chloride 55. Urine nitrogen 355. Urine anion gap was -6. pH on the ABG was 7.23. BMP done today morning showed sodium 151, potassium 3.6, chloride 127, bicarb 15, BUN 62, creatinine is 2.6. Osmolarity is 330. Albumin is 2.3. Microbiology cultures are pending. IMAGING: A renal ultrasound was done which showed normal appearance of the kidney and there was a layering debris in the bladder. HOME MEDICATIONS: 1. Vitamin C 500 mg p.o. daily. 2. Aspirin 81 mg daily. 3. Lipitor 40 mg q.h.s. 4. Baclofen 10 mg p.o. three times a day. 5. Vitamin D. 6. Iron tablets 325 mg p.o. daily. 7. Fluoxetine 200 mg p.o. daily. 8. Insulin Lantus 16 units daily. 9. Insulin Lispro sliding scale. 10. Keppra 500 mg p.o. twice a day. 11. Lisinopril 10 mg p.o. twice a day. 12. Metformin 500 mg p.o. twice a day. 13. Metoprolol 25 mg p.o. twice a day. 14. Multivitamin. 15. Potassium chloride 10 mEq with meals. 16. Sodium bicarbonate 650 mg p.o. twice a day. 17. Flomax 0.4 mg p.o. daily. 18. Vitamin B complex. 19. Warfarin 1 mg p.o. five days a week and 2 mg p.o. two days a week. CURRENT INPATIENT MEDICATIONS: The patient's medications were all reviewed by myself. 1. He was initially on ceftriaxone. He has currently been started on vancomycin and Zosyn. 2. He was getting sodium chloride 150 mL an hour IV fluid. I have stopped the sodium chloride because of hyperchloremic acidosis and I have started the patient on sodium bicarbonate drip, D5 with 100 mEq of bicarb at 120 mL an hour. 3. Aspirin 81 mg p.o. daily. 4. Lipitor 40 mg p.o. h.s. 5. I have started him on Bicitra 30 mL p.o. twice a day. 6. Colace 100 mg p.o. twice a day. 7. Iron tablets 325 mg p.o. daily. 8. Fluoxetine 20 mg p.o. daily. 9. Insulin Lispro sliding scale. 10. Keppra 500 mg p.o. twice a day. 11. Ativan p.r.n. 12. Milk of Magnesia p.r.n. 13. Protonix 40 mg IV q.12. 14. I have stopped his oral sodium bicarbonate. 15. Carafate 1 gm p.o. q.8. 16. Flomax 0.4 mg p.o. daily. ASSESSMENT AND PLAN: 1. Acute renal failure. It is secondary to dehydration, volume depletion, urinary tract infection. He is getting IV fluid hydration with saline but because of hyperchloremic acidosis, his saline is being stopped and he has been started on bicarb containing fluid and he has gotten Busch catheter placed for urine output monitoring. 2. Urinary tract infection. The patient has a lot of debris in the urine, large leukocyte esterase, too numerous to count WBC. Cultures are pending. Empirically, he is currently getting IV Zosyn and vancomycin which should cover UTI. 3. Sepsis secondary to urinary tract infection. As he came in with hypotension, tachycardia, evidence of infection, leukocytosis, he is getting IV antibiotics. Blood pressure is better now. 4. Normal anion gap metabolic acidosis. The patient gets sodium bicarbonate as outpatient as well. He was on lisinopril and metformin which are on hold at this time. There is a possibility of renal tubular acidosis. However, urine anion gap done at this time is negative which points towards either urinary loss of bicarb or chronic diarrhea or urinary tract infection can also alter the urine anion gap if the patient has an infection with ammonia producing organisms. It will need to be repeated once his infection gets better. However, at this time the patient needs IV bicarb. Oral bicarbonate has been stopped and he has been started on Bicitra. 5. Hypernatremia. It is secondary to use of normal saline and dehydration. Sodium is getting worse as mentioned above. IV fluids have been changed to dextrose with sodium bicarbonate. 6. Anemia with guaiac positive stools. The patient is going to get two units of PRBC transfusion. His Coumadin is on hold. 7. Diabetes mellitus type 2, insulin dependent. Continue insulin sliding scale and Levemir. A wide use of metformin at this time. That can worsen renal failure and acidosis. Thank you for involving me in the care of this patient. I shall be happy to follow the patient along with you tomorrow morning.
[2021-02-01] MEDS: SODIUM BICARBONATE 100 MEQ in D5W 1,000 ML IV SCH ×2 (13:49→22:17)
[2021-02-01] MEDS: PIPERACILLIN/TAZOBACTAM SOD 3.375 GM in D5W MINI-BAG PLUS 50 ML IV SCH ×2 (13:49→18:45)
[2021-02-01] MEDS: BICITRA 30ML SOLN UDC PO SCH ×2 (13:57→20:22)
[2021-02-01 14:26] LABS: BASO # 0.1 10^3/uL (0.0-0.2); BASO % 0.8 % (0.0-1.0); EOS # 0.1 10^3/uL (0.0-0.5); EOS % 0.9 % (0.0-3.0); LYMPH # 2.2 10^3/uL (1.5-5.0); LYMPH % 17.1 % (24.0-44.0); MEAN CORPUSCULAR HEMOGLOBIN 28.9 pg (27.0-33.0); MEAN CORPUSCULAR VOLUME 96.3 fl (80.0-96.0); MONO # 1.1 10^3/uL (0.0-0.8); MONO % 8.3 % (2.0-8.0); NEUTROPHILS # 9.2 10^3/uL (1.5-8.5); PLATELET COUNT, AUTOMATED 417 10^3/uL (150-450); RED BLOOD COUNT 3.53 10^6/uL (4.30-6.10); WHITE BLOOD COUNT 12.9 10^3/uL (4.0-10.0)
[2021-02-01 14:29] LABS: HEMOGLOBIN 10.2 g/dl (13.5-17.5)
[2021-02-01 14:47] LABS: ERYTHROCYTE SEDIMENTATION RATE > 140 mm/hr (0-20)
[2021-02-01 15:06] LABS: ALBUMIN 2.3 GM/DL (3.2-5.2); ALT/SGPT 18 U/L (12-78); BILIRUBIN,TOTAL 0.5 MG/DL (0.2-1.0); BLOOD UREA NITROGEN 63 MG/DL (7-18); C REACTIVE PROTEIN QUANTITATIV 5.05 MG/DL (0.00-0.30); CALCIUM LEVEL 9.8 MG/DL (8.8-10.2); CARBON DIOXIDE LEVEL 14 MEQ/L (21-32); CHLORIDE LEVEL 126 MEQ/L (98-107); CK-MB VALUE MASS 3.3 NG/ML (<3.6); CPK CREATINE PHOSPHOKINASE 308 U/L (39-308); CREATININE FOR GFR 2.53 MG/DL (0.70-1.30); GLOMERULAR FILTRATION RATE 26.6 (>42); GLUCOSE, FASTING 78 MG/DL (70-100); MAGNESIUM LEVEL 2.4 MG/DL (1.8-2.4); MB/CK RELATIVE INDEX 1.07 (< OR =4); POTASSIUM SERUM 3.5 MEQ/L (3.5-5.1); SODIUM LEVEL 150 MEQ/L (136-145); TOTAL PROTEIN 6.3 GM/DL (6.4-8.2); TROPONIN I < 0.02 NG/ML (< 0.10)
[2021-02-01 18:39] LABS: CREATININE FOR GFR 2.38 MG/DL (0.70-1.30); GLOMERULAR FILTRATION RATE 28.6 (>42); POTASSIUM SERUM 3.2 MEQ/L (3.5-5.1)
[2021-02-01] MEDS: ATORVASTATIN 20 MG TAB PO SCH (20:22)
[2021-02-01] MEDS: LEVEMIR (INSULIN DETEMIR) 1 UNITS/0.01ML SC SCH (20:23)
[2021-02-01 20:27] LABS: ABG BASE EXCESS -11.2 (-2.0-2.0); ABG O2 SATURATION 98.6 % (95.0-99.0); ABG PARTIAL PRESSURE O2 131.7 mmHg (75.0-100.0); ABG STANDARD HCO3 15.5 MEQ/L (22.0-26.0); ABG TOTAL CO2 14.9 MEQ/L (23.0-31.0); ABG pH (ARTERIAL) 7.302 UNITS (7.350-7.450)
--- NOTE | 2021-02-01 20:30 | IPNPDOC ---
Text Note Date of Service The patient was seen on 02/01/21. NOTE Patient is lethargic and nurse called concerning his mentation to receive oral m edications as well as patient is NPO. In reviewing patients chart majority of his medications are administered through his peripheral IV line with the exception of Atorvastatin and Colace which I ordered to be held tonight. He was started on Sodium Bicarbonate drip due to his morning following the results of his ABG revealing low pH 7.23,pCO2 which correlates with metabolic acidosis, which could be the causative agent for lethargy vs toxic level anti-epileptic medication (Keppra)m or becoming septic, ordered stat Lactic Acid, and Chest x- ray.Labs ordered as I continue monitoring patient throughout the night. 923 laboratory results show WBC 12.9, H&H increased to 10.2/34 (from 7.2), increased immature RBC with Reticulocyte count of 126.0, ESR >140, Percent retic count is elevated at 4.2. 1410 cmp: CRP 5.05, LFTs normal, CK-MB 3.3 with CK 308. 1759- BMP: Sodium 151, K 3.2, CO2 16, CL 127,bun/creat 58/2.38 (improving), eGFR 28.6 (improving). His morning ABG (923) lab correlates with Metabolic Alkalosis with pH 7.238, pCO2 30, pO2 94.6, Bicarb 12.5 with O2 saturation of 96.8. 2024 lab resulted: poc glucose (@2032) 139 and fasting glucose (lab) 112. Lactic acid 0.9, Keppra pending. ABG: pH 7.302, pCO2 29, pO2 131.7, Bicarb 14 and O2 saturation 98.6 unchanged. V/s 156/85 (map 108), temp 96.3, HR 93, RR 17. 99% o2 on 2L n/c. Will continue to monitor patient and will wean down O2. VS,Fishbone, I+O VS, Fishbone, I+O Laboratory Tests 02/01/21 01:47 02/01/21 09:59 02/01/21 14:10 02/01/21 17:59 Vital Signs Date Time Temp Pulse Resp B/P (MAP) Pulse Ox O2 Delivery O2 Flow Rate FiO2 02/01/21 16:00 135/71 (92) Nasal Cannula 02/01/21 14:25 96.3 99 16 100 02/01/21 12:00 2.0 I&O- Last 24 Hours up to 6 AM 02/01/21 06:00 Intake Total 50 ml Output Total 200 ml Balance -150 ml DEBI HARVEY [facility] Feb 01, 2021 19:53
--- NOTE | 2021-02-01 20:51 | REPVR ---
PROCEDURE INFORMATION: Exam: XR Chest Exam date and time: 02/01/2021 8:30 PM Age: 75 years old Clinical indication: Other: Abnormal breath sounds, mentation change, covid; Additional info: Abdnormal breath sounds, mentation change, covid TECHNIQUE: Imaging protocol: XR of the chest. Views: 1 view. COMPARISON: CR PORTABLE CHEST X-RAY 12/18/2020 2:24 PM FINDINGS: Lungs: Minimal atelectasis at the left lung base. Pleural spaces: Unremarkable. No pleural effusion. No pneumothorax. Heart/Mediastinum: Unremarkable. No cardiomegaly. Bones/joints: Degenerative changes of the spine and bilateral shoulder joints. Intraperitoneal space: Markedly dilated presumed: In the upper abdomen. IMPRESSION: No acute abnormality. Markedly distended air-filled colon in the visualized upper abdomen. Electronically signed by: Navjot Maldonado On 02/01/2021 20:51:17 PM
[2021-02-02] VITALS: BP 134/68
[2021-02-02] MEDS: PIPERACILLIN/TAZOBACTAM SOD 3.375 GM in D5W MINI-BAG PLUS 50 ML IV SCH ×4 (01:06→18:06)
[2021-02-02 04:09] VITALS: BP 133/65
[2021-02-02 05:05] LABS: BASO # 0.1 10^3/uL (0.0-0.2); BASO % 0.7 % (0.0-1.0); EOS # 0.2 10^3/uL (0.0-0.5); EOS % 2.9 % (0.0-3.0); HEMATOCRIT 27.4 % (42.0-52.0); HEMOGLOBIN 8.5 g/dl (13.5-17.5); LYMPH # 1.3 10^3/uL (1.5-5.0); LYMPH % 15.3 % (24.0-44.0); MEAN CORPUSCULAR HEMOGLOBIN 28.6 pg (27.0-33.0); MEAN CORPUSCULAR VOLUME 92.3 fl (80.0-96.0); MONO # 0.7 10^3/uL (0.0-0.8); MONO % 7.9 % (2.0-8.0); NEUTROPHILS # 5.9 10^3/uL (1.5-8.5); NEUTROPHILS % 71.7 % (36.0-66.0); PLATELET COUNT, AUTOMATED 390 10^3/uL (150-450); RED BLOOD COUNT 2.97 10^6/uL (4.30-6.10); WHITE BLOOD COUNT 8.2 10^3/uL (4.0-10.0)
[2021-02-02 05:15] LABS: INR 4.16; PROTHROMBIN TIME 41.2 SECONDS (12.5-14.3)
[2021-02-02 05:41] LABS: ALBUMIN 1.9 GM/DL (3.2-5.2); BILIRUBIN,TOTAL 0.4 MG/DL (0.2-1.0); CALCIUM LEVEL 9.1 MG/DL (8.8-10.2); CREATININE FOR GFR 2.39 MG/DL (0.70-1.30); GLOMERULAR FILTRATION RATE 28.4 (>42); MAGNESIUM LEVEL 2.1 MG/DL (1.8-2.4); POTASSIUM SERUM 2.5 MEQ/L (3.5-5.1); TOTAL PROTEIN 6.2 GM/DL (6.4-8.2)
[2021-02-02] MEDS ORDERED: cefTRIAXone SOD 1 GM in D5W MINI-BAG PLUS 50 ML IV SCH (06:00)
[2021-02-02] MEDS: PANTOPRAZOLE 40MG VIAL (C9113 PER 1) IV SCH ×3 (06:00→18:06)
[2021-02-02] MEDS: SUCRALFATE 1 GM TAB PO SCH ×3 (06:00→22:40)
[2021-02-02] MEDS ORDERED: KCL 10MEQ/100ML SWI (KRUN) 10 MEQ in IV 1 EA IV ONE (06:25)
[2021-02-02] MEDS: KCL 10MEQ/100ML SWI (KRUN) 10 MEQ in IV 1 EA IV SCH ×2 (06:28→07:50)
[2021-02-02] MEDS ORDERED: POTASSIUM CHLORIDE 10 MEQ SR TABLET PO ONE ×3 (06:55→10:00)
[2021-02-02] MEDS: HumaLOG INSULIN (NovoLOG) PER UNIT SC SCH ×4 (07:58→22:48)
[2021-02-02 08:00] VITALS: BP 127/65
[2021-02-02] MEDS ORDERED: VANCOMYCIN HCL 1,000 MG, VIAL MATE ADAPTER 1 EACH in NS 250 ML IV SCH (08:00)
--- NOTE | 2021-02-02 09:11 | IPNPDOC ---
Text Note Date of Service The patient was seen on 02/02/21. 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 Patient was in the washroom and while seated on the toilet he proceeded to lean forward and lost consciousness. Upon arrival to ER, mentation was noted to be back to baseline (speaking in a soft quiet voice, not oriented to time) He had initially reported weakness; but denies any other symptoms. Of note, they did report having blood work completed on Wednesday at her PCPs office. They were advised that the INR was elevated and told to stop warfarin for the next few days. Patient did have an episode of nosebleed on , which lasted several minutes but was self resolving. They denied any blood in urine and stool. In the ER, patient was hypotensive (80/30s) and was placed in a Trendelenburg position. He was given 1 unit of blood, ceftriaxone was started on IV fluids. Of note, his occult stool was positive in the emergency room. Patient was seen and examined at the bedside. Patient is oriented to person / place / time. She denies any CP, SOB or palpitations. Denies any abdominal pain, N, V or diarrhea. Has Busch catheter in place. Objective: Vitals (See below) General: Laying in bed, not in any distress, awake / alert, oriented x3 HEENT: Normocephalic, atraumatic CVS: +S1S2 Lungs: There is fair air entry b/l, no wheezing / rhonchi or rales appreciated Abdomen: Soft, non-distended, non-tender Extremities: No evidence of edema, Right foot with valgus deformity noted (wound appears clean without evidence of infection) Imaging: CT head 02/01: No acute intracranial pathology is appreciated. Chronic atrophic and microischemic changes. Renal US 02/01: 1. Normal appearance of the kidneys without hydronephrosis. Assessment and plan: Sepsis - possibly 2/2 UTI, possibly 2/2 R foot ulcer - Patient remains afebrile / hemodynamically stable - s/p Leukocytosis - No lactic acidosis - Blood culture 02/01: 1 of 2 positive - Gram-positive cocci in clusters - UA abnormal; Urine culture 02/01: Pending - Elevated ESR / CRP - Will repeat blood cultures - c/w Vancomycin and Zosyn; s/p Cefdinir s/p Hypotension Metabolic acidosis - Patient reports a history of diarrhea in his recent past - No documented diarrhea currently - Patient's bicarbonate has been severely depressed; has been improving - Corrected AG for albumin of 14 on admission - Delta / Delta of < 0.4 on admission - Urine AG negative - c/w bicarbonate drip - Nephrology on consultation; we appreciate their input Syncope - likely 2/2 multifactorial etiology - Hypotension / Infection / Anemia / Vasovagal event - c/w telemetry monitoring - ECHO complete; report pending Macrocytic anemia - possibly 2/2 acute blood loss 2/2 GI bleed, possibly 2/2 hematuria, possibly 2/2 recent nose bleed - Stool for occult blood positive in ER - s/p 2 unit PRBC - Iron panel consistent with deficiency - B12 and folate are pending - Coumadin on hold - c/w Protonix IV and Carafate s/p Thrombocytosis - possibly 2/2 sepsis, possibly 2/2 anemia (SANYA) LYSSA on CKD3 - Cr baseline of 1.3-1.6; Cr on admission of 2.7 - Creatinine has improvement from admission but still elevated from baseline - FENA 1.0 - Nephrology on consultation; we appreciate their input Hypernatremia - Improving - c/w D5W with Bicarbonate - Nephrology on consultation; we appreciate their input COVID 19 - Dx 12/17/2020 - Asymptomatic Recurrent CVA - c/w Statin - Coumadin on hold (re: Anemia) - Will hold ASA PVD - c/w Statin - Will hold ASA NIDDM2 - c/w ISS and Levmir Hx of Seizures - c/w Keppra Depression - c/w Fluoxetine GI prophylaxis - c/w Protonix / Carafate (re: Positive stool for occult / Anemia) DVT prophylaxis - c/w TEDs/Sequentials Contact: - Daughter Yaz; Disposition: - Consulted nephrology - Awaiting clinical improvement VS,Dieudonne, I+O VS, Robert[place]one, I+O Laboratory Tests 02/01/21 09:59 02/01/21 14:10 02/01/21 17:59 02/02/21 04:30 Vital Signs Date Time Temp Pulse Resp B/P (MAP) Pulse Ox O2 Delivery O2 Flow Rate FiO2 02/02/21 08:00 98.7 94 18 127/65 (85) 97 Nasal Cannula 2.0 I&O- Last 24 Hours up to 6 AM 02/02/21 06:00 Intake Total 1751 ml Output Total 1400 ml Balance 351 ml JUANITO RODRIGUEZ MD Feb 02, 2021 09:11
--- NOTE | 2021-02-02 09:50 | ECHO ---
ECHOCARDIOGRAM DATE OF PROCEDURE: 02/01/2021 Age: 75 Gender: Male Height: Weight: REFERRING PHYSICIAN: Dinesh Franco M.D. INDICATION: Syncope and history of cerebrovascular accident (CVA). MEASUREMENTS: Left ventricle 3.6 cm Mitral E wave velocity 63 Mitral A wave 108 E prime lateral 6.6 FINDINGS: This is a very limited echocardiogram. Only partial visualization of the heart was possible. Left ventricle is normal size. It has probably normal or near normal contractility based on very limited views. I certainly cannot rule out even substantial wall motion abnormality. The left atrium appears grossly normal. Right-sided heart chambers and valves were not well seen. No pericardial effusion is noted, but even that could have been missed. Inferior vena cava was not seen. Aortic root, aortic arch, and abdominal aorta were not visualized. Doppler interrogation of the aortic valve reveals no insufficiency and mild gradient, peak gradient was 17 mmHg, the valve does appear sclerotic. Color Doppler imaging of the mitral valve reveals no obvious insufficiency. CONCLUSIONS: 1. Very limited echocardiogram with very poor acoustic windows. 2. Normal LV size with probably normal or near normal LV systolic function. Grade 1 diastolic dysfunction. 3. Prominent aortic sclerosis with likely mild aortic stenosis and no insufficiency. 4. Functionally competent mitral valve. 5. Inferior vena cava, right-sided chambers and valves were not seen.
[2021-02-02] MEDS: levETIRAcetam 250MG TABLET (KEPPRA) PO SCH ×2 (09:52→22:40)
[2021-02-02] MEDS: TAMSULOSIN 0.4 MG CAP PO SCH (10:00)
[2021-02-02] MEDS: BICITRA 30ML SOLN UDC PO SCH ×2 (10:04→22:41)
[2021-02-02] MEDS: FLUoxetine 20 MG CAP PO SCH (10:06)
[2021-02-02] MEDS: FERROUS SULFATE 325MG TAB PO SCH (10:06)
[2021-02-02] MEDS: DOCUSATE SODIUM 100MG CAPSULE PO SCH ×2 (10:06→22:41)
[2021-02-02 11:48] LABS: CALCIUM LEVEL 8.6 MG/DL (8.8-10.2); CREATININE FOR GFR 2.41 MG/DL (0.70-1.30); GLOMERULAR FILTRATION RATE 28.1 (>42); POTASSIUM SERUM 2.8 MEQ/L (3.5-5.1)
[2021-02-02 12:00] VITALS: BP 116/61
[2021-02-02] MEDS: SODIUM BICARBONATE 100 MEQ, POTASSIUM CHLORIDE INJ 40 MEQ in D5W 1,000 ML IV SCH ×2 (12:20→22:44)
[2021-02-02 15:24] LABS: CALCIUM LEVEL 8.1 MG/DL (8.8-10.2); CREATININE FOR GFR 2.23 MG/DL (0.70-1.30); GLOMERULAR FILTRATION RATE 30.7 (>42); POTASSIUM SERUM 3.2 MEQ/L (3.5-5.1)
[2021-02-02 16:00] VITALS: BP 127/61
--- NOTE | 2021-02-02 16:51 | IPN ---
NEPHROLOGY PROGRESS NOTE DATE: 02/02/2021 SUBJECTIVE: Patient was seen and examined at the bedside today morning. Patient is afebrile, hemodynamically stable. He continues to be on bicarbonate drip. The last 24 hour events were noted. Patient is slightly lethargic. Overnight, he has developed hypokalemia now. Hypernatremia and metabolic acidosis is getting better. OBJECTIVE: VITAL SIGNS: Temperature 98.7 degrees Fahrenheit, blood pressure 127/65, pulse 94, respiratory rate 18, saturating 97% on nasal cannula at 2 liters. INTAKE AND OUTPUT: Urine output recorded as 1250 mL yesterday and 350 mL so far today since overnight. PHYSICAL EXAMINATION: GENERAL: Patient is laying in bed, lethargic, answers few questions. . HEAD AND NECK EXAM: Extraocular muscles intact. Pupils equally round and reactive to light. Mucous membranes are moist. Neck is supple. There is no jugular venous distention (JVD). CARDIOVASCULAR: S1, S2. Regular rate. No edema of the bilateral lower extremities. RESPIRATORY: Mildly decreased breath sounds at the bases. Otherwise, no rales or rhonchi. ABDOMEN: Distended. Positive bowel sounds. Nontender. No organomegaly is noted. GENITOURINARY: He has an indwelling Busch catheter. MUSCULOSKELETAL: Right foot deformity is noted. 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 LABORATORY STUDIES: CBC showed WBC 8.2, hemoglobin 8.5, platelets 390. INR today is 4.1. Arterial blood gas (ABG) done yesterday at nighttime shows pH of 7.30. BMP done today morning showed sodium 149, potassium 2.5, chloride 121, bicarbonate 20, BUN 54, creatinine 2.3. Albumin 1.9. MICROBIOLOGY: One out of two blood cultures is growing gram-positive cocci in clusters. Urine culture is pending. IMAGING: Chest x-ray was done which showed mildly distended air-filled colon in the visualized upper abdomen. CURRENT INPATIENT MEDICATIONS: Patient's medications were all reviewed by myself. I have changed the intravenous (IV) fluid to D5W with sodium bicarbonate 100 mEq with 40 mEq of potassium. He already got two runs of IV potassium chloride (KCl). He continues to be on Zosyn and IV vancomycin. He continues to be on Bicitra 30 mL by mouth twice a day. I am going to stop his oral iron tablet. He got a dose of potassium chloride 40 mEq in the morning. No other significant change in the medications today as compared with yesterday. ASSESSMENT AND PLAN: 1. Acute renal failure. Patient is nonoliguric. He is responding to the IV fluid hydration. Creatinine is improving. Continue the bicarbonate containing IV fluids. 2. Urinary tract infection. Patient's final urine culture is pending. He continues to be on vancomycin and Zosyn. Leukocytosis is getting better. 3. Sepsis secondary to gram-positive cocci bacteremia. Patient's white cell count is improving. Blood pressures are better. He is getting gram-positive and gram-negative coverage. Final culture and sensitivity is pending. 4. High anion gap metabolic acidosis. It is secondary to acute renal failure and questionable gastrointestinal (GI) losses recently before coming to the hospital and possibly renal tubular acidosis. Patient's lisinopril and metformin are on hold. He is getting oral Bicitra and he is getting IV sodium bicarbonate as well. Bicarbonate level is improving. 5. Hypernatremia. Patient is getting D5W with sodium bicarbonate. Sodium level is slowly improving. 6. Anemia with coag-positive stools. Packed red blood cells (PRBC) transfusion is as per medical team. Coumadin is on hold. 7. Hypokalemia. Patient is getting oral and IV potassium. I have also added potassium to the IV fluids.
[2021-02-02 22:39] VITALS: BP 133/64
[2021-02-02] MEDS: ATORVASTATIN 20 MG TAB PO SCH (22:41)
[2021-02-02] MEDS: LEVEMIR (INSULIN DETEMIR) 1 UNITS/0.01ML SC SCH (22:48)
[2021-02-03 01:41] VITALS: BP 133/59
[2021-02-03] MEDS: PIPERACILLIN/TAZOBACTAM SOD 3.375 GM in D5W MINI-BAG PLUS 50 ML IV SCH ×2 (01:41→06:14)
[2021-02-03 04:00] VITALS: BP 128/60
[2021-02-03 05:39] LABS: BASO # 0.1 10^3/uL (0.0-0.2); BASO % 0.8 % (0.0-1.0); EOS # 0.3 10^3/uL (0.0-0.5); EOS % 3.5 % (0.0-3.0); HEMATOCRIT 26.4 % (42.0-52.0); HEMOGLOBIN 8.3 g/dl (13.5-17.5); LYMPH # 1.5 10^3/uL (1.5-5.0); LYMPH % 19.2 % (24.0-44.0); MEAN CORPUSCULAR HEMOGLOBIN 29.1 pg (27.0-33.0); MEAN CORPUSCULAR HGB CONC 31.4 g/dl (32.0-36.5); MEAN CORPUSCULAR VOLUME 92.6 fl (80.0-96.0); MONO # 0.6 10^3/uL (0.0-0.8); MONO % 7.7 % (2.0-8.0); NEUTROPHILS # 5.3 10^3/uL (1.5-8.5); NEUTROPHILS % 67.4 % (36.0-66.0); PLATELET COUNT, AUTOMATED 398 10^3/uL (150-450); RED BLOOD COUNT 2.85 10^6/uL (4.30-6.10); WHITE BLOOD COUNT 7.9 10^3/uL (4.0-10.0)
[2021-02-03 05:45] LABS: PROTHROMBIN TIME 66.2 SECONDS (12.5-14.3)
[2021-02-03 06:00] LABS: ALBUMIN 1.8 GM/DL (3.2-5.2); BILIRUBIN,TOTAL 0.6 MG/DL (0.2-1.0); CALCIUM LEVEL 8.2 MG/DL (8.8-10.2); CREATININE FOR GFR 2.15 MG/DL (0.70-1.30); GLOMERULAR FILTRATION RATE 32.1 (>42); MAGNESIUM LEVEL 1.9 MG/DL (1.8-2.4); POTASSIUM SERUM 2.8 MEQ/L (3.5-5.1); TOTAL PROTEIN 5.3 GM/DL (6.4-8.2)
[2021-02-03] MEDS: PANTOPRAZOLE 40MG VIAL (C9113 PER 1) IV SCH ×2 (06:13→18:15)
[2021-02-03] MEDS: SUCRALFATE 1 GM TAB PO SCH ×3 (06:13→21:05)
[2021-02-03 06:56] LABS: INR 7.6
[2021-02-03] MEDS ORDERED: POTASSIUM CHLORIDE 10% LIQ 20 MEQ/15 ML UDC PO ONE ×2 (07:00→12:00)
[2021-02-03 08:00] VITALS: BP 133/62
[2021-02-03] MEDS ORDERED: KCL 10MEQ/100ML SWI (KRUN) 10 MEQ in IV 1 EA IV SCH (08:00)
[2021-02-03] MEDS ORDERED: PHYTONADIONE 5 MG TAB PO ONE (08:30)
[2021-02-03] MEDS: HumaLOG INSULIN (NovoLOG) PER UNIT SC SCH ×4 (08:49→20:59)
[2021-02-03] MEDS: BICITRA 30ML SOLN UDC PO SCH ×2 (08:50→21:05)
[2021-02-03] MEDS: levETIRAcetam 250MG TABLET (KEPPRA) PO SCH ×2 (08:50→21:05)
[2021-02-03] MEDS: DOCUSATE SODIUM 100MG CAPSULE PO SCH (08:51)
[2021-02-03] MEDS: FLUoxetine 20 MG CAP PO SCH (08:51)
[2021-02-03] MEDS: TAMSULOSIN 0.4 MG CAP PO SCH (08:51)
[2021-02-03] MEDS ORDERED: POTASSIUM CHLORIDE 10 MEQ SR TABLET PO SCH (09:00)
--- NOTE | 2021-02-03 09:29 | IPNPDOC ---
Text Note Date of Service The patient was seen on 02/03/21. 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 Patient was in the washroom and while seated on the toilet he proceeded to lean forward and lost consciousness. Upon arrival to ER, mentation was noted to be back to baseline (speaking in a soft quiet voice, not oriented to time) He had initially reported weakness; but denies any other symptoms. Of note, they did report having blood work completed on Wednesday at her PCPs office. They were advised that the INR was elevated and told to stop warfarin for the next few days. Patient did have an episode of nosebleed on , which lasted several minutes but was self resolving. They denied any blood in urine and stool. In the ER, patient was hypotensive (80/30s) and was placed in a Trendelenburg position. He was given 1 unit of blood, ceftriaxone was started on IV fluids. Of note, his occult stool was positive in the emergency room. Patient was seen and examined at the bedside. Patient appears to be slightly more awake and alert. Denies any chest pain, shortness breath or palpitations. Has not experience any abdominal pain. Busch catheter remains in place. It was noted by nursing staff that patient may have had some diarrhea overnight. Objective: Vitals (See below) General: She is lying in bed, appears to be comfortable, not in acute distress, is oriented to person, place, time HEENT: AT, [place] CVS: +S1S2 Lungs: Air entry is fair bilaterally without evidence of wheezing, rhonchi Abdomen: Abdomen remains soft without distention or tenderness Extremities: Right foot deformity noted with ulceration that appears clean Imaging: CT head 02/01: No acute intracranial pathology is appreciated. Chronic atrophic and microischemic changes. Renal US 02/01: 1. Normal appearance of the kidneys without hydronephrosis. CXR 12/18: No acute abnormality. Markedly distended air-filled colon in the visualized upper abdomen. Assessment and plan: Sepsis - possibly 2/2 UTI, possibly 2/2 R foot ulcer - Patient remains afebrile / hemodynamically stable - s/p Leukocytosis - No lactic acidosis - Blood culture 02/01: 1 of 2 positive - Gram-positive cocci in clusters; Repeat Blood cultures 02/02: Pending - UA abnormal; Urine culture 02/01: E. Coli - Elevated ESR / CRP - will repeat today - Will start Ceftriaxone; Will DC Vancomycin and Zosyn (Antibiotic day #3) s/p Hypotension s/p Metabolic acidosis - Patient reports a history of diarrhea in his recent past - No documented diarrhea currently - Patient's bicarbonate has been severely depressed; has been improving - Corrected AG for albumin of 14 on admission - Delta / Delta of < 0.4 on admission - Urine AG negative - s/p bicarbonate drip - Nephrology on consultation; we appreciate their input Syncope - likely 2/2 multifactorial etiology - Hypotension / Infection / Anemia / Vasovagal event - c/w telemetry monitoring - ECHO complete; report pending Macrocytic anemia - possibly 2/2 acute blood loss 2/2 GI bleed, possibly 2/2 hematuria, possibly 2/2 recent nose bleed - Stool for occult blood positive in ER - s/p 2 unit PRBC - H&H remains stable - Iron panel consistent with deficiency - B12 and folate are pending - Coumadin on hold - c/w Protonix IV and Carafate Supra-therapeutic INR - Coumadin remains on hold - Will give Vitamin K PO s/p Thrombocytosis - possibly 2/2 sepsis, possibly 2/2 anemia (SANYA) LYSSA on CKD3 - Cr baseline of 1.3-1.6; Cr on admission of 2.7 - Creatinine continues to improve - FENA 1.0 - Nephrology on consultation; we appreciate their input Hypernatremia - Improving - s/p Bicarbonate drip; c/w D5W with potassium - Nephrology on consultation; we appreciate their input Hypokalemia - Will provide additional supplementation COVID 19 - Dx 12/17/2020 - Asymptomatic Recurrent CVA - c/w Statin - Coumadin on hold (re: Anemia) - Will hold ASA PVD - c/w Statin - Will hold ASA NIDDM2 - c/w ISS and Levmir Hx of Seizures - c/w Keppra Depression - c/w Fluoxetine GI prophylaxis - c/w Protonix / Carafate (re: Positive stool for occult / Anemia) DVT prophylaxis - c/w TEDs/Sequentials Contact: - Daughter Yaz; Disposition: - Awaiting clinical improvement VS,Dieudonne, I+O VS, Dieudonne, I+O Laboratory Tests 02/02/21 10:58 02/02/21 14:43 02/03/21 04:49 Vital Signs Date Time Temp Pulse Resp B/P (MAP) Pulse Ox O2 Delivery O2 Flow Rate FiO2 02/03/21 08:00 97.4 96 18 133/62 (85) 94 Room Air 02/02/21 12:00 2.0 I&O- Last 24 Hours up to 6 AM 02/03/21 06:00 Intake Total 2180 ml Output Total 875 ml Balance 1305 ml JUANITO RODRIGUEZ MD Feb 03, 2021 09:29
[2021-02-03] MEDS: POTASSIUM CHLORIDE INJ 40 MEQ in D5W 1,000 ML IV SCH ×2 (10:10→22:49)
[2021-02-03 11:14] LABS: C REACTIVE PROTEIN QUANTITATIV 3.98 MG/DL (0.00-0.30)
[2021-02-03 11:47] LABS: ERYTHROCYTE SEDIMENTATION RATE 126 mm/hr (0-20)
[2021-02-03 11:59] LABS: VITAMIN B12 LEVEL 524 PG/ML
[2021-02-03 12:00] LABS: FOLATE > 24.0 NG/ML
[2021-02-03 12:07] LABS: CREATININE FOR GFR 2.16 MG/DL (0.70-1.30); GLOMERULAR FILTRATION RATE 31.9 (>42); POTASSIUM SERUM 3.4 MEQ/L (3.5-5.1)
[2021-02-03] MEDS ORDERED: VARIBAR PUDDING 40% w/v 230ML TUBE As Ordered ONE (12:25)
[2021-02-03] MEDS ORDERED: VARIBAR NECTAR 40% w/v 240ML SUSP BTL As Ordered ONE (12:25)
[2021-02-03] MEDS ORDERED: E-Z-PAQUE 96% w/w SUSP 176GM BTL As Ordered ONE (12:26)
[2021-02-03] MEDS ORDERED: BARIUM SULFATE 700 MG TABLET (E-Z-DISK) As Ordered ONE (12:26)
[2021-02-03] MEDS: cefTRIAXone SOD 1 GM in D5W MINI-BAG PLUS 50 ML IV SCH (12:41)
--- NOTE | 2021-02-03 13:14 | REP ---
INDICATION: follow up CXR with distended colon.. COMPARISON: 12/28/2020. TECHNIQUE: Two views abdomen and pelvis. FINDINGS: Once again a loop of colon is significantly dilated with air and contains some fecal material. This was present on the prior study. The appearance is essentially unchanged compared to the prior exam. Vascular calcifications are seen in the pelvis. There are degenerative changes of the spine. IMPRESSION: Significantly dilated loop of colon appears unchanged compared to the prior study of 12/28/2020. <Electronically signed by Anil Dominique > 02/03/21 1316
[2021-02-03 15:31] LABS: CALCIUM LEVEL 8.2 MG/DL (8.8-10.2); CREATININE FOR GFR 2.07 MG/DL (0.70-1.30); GLOMERULAR FILTRATION RATE 33.5 (>42); POTASSIUM SERUM 3.8 MEQ/L (3.5-5.1)
[2021-02-03 16:00] VITALS: BP 107/57
--- NOTE | 2021-02-03 18:04 | REP ---
INDICATION: dysphagia.. COMPARISON: NONE TECHNIQUE: The procedure was performed under the direct supervision of . The procedure was performed with Bailee Nick from speech pathology present. 5 CC aliquots of thin, nectar, pudding, mixed fruit and soft consistency barium was administered as well as a barium pill in applesauce. 3.3 minutes of fluoroscopy time was utilized for this procedure. FINDINGS: With thin and nectar consistency barium there is laryngeal penetration. A detailed report of this examination will be provided by speech pathology. IMPRESSION: With thin and nectar consistency barium there is laryngeal penetration. A detailed report of this examination will be provided by speech pathology. <Electronically signed by Immanuel Greenberg > 02/03/21 1648 <Electronically signed by Anil Dominique > 02/03/21 1800
[2021-02-03] MEDS: LEVEMIR (INSULIN DETEMIR) 1 UNITS/0.01ML SC SCH (21:05)
[2021-02-03] MEDS: ATORVASTATIN 20 MG TAB PO SCH (21:05)
--- NOTE | 2021-02-03 22:23 | IPN ---
NEPHROLOGY PROGRESS NOTE DATE: 02/03/2021 SUBJECTIVE: The patient was seen and examined at the bedside today morning. He is still very lethargic and weak and drowsy. He continues to be on IV fluid hydration. IV fluids were changed to D5W with KCL today morning. Renal function is better. His acidosis is improving but he still has hypernatremia and hypokalemia. OBJECTIVE: VITAL SIGNS: Temperature is 97.6 degrees Fahrenheit, blood pressure 128/60, pulse is 94, respiratory rate of 20 saturating 95% on room air. INTAKE AND OUTPUT: Urine output recorded as 1.2 liters yesterday, 650 mL so far today since overnight. Weight in the bed scale is 71.1 kg. PHYSICAL EXAMINATION: GENERAL APPEARANCE: The patient is laying in bed very weak and lethargic, answers very few questions. HEAD AND NECK: Pupils are equally round and reactive to light. Mucous membranes are moist. Neck is supple. There is no jugular venous distention. CARDIOVASCULAR: S1, S2, regular rate. EXTREMITIES: No edema of the bilateral lower extremities. RESPIRATORY: Chest is clear to auscultation bilaterally. ABDOMEN: Distended, mildly tender to deep palpation of the right lower quadrant and left lower quadrant. Decreased bowel sounds were noted. GENITOURINARY: He has an indwelling Busch catheter. MUSCULOSKELETAL: No clubbing, no cyanosis. Pulses are 2+ and he has a right foot deformity. 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 LAB REVIEW: CBC showed a white blood cell count of 7.9, hemoglobin 8.3, platelet count 398. BMP showed sodium 154, potassium 3.8, chloride 123, bicarbonate 26, BUN 36, creatinine is 2; it was 2.1 yesterday. Calcium is 8.2. Microbiology cultures are negative so far. IMAGING: Esophageal swallowing was done which showed with thin and active consistency barium that is laryngeal penetration. Xray KUB was done today. It showed a very large distended colon. CURRENT INPATIENT MEDICATIONS: The patient's medications were all reviewed by myself. His IV antibiotics have been change to Rocephin. I have changed the IV fluids to d5w with KCL 40 mEq at 100 mL an hour. Zosyn and Vancomycin have been stopped. He continues to be on Lipitor. I have stopped his Bicitra because of distended colon. Colace has also been stopped. He was given a dose of Vitamin-K today. He was also given a dose of oral potassium chloride. ASSESSMENT AND PLAN: 1. Acute renal failure - The patient is non oliguric. He is responding to IV fluids. Continue IV fluid hydration at this time. 2. Urinary tract infection - continue IV antibiotics. Antibiotic has been changed to Ceftriaxone. 3. Sepsis secondary to gram positive bacteremia final cultures are still pending at this time. Repeat cultures on February 02 are negative. 4. Megacolon on abdominal x-ray I have requested the Medical Team to get Surgical Service on board. 5. Hyperchloremic metabolic acidosis - This patient is getting oral Bicitra. IV bicarbonate has been stopped. IV fluids have been changed to d5w with potassium only. 6. Hypernatremia it is secondary to poor oral intake and dysphagia. He is getting dextrose containing fluid now. Hopefully sodium levels should improve over the next 24-48 hours. MTDD
[2021-02-04] VITALS (10 sets, daily range): BP systolic 74–153; BP diastolic 56–78
[2021-02-04] MEDS: PANTOPRAZOLE 40MG VIAL (C9113 PER 1) IV SCH ×2 (05:07→17:53)
[2021-02-04] MEDS: SUCRALFATE 1 GM TAB PO SCH ×3 (05:07→20:27)
[2021-02-04 05:51] LABS: BASO # 0.1 10^3/uL (0.0-0.2); BASO % 0.7 % (0.0-1.0); EOS # 0.2 10^3/uL (0.0-0.5); EOS % 2.9 % (0.0-3.0); HEMATOCRIT 25.4 % (42.0-52.0); HEMOGLOBIN 7.7 g/dl (13.5-17.5); LYMPH # 2.1 10^3/uL (1.5-5.0); LYMPH % 25.1 % (24.0-44.0); MEAN CORPUSCULAR HEMOGLOBIN 28.8 pg (27.0-33.0); MEAN CORPUSCULAR HGB CONC 30.3 g/dl (32.0-36.5); MEAN CORPUSCULAR VOLUME 95.1 fl (80.0-96.0); MONO # 0.8 10^3/uL (0.0-0.8); MONO % 9.4 % (2.0-8.0); NEUTROPHILS % 60.7 % (36.0-66.0); PLATELET COUNT, AUTOMATED 389 10^3/uL (150-450); RED BLOOD COUNT 2.67 10^6/uL (4.30-6.10); WHITE BLOOD COUNT 8.3 10^3/uL (4.0-10.0)
[2021-02-04 06:05] LABS: INR 4.22; PROTHROMBIN TIME 41.6 SECONDS (12.5-14.3)
[2021-02-04 06:25] LABS: ALBUMIN 1.8 GM/DL (3.2-5.2); BILIRUBIN,TOTAL 0.3 MG/DL (0.2-1.0); CALCIUM LEVEL 8.4 MG/DL (8.8-10.2); CREATININE FOR GFR 1.86 MG/DL (0.70-1.30); GLOMERULAR FILTRATION RATE 37.9 (>42); MAGNESIUM LEVEL 1.9 MG/DL (1.8-2.4); POTASSIUM SERUM 3.3 MEQ/L (3.5-5.1); TOTAL PROTEIN 5.2 GM/DL (6.4-8.2)
[2021-02-04] MEDS: HumaLOG INSULIN (NovoLOG) PER UNIT SC SCH ×4 (08:31→20:21)
[2021-02-04] MEDS: TAMSULOSIN 0.4 MG CAP PO SCH (08:32)
[2021-02-04] MEDS: levETIRAcetam 250MG TABLET (KEPPRA) PO SCH ×2 (08:32→20:27)
[2021-02-04] MEDS: FLUoxetine 20 MG CAP PO SCH (08:32)
[2021-02-04] MEDS ORDERED: POTASSIUM CHLORIDE 10 MEQ SR TABLET PO ONE (09:00)
[2021-02-04] MEDS: POTASSIUM CHLORIDE INJ 40 MEQ in D5W 1,000 ML IV SCH ×3 (10:32→20:34)
[2021-02-04] MEDS: cefTRIAXone SOD 1 GM in D5W MINI-BAG PLUS 50 ML IV SCH (12:27)
--- NOTE | 2021-02-04 15:57 | IPNPDOC ---
Text Note Date of Service The patient was seen on 02/04/21. NOTE Subjective: -Denies any chest pain, shortness breath, palpitations or any abdominal pain. Objective: Vitals: See below General: No acute distress, AOx3 HEENT: NCAT, MMM, EOMI CVS: RRR, no m/r/g, +S1S2 Lungs: Air entry is fair bilaterally without evidence of wheezing, rhonchi or crackles Abdomen: Abdomen remains soft without distention or tenderness with normoactive bowel sounds Extremities: Right foot deformity noted with ulceration that appears clean without drainage or surrounding erythema Labs: WBC 8.3 Hgb 7.7 platelets 389 na 151 K 3.3 BUN 33 Cr 1.86 Mag 1.9 Imaging: CT head 02/01: No acute intracranial pathology is appreciated. Chronic atrophic and microischemic changes. Renal US 02/01: 1. Normal appearance of the kidneys without hydronephrosis. CXR 12/18: No acute abnormality. Markedly distended air-filled colon in the visualized upper abdomen. 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 Sepsis - 2/2 UTI, possible to also be 2/2 R foot ulcer - Was hypotensive and had leukocytosis at presentation that have resolved - Blood culture 02/01: 1 of 2 positive w/ staph hemolyticus, likely contaminant, repeat 02/02 BCx were negative x 2 - Urine culture 02/01 grew E. Coli, on ceftriaxone, day 3 of abx, will switch to oral keflex - Elevated ESR / CRP - downtrending s/p Metabolic acidosis - Patient reports a history of diarrhea in his recent past - No documented diarrhea currently - Patient's bicarbonate was low now s/p bicarb gtt - Corrected AG for albumin of 14 on admission - Delta / Delta of < 0.4 on admission - Urine AG negative - Nephrology on consultation; we appreciate their input Syncope - likely 2/2 multifactorial etiology - Hypotension 2/2 sepsis i/s/o infection / Anemia - c/w telemetry monitoring - ECHO complete; report pending Macrocytic anemia - possibly 2/2 acute blood loss 2/2 GI bleed, possibly 2/2 hematuria, possibly exacerbated by recent nose bleed - Stool for occult blood positive in ER - s/p 2 unit PRBC. Will give 1 more unit today for Hgb 7.7 - H&H remains stable - Iron panel consistent with iron deficiency - B12 and folate are pending - Coumadin on hold - c/w Protonix IV and Carafate Supra-therapeutic INR - Coumadin remains on hold - s/p Vitamin K PO s/p Thrombocytosis - possibly reactive to sepsis and anemia (SANYA) LYSSA on CKD3 - Cr baseline of 1.3-1.6; Cr on admission of 2.7 - Creatinine continues to improve - Nephrology on consultation; we appreciate their input Hypernatremia - Improving - s/p Bicarbonate drip; c/w D5W with potassium - Nephrology on consultation; we appreciate their input Hypokalemia - Will provide additional supplementation COVID 19 - Dx 12/17/2020 - Asymptomatic Recurrent CVA - c/w Statin - Coumadin on hold (re: Anemia) - Will hold ASA PVD - c/w Statin - Will hold ASA NIDDM2 - c/w ISS and Levmir Hx of Seizures - c/w Keppra Depression - c/w Fluoxetine GI prophylaxis - c/w Protonix / Carafate (re: Positive stool for occult / Anemia) DVT prophylaxis - c/w TEDs/Sequentials Contact: - Daughter Yaz; Disposition: - Awaiting clinical improvement VS,Dieudonne, I+O VS, Dieudonne, I+O Laboratory Tests 02/03/21 11:10 02/03/21 14:40 02/04/21 04:58 Vital Signs Date Time Temp Pulse Resp B/P (MAP) Pulse Ox O2 Delivery O2 Flow Rate FiO2 02/04/21 07:33 97.0 02/04/21 07:08 93 18 113/58 (76) 96 Room Air 02/02/21 12:00 2.0 I&O- Last 24 Hours up to 6 AM 02/04/21 06:00 Intake Total 1210 ml Output Total 1250 ml Balance -40 ml VIDYA FERNANDES MD Feb 04, 2021 08:52
[2021-02-04] MEDS: CEPHALEXIN 250MG CAPSULE PO SCH ×2 (17:53→23:02)
[2021-02-04 19:55] LABS: HEMATOCRIT 29.1 % (42.0-52.0); HEMOGLOBIN 8.8 g/dl (13.5-17.5); MEAN CORPUSCULAR HEMOGLOBIN 28.5 pg (27.0-33.0); MEAN CORPUSCULAR HGB CONC 30.2 g/dl (32.0-36.5); MEAN CORPUSCULAR VOLUME 94.2 fl (80.0-96.0); PLATELET COUNT, AUTOMATED 324 10^3/uL (150-450); RED BLOOD COUNT 3.09 10^6/uL (4.30-6.10); WHITE BLOOD COUNT 8.9 10^3/uL (4.0-10.0)
[2021-02-04 20:26] LABS: CREATININE FOR GFR 1.7 MG/DL (0.70-1.30); POTASSIUM SERUM 3.9 MEQ/L (3.5-5.1)
[2021-02-04] MEDS: ATORVASTATIN 20 MG TAB PO SCH (20:27)
[2021-02-04] MEDS: LEVEMIR (INSULIN DETEMIR) 1 UNITS/0.01ML SC SCH (20:28)
[2021-02-05] VITALS (7 sets, daily range): BP systolic 121–169; BP diastolic 61–85
[2021-02-05] MEDS: PANTOPRAZOLE 40MG VIAL (C9113 PER 1) IV SCH ×2 (05:26→17:56)
[2021-02-05] MEDS: SUCRALFATE 1 GM TAB PO SCH ×3 (05:26→21:38)
[2021-02-05] MEDS: CEPHALEXIN 250MG CAPSULE PO SCH ×3 (05:26→17:56)
[2021-02-05] MEDS: POTASSIUM CHLORIDE INJ 40 MEQ in D5W 1,000 ML IV SCH ×3 (05:39→22:56)
[2021-02-05 05:57] LABS: BASO # 0.1 10^3/uL (0.0-0.2); BASO % 0.7 % (0.0-1.0); EOS # 0.3 10^3/uL (0.0-0.5); HEMATOCRIT 29.4 % (42.0-52.0); HEMOGLOBIN 9.1 g/dl (13.5-17.5); LYMPH % 23.2 % (24.0-44.0); MEAN CORPUSCULAR HEMOGLOBIN 29.1 pg (27.0-33.0); MEAN CORPUSCULAR VOLUME 93.9 fl (80.0-96.0); MONO # 0.7 10^3/uL (0.0-0.8); MONO % 8.3 % (2.0-8.0); NEUTROPHILS # 5.4 10^3/uL (1.5-8.5); NEUTROPHILS % 62.6 % (36.0-66.0); PLATELET COUNT, AUTOMATED 325 10^3/uL (150-450); RED BLOOD COUNT 3.13 10^6/uL (4.30-6.10); WHITE BLOOD COUNT 8.6 10^3/uL (4.0-10.0)
[2021-02-05 06:21] LABS: ALBUMIN 1.7 GM/DL (3.2-5.2); BILIRUBIN,TOTAL 0.3 MG/DL (0.2-1.0); CREATININE FOR GFR 1.61 MG/DL (0.70-1.30); GLOMERULAR FILTRATION RATE 44.8 (>42); MAGNESIUM LEVEL 1.5 MG/DL (1.8-2.4); POTASSIUM SERUM 3.5 MEQ/L (3.5-5.1); TOTAL PROTEIN 5.8 GM/DL (6.4-8.2)
[2021-02-05 06:23] LABS: INR 2.21
[2021-02-05] MEDS: FLUoxetine 20 MG CAP PO SCH (08:47)
[2021-02-05] MEDS: TAMSULOSIN 0.4 MG CAP PO SCH (08:47)
[2021-02-05] MEDS: levETIRAcetam 250MG TABLET (KEPPRA) PO SCH ×2 (08:47→21:38)
[2021-02-05] MEDS: HumaLOG INSULIN (NovoLOG) PER UNIT SC SCH ×4 (08:48→21:00)
--- NOTE | 2021-02-05 08:59 | IPN ---
NEPHROLOGY PROGRESS NOTE DATE: 02/04/2021 SUBJECTIVE: Patient was seen and examined at the bedside today morning. Last 24-hour events were noted. His x-ray KUB was reviewed by surgical service. No intervention was recommended because patient's abdomen is not tender. He continues to be on I.V. fluid hydration. He has persistent hypernatremia, however, renal function is gradually improving. OBJECTIVE: VITAL SIGNS: Temperature 98.1 degrees Fahrenheit, blood pressure 136/70, pulse 106, respiratory rate 18, saturating 98% on room air. INTAKE/OUTPUT: Urine output recorded as 650 mL yesterday and 1.3 liters so far today since overnight. Weight in the bed scale is 72.8 kg. PHYSICAL EXAMINATION: GENERAL: Patient is awake, alert and oriented x2, lying in bed, weak and lethargic. HEAD/NECK: Extraocular muscles intact. Pupils equally round and reactive to light. Mucous membranes are moist. Neck is supple. There is no JVD. CVS: S1, S2, regular rate. No edema of the bilateral lower extremities. RESPIRATORY: Clear to auscultation bilaterally. Bilateral equal air entry. No rales or rhonchi. ABDOMEN: Soft, distended, nontender. Bowel sounds are positive. GENITOURINARY: He has an indwelling Busch catheter. MUSCULOSKELETAL: He has bilateral foot deformities; right is worse than left. 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 LABORATORY REVIEW: CBC showed WBC 8.9, hemoglobin 8.8, platelets 324,000. INR today 4.2. BMP done today morning showed sodium 151, potassium 3.3, chloride 120, bicarb 24, BUN 33, creatinine 1.8. Calcium 8.4. Magnesium 1.9. MICROBIOLOGY: Blood cultures are negative. CURRENT INPATIENT MEDICATIONS: Patient's medications were all reviewed by myself. I changed the I.V. fluid to D5W with KCl at 125 cc an hour. He was also given potassium chloride 40 mEq p.o. times one dose. No other change in the medications. ASSESSMENT AND PLAN: 1. Acute renal failure: It is secondary to dehydration and poor oral intake. He continues to be on I.V. fluid hydration. Creatinine is slowly trending down. 2. Hypernatremia: It is secondary to decreased oral intake. Patient continues to be on I.V. fluid D5W. Sodium level is gradually improving. 3. Hypokalemia: Patient is getting oral and I.V. potassium. Potassium level should improve over the next 24 hours. 4. Urinary tract infection: Patient is getting I.V. Ceftriaxone. 5. Hyperchloremic metabolic acidosis: Oral Bicitra and I.V. bicarb have been stopped. Serum bicarb level is improving. Hyperchloremia is improving after changing the I.V. fluids.
[2021-02-05] MEDS ORDERED: MAG SULF 1GM/100ML (MAG RUN) 1 GM in IV 1 EA IV ONE (09:30)
[2021-02-05] MEDS ORDERED: POTASSIUM CHLORIDE 10 MEQ SR TABLET PO ONE (09:30)
[2021-02-05] MEDS: ASPIRIN 81 MG CHEW TABLET PO SCH (10:42)
--- NOTE | 2021-02-05 13:51 | IPNPDOC ---
Text Note Date of Service The patient was seen on 02/05/21. NOTE Subjective: -Denies any chest pain, shortness breath, palpitations or any abdominal pain. Objective: Vitals: See below General: No acute distress, AOx3 HEENT: NCAT, MMM, EOMI CVS: RRR, no m/r/g, +S1S2 Lungs: Air entry is fair bilaterally without evidence of wheezing, rhonchi or crackles Abdomen: Abdomen remains soft without distention or tenderness with normoactive bowel sounds Extremities: Right foot deformity noted with ulceration that appears clean without drainage or surrounding erythema Labs: WBC 8.3 Hgb 7.7 platelets 389 na 151 K 3.3 BUN 33 Cr 1.86 Mag 1.9 Imaging: CT head 02/01: No acute intracranial pathology is appreciated. Chronic atrophic and microischemic changes. Renal US 02/01: 1. Normal appearance of the kidneys without hydronephrosis. CXR 12/18: No acute abnormality. Markedly distended air-filled colon in the visualized upper abdomen. 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 Sepsis - 2/2 UTI, possible to also be 2/2 R foot ulcer - Was hypotensive and had leukocytosis at presentation that have resolved - Blood culture 02/01: 1 of 2 positive w/ staph hemolyticus, likely contaminant, repeat 02/02 BCx were negative x 2 - Urine culture 02/01 grew E. Coli, switched to oral keflex, day 4 of 7 of abx - Elevated ESR / CRP - downtrending s/p Metabolic acidosis: resolved - Patient reports a history of diarrhea in his recent past - No documented diarrhea currently - Patient's bicarbonate was low now s/p bicarb gtt - Corrected AG for albumin of 14 on admission - Delta / Delta of < 0.4 on admission - Urine AG negative - Nephrology on consultation; we appreciate their input Syncope - likely 2/2 multifactorial etiology - Hypotension 2/2 sepsis i/s/o infection / Anemia - c/w telemetry monitoring - ECHO complete; report pending Macrocytic anemia - possibly 2/2 acute blood loss 2/2 GI bleed, possibly 2/2 hematuria, possibly exacerbated by recent nose bleed - Stool for occult blood positive in ER - s/p 2 unit PRBC. Will give 1 more unit today for Hgb 7.7 - H&H remains stable - Iron panel consistent with iron deficiency - B12 and folate are pending - Coumadin on hold - c/w Protonix IV and Carafate Supra-therapeutic INR: resolved with holding warfarin and giving Vit K - s/p Vitamin K PO - will restart his warfarin today s/p Thrombocytosis - possibly reactive to sepsis and anemia (SANYA) LYSSA on CKD3: 2/2 dehydration, resolving with hydration - Cr baseline of 1.3-1.6; Cr on admission of 2.7 - Creatinine continues to improve - Nephrology on consultation; we appreciate their input Hypernatremia: 2/2 dehydration, resolving with hydration - Improving - s/p Bicarbonate drip; c/w D5W with potassium - Nephrology on consultation; we appreciate their input Hypokalemia - Will provide additional supplementation Recurrent CVA - c/w Statin - restart Coumadin - restart ASA PVD - c/w Statin - resume ASA NIDDM2 - c/w ISS and Levmir Hx of Seizures - c/w Keppra Depression - c/w Fluoxetine GI prophylaxis - c/w Protonix / Carafate (re: Positive stool for occult / Anemia) DVT prophylaxis - c/w warfarin Contact: - Daughter Yaz; Disposition: - Awaiting clinical improvement, PT/OT VS,iDeudonne, I+O VS, [place]one, I+O Laboratory Tests 02/04/21 19:42 02/05/21 05:30 Vital Signs Date Time Temp Pulse Resp B/P (MAP) Pulse Ox O2 Delivery O2 Flow Rate FiO2 02/05/21 07:38 98.0 103 17 136/69 (91) 96 Room Air 02/02/21 12:00 2.0 I&O- Last 24 Hours up to 6 AM 02/05/21 06:00 Intake Total 2500 ml Output Total 1450 ml Balance 1050 ml VIDYA FERNANDES MD Feb 05, 2021 09:39
[2021-02-05] MEDS: WARFARIN SOD 2MG TAB PO SCH (17:56)
[2021-02-05] MEDS: LEVEMIR (INSULIN DETEMIR) 1 UNITS/0.01ML SC SCH (21:38)
[2021-02-05] MEDS: ATORVASTATIN 20 MG TAB PO SCH (21:38)
--- NOTE | 2021-02-05 22:59 | IPN ---
NEPHROLOGY PROGRESS NOTE DATE: 02/05/2021 SUBJECTIVE: The patient was seen and examined at the bedside today morning. He continues to be on IV fluid hydration. His renal function is stable and gradually improving and hypernatremia is mild and persistent at this time. OBJECTIVE: VITAL SIGNS: Temperature is 97.2 degrees Fahrenheit, blood pressure 156/84, pulse rate 103, respiratory rate of 20, saturating 95% on room air. INTAKE AND OUTPUT: Urine output recorded as 1.7 liters yesterday, 1.3 liters so far today since overnight. Weight in the bed scale is 75.4 kg. PHYSICAL EXAMINATION: GENERAL APPEARANCE: The patient is awake, alert, oriented x3, laying in bed in no apparent distress. HEAD AND NECK: Extraocular muscles intact. Pupils are equally round and reactive to light. Mucous membranes are moist. Neck is supple. There is no jugular venous distention. CARDIOVASCULAR: S1, S2, regular rate. EXTREMITIES: No edema of the bilateral lower extremities. RESPIRATORY: Chest is clear to auscultation bilaterally. Bilaterally currently no rales or rhonchi. ABDOMEN: Soft and distended. Positive bowel sounds, nontender. GENITOURINARY: He has an indwelling Busch catheter. MUSCULOSKELETAL: Deformity of the bilateral feet - right is worse than left. COIL TIER: He has weakness of the left arm. LAB REVIEW: CBC showed a WBC count of 8.6, hemoglobin 9.1, platelet count 325. BMP showed sodium of 146, potassium 3.5, chloride 119, bicarbonate 23, BUN 21, creatinine is 1.6. It was 1.7 yesterday. Calcium is 8, magnesium 1.5. Albumin is 1.7. CURRENT INPATIENT MEDICATIONS: The patient's medications were all reviewed by myself. He continues to be on IV fluid hydration, d5w with potassium at 125 mL an hour. He has been started on Keflex 250 mg p.o. q. 6 hourly. There is no significant change in the medications. ASSESSMENT AND PLAN: 1. Acute renal failure - The patient is non oliguric. He is getting IV fluid hydration and is making very good amount of urine. Renal function is gradually improving. Creatinine has improved to 1.6 today. 2. Hypernatremia - The patient is getting IV dextrose. Sodium level is stable and improving and it has been fluctuating around 145 to 146. 3. Hypokalemia - potassium is improved with IV potassium in the IV fluids and oral potassium as well. 4. Hyperchloremic metabolic acidosis hyperchloremia is gradually resolving. Bicarbonate level is within the acceptable range. 5. Anemia and chronic kidney disease - hemoglobin is 9.1 which is stable and improving. He also had iron deficiency. He is status post 3 units of PRBC transfusion.
[2021-02-06] MEDS: CEPHALEXIN 250MG CAPSULE PO SCH ×5 (00:24→23:44)
[2021-02-06 06:00] VITALS: BP 105/68
[2021-02-06 06:01] LABS: BASO % 0.4 % (0.0-1.0); EOS # 0.4 10^3/uL (0.0-0.5); EOS % 3.9 % (0.0-3.0); HEMATOCRIT 29.2 % (42.0-52.0); HEMOGLOBIN 8.9 g/dl (13.5-17.5); LYMPH % 21.9 % (24.0-44.0); MEAN CORPUSCULAR HEMOGLOBIN 28.8 pg (27.0-33.0); MEAN CORPUSCULAR HGB CONC 30.5 g/dl (32.0-36.5); MEAN CORPUSCULAR VOLUME 94.5 fl (80.0-96.0); MONO # 0.7 10^3/uL (0.0-0.8); MONO % 7.9 % (2.0-8.0); NEUTROPHILS # 5.9 10^3/uL (1.5-8.5); NEUTROPHILS % 64.5 % (36.0-66.0); PLATELET COUNT, AUTOMATED 305 10^3/uL (150-450); RED BLOOD COUNT 3.09 10^6/uL (4.30-6.10); WHITE BLOOD COUNT 9.2 10^3/uL (4.0-10.0)
[2021-02-06 06:15] LABS: INR 1.88
[2021-02-06 06:27] LABS: ALBUMIN 1.8 GM/DL (3.2-5.2); BILIRUBIN,TOTAL 0.5 MG/DL (0.2-1.0); CALCIUM LEVEL 7.5 MG/DL (8.8-10.2); CREATININE FOR GFR 1.34 MG/DL (0.70-1.30); GLOMERULAR FILTRATION RATE 55.3 (>42); MAGNESIUM LEVEL 1.5 MG/DL (1.8-2.4); POTASSIUM SERUM 3.9 MEQ/L (3.5-5.1); TOTAL PROTEIN 5.2 GM/DL (6.4-8.2)
[2021-02-06] MEDS: PANTOPRAZOLE 40MG VIAL (C9113 PER 1) IV SCH ×2 (06:32→17:27)
[2021-02-06] MEDS: SUCRALFATE 1 GM TAB PO SCH ×3 (06:32→22:27)
[2021-02-06] MEDS: POTASSIUM CHLORIDE INJ 40 MEQ in D5W 1,000 ML IV SCH ×3 (06:34→17:26)
[2021-02-06] MEDS: levETIRAcetam 250MG TABLET (KEPPRA) PO SCH ×2 (08:20→22:26)
[2021-02-06] MEDS: TAMSULOSIN 0.4 MG CAP PO SCH (08:20)
[2021-02-06] MEDS: FLUoxetine 20 MG CAP PO SCH (08:20)
[2021-02-06] MEDS: ASPIRIN 81 MG CHEW TABLET PO SCH (08:20)
[2021-02-06] MEDS: ACETAMINOPHEN TAB 650MG DOSE (2X325MG) PO PRN (08:20)
[2021-02-06] MEDS: HumaLOG INSULIN (NovoLOG) PER UNIT SC SCH ×4 (08:21→21:00)
[2021-02-06 14:05] VITALS: BP 137/85
--- NOTE | 2021-02-06 15:46 | IPNPDOC ---
Text Note Date of Service The patient was seen on 02/06/21. NOTE Subjective: -No acute events -Denies any chest pain, shortness breath, palpitations or any abdominal pain. Objective: Vitals: See below General: No acute distress, AOx3 HEENT: NCAT, MMM, EOMI CVS: RRR, no m/r/g, +S1S2 Lungs: Air entry is fair bilaterally without evidence of wheezing, rhonchi or crackles Abdomen: Abdomen remains soft without distention or tenderness with normoactive bowel sounds Extremities: Right foot deformity noted with ulceration that appears clean w ithout drainage or surrounding erythema Labs: WBC 9.2 Hgb 8.9 platelets 305 na 140 K 3.9 Cr 1.34 Mag 1.5 Imaging: CT head 02/01: No acute intracranial pathology is appreciated. Chronic atrophic and mi croischemic changes. Renal US 02/01: 1. Normal appearance of the kidneys without hydronephrosis. CXR 12/18: No acute abnormality. Markedly distended air-filled colon in the visualized upper abdomen. 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 Sepsis - 2/2 UTI, possible to also be 2/2 R foot ulcer - Was hypotensive and had leukocytosis at presentation that have resolved - Blood culture 02/01: 1 of 2 positive w/ staph hemolyticus, likely contaminant, repeat 02/02 BCx were negative x 2 - Urine culture 02/01 grew E. Coli, switched to oral keflex, day 5 of 7 of abx - Elevated ESR / CRP - downtrended s/p Metabolic acidosis: resolved - Patient reports a history of diarrhea in his recent past - No documented diarrhea currently - Patient's bicarbonate was low now s/p bicarb gtt - Corrected AG for albumin of 14 on admission - Delta / Delta of < 0.4 on admission - Urine AG negative - Nephrology on consultation; we appreciate their input Syncope - likely 2/2 multifactorial etiology - Hypotension 2/2 sepsis i/s/o infection / Anemia - c/w telemetry monitoring - ECHO complete; report pending Macrocytic anemia - possibly 2/2 acute blood loss 2/2 GI bleed, possibly 2/2 hematuria, possibly exacerbated by recent nose bleed - Stool for occult blood positive in ER - s/p 2 unit PRBC. Will give 1 more unit today for Hgb 7.7 - H&H remains stable - Iron panel consistent with iron deficiency - B12 and folate are pending - Coumadin on hold - c/w Protonix IV and Carafate Supra-therapeutic INR: resolved with holding warfarin and giving Vit K - s/p Vitamin K PO - will restart his warfarin today s/p Thrombocytosis - possibly reactive to sepsis and anemia (SANYA) LYSSA on CKD3: 2/2 dehydration, resolving with hydration - Cr baseline of 1.3-1.6; Cr on admission of 2.7 - Creatinine continues to improve - Nephrology on consultation; we appreciate their input Hypernatremia: 2/2 dehydration, resolving with hydration - Improving - s/p Bicarbonate drip; c/w D5W with potassium - Nephrology on consultation; we appreciate their input Hypokalemia - Will provide additional supplementation Recurrent CVA - c/w Statin - restart Coumadin - restart ASA PVD - c/w Statin - resume ASA NIDDM2 - c/w ISS and Levmir Hx of Seizures - c/w Keppra Depression - c/w Fluoxetine GI prophylaxis - c/w Protonix / Carafate (re: Positive stool for occult / Anemia) DVT prophylaxis - c/w warfarin Contact: - Daughter Yaz; Disposition: - Awaiting clinical improvement, PT/OT VS,Fishbone, I+O VS, Fishbone, I+O Laboratory Tests 02/06/21 05:29 Vital Signs Date Time Temp Pulse Resp B/P (MAP) Pulse Ox O2 Delivery O2 Flow Rate FiO2 02/06/21 14:05 97.6 102 18 137/85 (102) 93 Room Air 02/02/21 12:00 2.0 I&O- Last 24 Hours up to 6 AM 02/06/21 06:00 Intake Total 1954 ml Output Total 2525 ml Balance -571 ml VIDYA FERNANDES MD Feb 06, 2021 15:46
[2021-02-06] MEDS: WARFARIN SOD 1MG TAB PO SCH (17:22)
[2021-02-06 22:00] VITALS: BP 147/85
[2021-02-06] MEDS: ATORVASTATIN 20 MG TAB PO SCH (22:26)
[2021-02-06] MEDS: MAGNESIUM OXIDE 400MG TAB (MAG-OX) PO SCH (22:26)
[2021-02-06] MEDS: LEVEMIR (INSULIN DETEMIR) 1 UNITS/0.01ML SC SCH (22:28)
--- NOTE | 2021-02-06 23:25 | IPN ---
NEPHROLOGY PROGRESS NOTE DATE: 02/06/2021 SUBJECTIVE: The patient was seen and examined at the bedside today morning. He is much more awake and alert today. His renal function continues to improve. Creatinine is down to 1.3 today. Hypernatremia is also improving with a sodium of 140. He has a good urine output. He continues to be on IV fluid hydration. OBJECTIVE: VITAL SIGNS: Temperature is 97.2 degrees Fahrenheit, blood pressure 105/68, pulse is 105, respiratory rate of 21, saturating 95% on room air. INTAKE AND OUTPUT: Urine output recorded as 1,325 mL yesterday, 1,550 mL in the morning. Weight in the bed scale is not available. PHYSICAL EXAMINATION: GENERAL APPEARANCE: The patient is awake, alert, oriented x2, laying in bed in no apparent distress. HEAD AND NECK: Extraocular muscles intact. Pupils are equally round and reactive to light. Mucous membranes are moist. Neck is supple. There is no jugular venous distention. CARDIOVASCULAR: S1, S2, regular rate. EXTREMITIES: No edema of the bilateral lower extremities. RESPIRATORY: Chest is clear to auscultation bilaterally. Bilaterally currently no rales or rhonchi. ABDOMEN: Soft, positive bowel sounds, nontender, no organomegaly. GENITOURINARY: He has an indwelling Busch catheter. MUSCULOSKELETAL: Decreased movement of the left arm and bilateral foot deformities. ENFORCEMENT SAFETY OFFICER: The patient has left hemiparesis. LAB REVIEW: CBC showed a WBC count of 9.2, hemoglobin 8.9, platelet count 305. BMP showed sodium 140, potassium 3.9, chloride 111, bicarbonate 21, BUN 16, creatinine is 1.3, it was 1.6 yesterday, glucose 139, calcium is 7.5, magnesium is 1.5. CURRENT INPATIENT MEDICATIONS: The patient's medications were all reviewed by myself. He continues to be on IV fluids at 125 mL an hour. There is no significant change in the medications today as compared with yesterday. ASSESSMENT AND PLAN: 1. Acute non oliguric renal failure The patient is responding very well to the IV fluids. Continue current IV fluid hydration at the current rate. 2. Hypernatremia it was secondary to discomfort water intake and dehydration. He is currently on IV dextrose. Sodium level is improving, within the normal range. Further change in the IV fluids will be done tomorrow morning. 3. Hypokalemia - potassium has improved with the addition of potassium and IV fluids and oral potassium. 4. Hyperchloremic metabolic acidosis it is improving with the improvement in the volume status. Bicarbonate level has been in the acceptable range now. 5. Iron deficiency anemia - hemoglobin level is stable at 8.9. No need of blood transfusion.
[2021-02-07] MEDS: POTASSIUM CHLORIDE INJ 40 MEQ in D5W 1,000 ML IV SCH ×3 (01:13→21:21)
[2021-02-07 06:00] VITALS: BP 112/72
[2021-02-07] MEDS: SUCRALFATE 1 GM TAB PO SCH ×3 (06:03→21:20)
[2021-02-07] MEDS: PANTOPRAZOLE 40MG VIAL (C9113 PER 1) IV SCH ×2 (06:03→18:23)
[2021-02-07] MEDS: CEPHALEXIN 250MG CAPSULE PO SCH ×4 (06:03→22:43)
[2021-02-07 06:25] LABS: BASO # 0.1 10^3/uL (0.0-0.2); BASO % 0.6 % (0.0-1.0); EOS # 0.4 10^3/uL (0.0-0.5); EOS % 4.4 % (0.0-3.0); HEMATOCRIT 28.8 % (42.0-52.0); HEMOGLOBIN 8.7 g/dl (13.5-17.5); LYMPH # 1.9 10^3/uL (1.5-5.0); LYMPH % 22.4 % (24.0-44.0); MEAN CORPUSCULAR HEMOGLOBIN 28.3 pg (27.0-33.0); MEAN CORPUSCULAR HGB CONC 30.2 g/dl (32.0-36.5); MEAN CORPUSCULAR VOLUME 93.8 fl (80.0-96.0); MONO # 0.6 10^3/uL (0.0-0.8); MONO % 7.3 % (2.0-8.0); NEUTROPHILS # 5.5 10^3/uL (1.5-8.5); NEUTROPHILS % 63.9 % (36.0-66.0); PLATELET COUNT, AUTOMATED 282 10^3/uL (150-450); RED BLOOD COUNT 3.07 10^6/uL (4.30-6.10); WHITE BLOOD COUNT 8.7 10^3/uL (4.0-10.0)
[2021-02-07 06:34] LABS: INR 1.86; PROTHROMBIN TIME 21.8 SECONDS (12.5-14.3)
[2021-02-07 06:56] LABS: ALBUMIN 1.9 GM/DL (3.2-5.2); BILIRUBIN,TOTAL 0.4 MG/DL (0.2-1.0); CALCIUM LEVEL 8.1 MG/DL (8.8-10.2); CREATININE FOR GFR 1.43 MG/DL (0.70-1.30); GLOMERULAR FILTRATION RATE 51.3 (>42); MAGNESIUM LEVEL 1.7 MG/DL (1.8-2.4); POTASSIUM SERUM 4.1 MEQ/L (3.5-5.1); TOTAL PROTEIN 5.3 GM/DL (6.4-8.2)
[2021-02-07] MEDS: HumaLOG INSULIN (NovoLOG) PER UNIT SC SCH ×4 (09:30→20:33)
[2021-02-07] MEDS: TAMSULOSIN 0.4 MG CAP PO SCH (09:31)
[2021-02-07] MEDS: levETIRAcetam 250MG TABLET (KEPPRA) PO SCH ×2 (09:31→21:19)
[2021-02-07] MEDS: FLUoxetine 20 MG CAP PO SCH (09:31)
[2021-02-07] MEDS: ASPIRIN 81 MG CHEW TABLET PO SCH (09:31)
[2021-02-07] MEDS: ACETAMINOPHEN TAB 650MG DOSE (2X325MG) PO PRN ×2 (09:31→21:20)
[2021-02-07] MEDS: MAGNESIUM OXIDE 400MG TAB (MAG-OX) PO SCH ×2 (09:32→21:20)
[2021-02-07] MEDS ORDERED: MAG SULF 1GM/100ML (MAG RUN) 1 GM in IV 1 EA IV ONE (10:00)
--- NOTE | 2021-02-07 12:45 | IPNPDOC ---
Text Note Date of Service The patient was seen on 02/07/21. NOTE Subjective: -No acute events -Denies any chest pain, shortness breath, palpitations or any abdominal pain. Objective: Vitals: See below General: No acute distress, AOx3 HEENT: NCAT, MMM, EOMI CVS: RRR, no m/r/g, +S1S2 Lungs: Air entry is fair bilaterally without evidence of wheezing, rhonchi or crackles Abdomen: Abdomen remains soft without distention or tenderness with normoactive bowel sounds Extremities: Right foot deformity noted with ulceration that appears clean w ithout drainage or surrounding erythema Neuro: Aox3, CN 3-12 intact, weak 4/5 throughout Labs: bicarb 20 K 4.1 Cr 1.43 Mag 1.7 Imaging: CT head 02/01: No acute intracranial pathology is appreciated. Chronic atrophic and microischemic changes. Renal US 02/01: 1. Normal appearance of the kidneys without hydronephrosis. CXR 12/18: No acute abnormality. Markedly distended air-filled colon in the visualized upper abdomen. TTE: This is a very limited echocardiogram. Only partial visualization of the heart was possible. Left ventricle is normal size. It has probably normal or near normal contractility based on very limited views. I certainly cannot rule out even substantial wall motion abnormality. The left atrium appears grossly normal. Right-sided heart chambers and valves were not well seen. No pericardial effusion is noted, but even that could have been missed. Inferior vena cava was not seen. Aortic root, aortic arch, and abdominal aorta were not visualized. Doppler interrogation of the aortic valve reveals no insufficiency and mild gradient, peak gradient was 17 mmHg, the valve does appear sclerotic. Color Doppler imaging of the mitral valve reveals no obvious insufficiency. CONCLUSIONS: 1. Very limited echocardiogram with very poor acoustic windows. 2. Normal LV size with probably normal or near normal LV systolic function. Grade 1 diastolic dysfunction. 3. Prominent aortic sclerosis with likely mild aortic stenosis and no insufficiency. 4. Functionally competent mitral valve. 5. Inferior vena cava, right-sided chambers and valves were not seen. 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 Sepsis - 2/2 UTI, possible to also be 2/2 R foot ulcer - Was hypotensive and had leukocytosis at presentation that have resolved - Blood culture 02/01: 1 of 2 positive w/ staph hemolyticus, likely contaminant, repeat 02/02 BCx were negative x 2 - Urine culture 02/01 grew E. Coli, switched to oral keflex, day 6 of 7 of abx - Elevated ESR / CRP - downtrended s/p Metabolic acidosis: improved - Patient reports a history of diarrhea in his recent past - No documented diarrhea currently - Patient's bicarbonate is low again, so nephrology restarting bicarb gtt - Urine AG negative - Nephrology on consultation; we appreciate their input Syncope - likely 2/2 multifactorial etiology - Hypotension 2/2 sepsis i/s/o infection / Anemia - ECHO complete, see report above Macrocytic anemia - possibly 2/2 acute blood loss 2/2 GI bleed, possibly 2/2 hematuria, possibly exacerbated by recent nose bleed - Stool for occult blood positive in ER - s/p 3 unit PRBC. - H&H remains stable - Iron panel consistent with iron deficiency - B12 and folate are pending - c/w Protonix IV and Carafate Supra-therapeutic INR: resolved with holding warfarin and giving Vit K - s/p Vitamin K PO - continue warfarin s/p Thrombocytosis - possibly reactive to sepsis and anemia (SANYA) LYSSA on CKD3: 2/2 dehydration, resolving with hydration - Cr baseline of 1.3-1.6; Cr on admission of 2.7 - Creatinine continues to improve - Nephrology on consultation; we appreciate their input Hypernatremia: 2/2 dehydration, resolving with hydration - Improving - On Bicarbonate drip; c/w D5W with potassium - Nephrology on consultation; we appreciate their input Hypokalemia - Will provide additional supplementation Recurrent CVA - c/w Statin - c/w Coumadin - c/w ASA PVD - c/w Statin - c/w ASA NIDDM2 - c/w ISS and Levmir Hx of Seizures - c/w Keppra Depression - c/w Fluoxetine GI prophylaxis - c/w Protonix / Carafate (re: Positive stool for occult / Anemia) DVT prophylaxis - c/w warfarin Contact: - Daughter Yaz; Disposition: - Awaiting clinical improvement, PT/OT VS,Dieudonne, I+O VS, Dieudonne, I+O Laboratory Tests 02/07/21 05:59 Vital Signs Date Time Temp Pulse Resp B/P (MAP) Pulse Ox O2 Delivery O2 Flow Rate FiO2 02/07/21 06:00 98.0 105 20 112/72 (85) 94 Room Air 02/02/21 12:00 2.0 I&O- Last 24 Hours up to 6 AM 02/07/21 05:59 Intake Total 1900 ml Output Total 1350 ml Balance 550 ml VIDYA FERNANDES MD Feb 07, 2021 10:42
[2021-02-07] MEDS: SODIUM BICARBONATE 325 MG TAB PO SCH ×2 (13:28→21:20)
[2021-02-07 14:56] VITALS: BP 92/65
[2021-02-07] MEDS: WARFARIN SOD 1MG TAB PO SCH (18:23)
[2021-02-07] MEDS: LEVEMIR (INSULIN DETEMIR) 1 UNITS/0.01ML SC SCH (21:20)
[2021-02-07] MEDS: ATORVASTATIN 20 MG TAB PO SCH (21:20)
[2021-02-07 22:00] VITALS: BP 133/92
[2021-02-07] MEDS: IRON SUCROSE 200 MG in NS 100 ML IV SCH (22:44)
--- NOTE | 2021-02-07 23:07 | IPN ---
NEPHROLOGY PROGRESS NOTE DATE: 02/07/2021 SUBJECTIVE: Patient was seen and examined at the bedside today morning. He continues to be on I.V. fluid hydration. As reported by nursing staff, patient is more awake. He is starting to eat a little bit more now. Renal function is stable with a creatinine of 1.4 today. He is gradually getting acidotic again. OBJECTIVE: VITAL SIGNS: Temperature 97.4 degrees Fahrenheit, blood pressure 92/65, pulse 99, respiratory rate 18, saturating 95% on room air. INTAKE/OUTPUT: Urine output recorded as 2.3 liters yesterday. Weight in the bed scale is not available. PHYSICAL EXAMINATION: GENERAL: Patient is awake, alert and oriented x2, lying in bed, in no apparent distress. HEAD/NECK: Extraocular muscles intact. Pupils equally round and reactive to light. Mucous membranes are moist. Neck is supple. There is no significant JVD. CVS: S1, S2, regular rate. No edema of the bilateral lower extremities. RESPIRATORY: Clear to auscultation bilaterally. Bilateral equal air entry. No rales or rhonchi. ABDOMEN: Soft, positive bowel sounds, nontender. No organomegaly, MUSCULOSKELETAL: Chronic deformity of the feet is noted. DIETIST: Patient follows commands and moves right extremity. She has left hemiparesis. LABORATORY REVIEW: CBC showed WBC 8.7, hemoglobin 8.7, platelets 282,000. BMP showed sodium 140, potassium 4.1, chloride 113, bicarb 20, BUN 14, creatinine 1.4; it was 1.3 yesterday. CURRENT INPATIENT MEDICATIONS: Patient's medications were all reviewed by myself. He was given a dose of magnesium sulfate I.V. I have decreased his I.V. fluid to 60 cc an hour and patient has also been started on sodium bicarbonate 650 mg p.o. twice a day. ASSESSMENT AND PLAN: 1. Acute renal failure superimposed on chronic kidney disease: Patient continues to be on I.V. fluid, however, his oral intake is improving, so I.V. fluids have been decreased. Creatinine has been stable. 2. Hypernatremia: It has improved with I.V. Dextrose. Sodium level is within the normal range. 3. Hyperchloremic metabolic acidosis: Acidosis has today, oral sodium bicarbonate tablet has been restarted. If that does not help with acidosis, then Bicitra will be restarted. 4. Iron deficiency anemia: Hemoglobin level has dropped again. Patient will be given I.V. Venofer.
[2021-02-08 06:00] VITALS: BP 134/94
[2021-02-08] MEDS: PANTOPRAZOLE 40MG VIAL (C9113 PER 1) IV SCH ×2 (06:11→17:40)
[2021-02-08] MEDS: CEPHALEXIN 250MG CAPSULE PO SCH ×3 (06:11→17:40)
[2021-02-08] MEDS: SUCRALFATE 1 GM TAB PO SCH ×3 (06:11→21:53)
[2021-02-08 07:23] LABS: BASO % 0.5 % (0.0-1.0); EOS # 0.4 10^3/uL (0.0-0.5); EOS % 5.6 % (0.0-3.0); HEMATOCRIT 30.9 % (42.0-52.0); HEMOGLOBIN 9.2 g/dl (13.5-17.5); LYMPH # 1.8 10^3/uL (1.5-5.0); LYMPH % 23.1 % (24.0-44.0); MEAN CORPUSCULAR HEMOGLOBIN 28.1 pg (27.0-33.0); MEAN CORPUSCULAR HGB CONC 29.8 g/dl (32.0-36.5); MEAN CORPUSCULAR VOLUME 94.5 fl (80.0-96.0); MONO # 0.6 10^3/uL (0.0-0.8); MONO % 7.5 % (2.0-8.0); NEUTROPHILS # 4.9 10^3/uL (1.5-8.5); NEUTROPHILS % 61.5 % (36.0-66.0); PLATELET COUNT, AUTOMATED 297 10^3/uL (150-450); RED BLOOD COUNT 3.27 10^6/uL (4.30-6.10); WHITE BLOOD COUNT 7.9 10^3/uL (4.0-10.0)
[2021-02-08 07:35] LABS: INR 1.67; PROTHROMBIN TIME 20.1 SECONDS (12.5-14.3)
[2021-02-08 07:51] LABS: ALBUMIN 1.9 GM/DL (3.2-5.2); BILIRUBIN,TOTAL 0.4 MG/DL (0.2-1.0); CALCIUM LEVEL 8.3 MG/DL (8.8-10.2); CREATININE FOR GFR 1.5 MG/DL (0.70-1.30); GLOMERULAR FILTRATION RATE 48.6 (>42); POTASSIUM SERUM 3.8 MEQ/L (3.5-5.1); TOTAL PROTEIN 5.4 GM/DL (6.4-8.2)
[2021-02-08] MEDS: IRON SUCROSE 200 MG in NS 100 ML IV SCH (08:50)
[2021-02-08] MEDS: HumaLOG INSULIN (NovoLOG) PER UNIT SC SCH ×4 (08:53→20:18)
[2021-02-08] MEDS: FLUoxetine 20 MG CAP PO SCH (08:54)
[2021-02-08] MEDS: levETIRAcetam 250MG TABLET (KEPPRA) PO SCH ×2 (08:54→21:53)
[2021-02-08] MEDS: MAGNESIUM OXIDE 400MG TAB (MAG-OX) PO SCH ×2 (08:54→21:53)
[2021-02-08] MEDS: ASPIRIN 81 MG CHEW TABLET PO SCH (08:54)
[2021-02-08] MEDS: TAMSULOSIN 0.4 MG CAP PO SCH (08:54)
[2021-02-08] MEDS: SODIUM BICARBONATE 325 MG TAB PO SCH ×2 (08:54→21:52)
--- NOTE | 2021-02-08 09:28 | IPNPDOC ---
Text Note Date of Service The patient was seen on 02/08/21. NOTE Subjective: -No acute events -Denies any chest pain, shortness breath, palpitations or any abdominal pain. Objective: Vitals: See below General: No acute distress, AOx3 HEENT: NCAT, MMM, EOMI CVS: RRR, no m/r/g, +S1S2 Lungs: Air entry is fair bilaterally without evidence of wheezing, rhonchi or crackles Abdomen: Abdomen remains soft without distention or tenderness with normoactive bowel sounds Extremities: Right foot deformity noted with ulceration that appears clean w ithout drainage or surrounding erythema Neuro: Aox3, CN 3-12 intact, weak 4/5 throughout Labs: bicarb 21 K 3.8 Cr 1.5 Mag 2 Imaging: CT head 02/01: No acute intracranial pathology is appreciated. Chronic atrophic and microischemic changes. Renal US 02/01: 1. Normal appearance of the kidneys without hydronephrosis. CXR 12/18: No acute abnormality. Markedly distended air-filled colon in the visualized upper abdomen. TTE: This is a very limited echocardiogram. Only partial visualization of the heart was possible. Left ventricle is normal size. It has probably normal or near normal contractility based on very limited views. I certainly cannot rule out even substantial wall motion abnormality. The left atrium appears grossly normal. Right-sided heart chambers and valves were not well seen. No pericardial effusion is noted, but even that could have been missed. Inferior vena cava was not seen. Aortic root, aortic arch, and abdominal aorta were not visualized. Doppler interrogation of the aortic valve reveals no insufficiency and mild gradient, peak gradient was 17 mmHg, the valve does appear sclerotic. Color Doppler imaging of the mitral valve reveals no obvious insufficiency. CONCLUSIONS: 1. Very limited echocardiogram with very poor acoustic windows. 2. Normal LV size with probably normal or near normal LV systolic function. Grade 1 diastolic dysfunction. 3. Prominent aortic sclerosis with likely mild aortic stenosis and no insufficiency. 4. Functionally competent mitral valve. 5. Inferior vena cava, right-sided chambers and valves were not seen. 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 Sepsis - 2/2 UTI, possible to also be 2/2 R foot ulcer - Was hypotensive and had leukocytosis at presentation that have resolved - Blood culture 02/01: 1 of 2 positive w/ staph hemolyticus, likely contaminant, repeat 02/02 BCx were negative x 2 - Urine culture 02/01 grew E. Coli, switched to oral keflex, day 7 of 7 of abx - Elevated ESR / CRP - downtrended s/p Metabolic acidosis: improved - Patient reports a history of diarrhea in his recent past - No documented diarrhea currently - s/p bicarb gtt, now on BID sodium bicarb tabs - Urine AG negative - Nephrology on consultation; we appreciate their input Syncope - likely 2/2 multifactorial etiology - Hypotension 2/2 sepsis i/s/o infection / Anemia - ECHO complete, see report above Macrocytic anemia - possibly 2/2 acute blood loss 2/2 GI bleed, possibly 2/2 hematuria, possibly exacerbated by recent nose bleed - Stool for occult blood positive in ER - s/p 3 unit PRBC. - H&H remains stable - Iron panel consistent with iron deficiency, day 1 of 3 of Venofer - B12 and folate are pending - c/w Protonix IV and Carafate Supra-therapeutic INR: resolved with holding warfarin and giving Vit K - s/p Vitamin K PO - continue warfarin s/p Thrombocytosis - possibly reactive to sepsis and anemia (SANYA) LYSSA on CKD3: 2/2 dehydration, resolving with hydration - Cr baseline of 1.3-1.6; Cr on admission of 2.7 - Creatinine continues to improve, now within his baseline - Nephrology on consultation; we appreciate their input Hypernatremia: 2/2 dehydration, resolved with hydration - On D5W with potassium - Nephrology on consultation; we appreciate their input Hypokalemia - On supplementation per nephrology Recurrent CVA - c/w Statin - c/w Coumadin - c/w ASA PVD - c/w Statin - c/w ASA NIDDM2 - c/w ISS and Levmir Hx of Seizures - c/w Keppra Depression - c/w Fluoxetine GI prophylaxis - c/w Protonix / Carafate (re: Positive stool for occult / Anemia) DVT prophylaxis - c/w warfarin Contact: - Daughter Yaz; Disposition: - Awaiting clinical improvement, PT/OT VS,Dieudonne, I+O VS, Dieudonne, I+O Laboratory Tests 02/08/21 06:28 Vital Signs Date Time Temp Pulse Resp B/P (MAP) Pulse Ox O2 Delivery O2 Flow Rate FiO2 02/08/21 06:00 98.0 97 18 134/94 (107) 95 Room Air 02/02/21 12:00 2.0 I&O- Last 24 Hours up to 6 AM 02/08/21 06:00 Intake Total 1990 ml Balance 1990 ml VIDYA FERNANDES MD Feb 08, 2021 08:04
[2021-02-08 14:00] VITALS: BP 113/72
[2021-02-08] MEDS: POTASSIUM CHLORIDE INJ 40 MEQ in D5W 1,000 ML IV SCH (14:12)
[2021-02-08] MEDS: WARFARIN SOD 1MG TAB PO SCH (17:41)
--- NOTE | 2021-02-08 18:52 | IPN ---
NEPHROLOGY PROGRESS NOTE DATE: 02/08/2021 SUBJECTIVE: The patient was seen and examined at the bedside today morning. His IV fluids were decreased yesterday. He is currently on 60 mL an hour. He was started on bicarbonate tablets and his bicarbonate is stable. Renal function is also stable with a creatinine of 1.5 today. OBJECTIVE: VITAL SIGNS: Temperature is 97.9 degrees Fahrenheit, blood pressure 113/72, pulse is 98, respiratory rate of 18, saturating 96% on room air. INTAKE AND OUTPUT: Urine output is not recorded. He has incontinent voids. Weight in the bed scale is not available. PHYSICAL EXAMINATION: GENERAL APPEARANCE: The patient is awake, alert, oriented x3, laying in bed in no apparent distress. HEAD AND NECK: Extraocular muscles intact. Pupils are equally round and reactive to light. Mucous membranes are moist. Neck is supple. There is no jugular venous distention. CARDIOVASCULAR: S1, S2, regular rate. EXTREMITIES: No edema of the bilateral lower extremities. RESPIRATORY: Chest is clear to auscultation bilaterally. Bilaterally currently no rales or rhonchi. ABDOMEN: Soft, positive bowel sounds, nontender, no organomegaly. MUSCULOSKELETAL: Bilateral foot deformities noted. PROJECT ASSOCIATE: The patient is awake. Moves the right upper extremity. He has left sided weakness. LAB REVIEW: CBC showed a WBC count of 7.9, hemoglobin is 9.2, platelet count 297. BMP showed a sodium of 142, potassium 3.8, chloride 113, bicarbonate 21, BUN 25, creatinine is 1.5; it was 1.4 yesterday. CURRENT INPATIENT MEDICATIONS: The patient's medications were all reviewed by myself. He continues to be on oral sodium bicarbonate tablets. His IV fluids currently are 60 mL an hour. ASSESSMENT AND PLAN: 1. Acute renal failure superimposed on chronic kidney disease - The patient is being hydrated. His creatinine has been stable. It is 1.5 now. IV fluids were decreased yesterday. If creatinine stays stable, then IV fluids will be stopped tomorrow morning. 2. Hyperchloremic metabolic acidosis - The patient has been started on oral sodium bicarbonate. Bicarbonate level is within the acceptable range. 3. Iron deficiency anemia - The patient is getting Venofer. Hemoglobin level is 9.2 which is acceptable now. 4. Hypomagnesemia - The patient got magnesium sulfate. He is also on oral magnesium. Magnesium level is within the acceptable range now.
[2021-02-08] MEDS: ATORVASTATIN 20 MG TAB PO SCH (21:53)
[2021-02-08] MEDS: LEVEMIR (INSULIN DETEMIR) 1 UNITS/0.01ML SC SCH (21:53)
[2021-02-08 22:00] VITALS: BP 135/63
[2021-02-09 06:00] VITALS: BP 141/76
[2021-02-09] MEDS: SUCRALFATE 1 GM TAB PO SCH ×3 (06:16→20:24)
[2021-02-09] MEDS: PANTOPRAZOLE 40MG VIAL (C9113 PER 1) IV SCH (06:16)
[2021-02-09] MEDS: HumaLOG INSULIN (NovoLOG) PER UNIT SC SCH ×4 (08:27→20:31)
[2021-02-09] MEDS: POTASSIUM CHLORIDE INJ 40 MEQ in D5W 1,000 ML IV SCH (08:28)
[2021-02-09] MEDS: TAMSULOSIN 0.4 MG CAP PO SCH (08:28)
[2021-02-09] MEDS: FLUoxetine 20 MG CAP PO SCH (08:28)
[2021-02-09] MEDS: levETIRAcetam 250MG TABLET (KEPPRA) PO SCH ×2 (08:28→20:25)
[2021-02-09] MEDS: ASPIRIN 81 MG CHEW TABLET PO SCH (08:28)
[2021-02-09] MEDS: IRON SUCROSE 200 MG in NS 100 ML IV SCH (08:28)
[2021-02-09] MEDS: SODIUM BICARBONATE 325 MG TAB PO SCH ×2 (08:29→20:24)
[2021-02-09] MEDS: MAGNESIUM OXIDE 400MG TAB (MAG-OX) PO SCH ×2 (08:29→20:25)
--- NOTE | 2021-02-09 13:11 | IPNPDOC ---
Text Note Date of Service The patient was seen on 02/09/21. NOTE Subjective: -Denies any chest pain, shortness breath, palpitations or any abdominal pain. Objective: Vitals: See below General: No acute distress, AOx3 HEENT: NCAT, MMM, EOMI CVS: RRR, no m/r/g, +S1S2 Lungs: Air entry is fair bilaterally without evidence of wheezing, rhonchi or crackles Abdomen: Abdomen remains soft without distention or tenderness with normoactive bowel sounds Extremities: Right foot deformity noted with ulceration that appears clean without drainage or surrounding erythema Neuro: Aox3, CN 3-12 intact, weak /5 throughout Labs: reviewed Imaging: CT head 02/01: No acute intracranial pathology is appreciated. Chronic atrophic and microischemic changes. Renal US 02/01: 1. Normal appearance of the kidneys without hydronephrosis. CXR 12/18: No acute abnormality. Markedly distended air-filled colon in the visualized upper abdomen. TTE: This is a very limited echocardiogram. Only partial visualization of the heart was possible. Left ventricle is normal size. It has probably normal or near normal contractility based on very limited views. I certainly cannot rule out even substantial wall motion abnormality. The left atrium appears grossly normal. Right-sided heart chambers and valves were not well seen. No pericardial effusion is noted, but even that could have been missed. Inferior vena cava was not seen. Aortic root, aortic arch, and abdominal aorta were not visualized. Doppler interrogation of the aortic valve reveals no insufficiency and mild gradient, peak gradient was 17 mmHg, the valve does appear sclerotic. Color Doppler imaging of the mitral valve reveals no obvious insufficiency. CONCLUSIONS: 1. Very limited echocardiogram with very poor acoustic windows. 2. Normal LV size with probably normal or near normal LV systolic function. Grade 1 diastolic dysfunction. 3. Prominent aortic sclerosis with likely mild aortic stenosis and no insufficiency. 4. Functionally competent mitral valve. 5. Inferior vena cava, right-sided chambers and valves were not seen. 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 Sepsis - 2/2 UTI, possible to also be 2/2 R foot ulcer - Was hypotensive and had leukocytosis at presentation that have resolved - Blood culture 02/01: 1 of 2 positive w/ staph hemolyticus, likely contaminant, repeat 02/02 BCx were negative x 2 - Urine culture 02/01 grew E. Coli, switched to oral keflex, s/p 7d of antibiotics, ended 02/08/2021 - Elevated ESR / CRP - downtrended s/p Metabolic acidosis: improved - Patient reports a history of diarrhea in his recent past - No documented diarrhea currently - s/p bicarb gtt, now on BID sodium bicarb tabs - Urine AG negative - Nephrology on consultation; we appreciate their input Syncope - likely 2/2 multifactorial etiology - Hypotension 2/2 sepsis i/s/o infection / Anemia - ECHO complete, see report above Macrocytic anemia - possibly 2/2 acute blood loss 2/2 GI bleed, possibly 2/2 hem aturia, possibly exacerbated by recent nose bleed - Stool for occult blood positive in ER - s/p 3 unit PRBC. - H&H remains stable - Iron panel consistent with iron deficiency, day 1 of 3 of Venofer - B12 and folate are pending - c/w Protonix IV and Carafate Supra-therapeutic INR: resolved with holding warfarin and giving Vit K - s/p Vitamin K PO - continue warfarin s/p Thrombocytosis - possibly reactive to sepsis and anemia (SANYA) LYSSA on CKD3: 2/2 dehydration, resolving with hydration - Cr baseline of 1.3-1.6; Cr on admission of 2.7 - Creatinine continues to improve, now within his baseline - Nephrology on consultation; we appreciate their input Hypernatremia: 2/2 dehydration, resolved with hydration - On D5W with potassium - Nephrology on consultation; we appreciate their input Hypokalemia - On supplementation per nephrology Recurrent CVA - c/w Statin - c/w Coumadin - c/w ASA PVD - c/w Statin - c/w ASA NIDDM2 - c/w ISS and Levmir Hx of Seizures - c/w Keppra Depression - c/w Fluoxetine GI prophylaxis - c/w Protonix / Carafate (re: Positive stool for occult / Anemia) DVT prophylaxis - c/w warfarin Contact: - Daughter Yaz; Disposition: - Awaiting clinical improvement, PT/OT, likely to be discharged home on 02/10 with 22/03 per baseline VS,Fishbone, I+O VS, Fishbone, I+O Vital Signs Date Time Temp Pulse Resp B/P (MAP) Pulse Ox O2 Delivery O2 Flow Rate FiO2 02/09/21 06:00 98.6 103 18 141/76 (97) 97 Room Air l I&O- Last 24 Hours up to 6 AM 02/09/21 06:00 Intake Total 1340 ml Output Total 0 ml Balance 1340 ml VIDYA FERNANDES MD Feb 09, 2021 13:11
[2021-02-09 14:00] VITALS: BP 111/74
[2021-02-09] MEDS: WARFARIN SOD 2MG TAB PO SCH (17:34)
[2021-02-09 20:23] VITALS: BP 110/71
[2021-02-09] MEDS: ATORVASTATIN 20 MG TAB PO SCH (20:24)
[2021-02-09] MEDS: LEVEMIR (INSULIN DETEMIR) 1 UNITS/0.01ML SC SCH (20:25)
[2021-02-10 06:00] VITALS: BP 118/69
[2021-02-10] MEDS: SUCRALFATE 1 GM TAB PO SCH ×2 (06:19→13:42)
[2021-02-10 06:51] LABS: BASO # 0.1 10^3/uL (0.0-0.2); BASO % 0.9 % (0.0-1.0); EOS # 0.5 10^3/uL (0.0-0.5); EOS % 5.4 % (0.0-3.0); HEMATOCRIT 31.2 % (42.0-52.0); HEMOGLOBIN 9.3 g/dl (13.5-17.5); LYMPH # 2.2 10^3/uL (1.5-5.0); LYMPH % 23.3 % (24.0-44.0); MEAN CORPUSCULAR HEMOGLOBIN 28.5 pg (27.0-33.0); MEAN CORPUSCULAR HGB CONC 29.8 g/dl (32.0-36.5); MEAN CORPUSCULAR VOLUME 95.7 fl (80.0-96.0); MONO # 0.7 10^3/uL (0.0-0.8); MONO % 7.1 % (2.0-8.0); NEUTROPHILS # 5.8 10^3/uL (1.5-8.5); NEUTROPHILS % 62.1 % (36.0-66.0); PLATELET COUNT, AUTOMATED 316 10^3/uL (150-450); RED BLOOD COUNT 3.26 10^6/uL (4.30-6.10); WHITE BLOOD COUNT 9.3 10^3/uL (4.0-10.0)
[2021-02-10 07:05] LABS: INR 1.74; PROTHROMBIN TIME 20.7 SECONDS (12.5-14.3)
[2021-02-10 07:16] LABS: CALCIUM LEVEL 8.5 MG/DL (8.8-10.2); CREATININE FOR GFR 1.72 MG/DL (0.70-1.30); GLOMERULAR FILTRATION RATE 41.5 (>42); PHOSPHORUS LEVEL 2.7 MG/DL (2.5-4.9); POTASSIUM SERUM 3.7 MEQ/L (3.5-5.1)
[2021-02-10] MEDS: HumaLOG INSULIN (NovoLOG) PER UNIT SC SCH ×2 (07:30→12:11)
[2021-02-10] MEDS: TAMSULOSIN 0.4 MG CAP PO SCH (08:17)
[2021-02-10] MEDS: MAGNESIUM OXIDE 400MG TAB (MAG-OX) PO SCH (08:17)
[2021-02-10] MEDS: FLUoxetine 20 MG CAP PO SCH (08:17)
[2021-02-10] MEDS: SODIUM BICARBONATE 325 MG TAB PO SCH (08:18)
[2021-02-10] MEDS: ASPIRIN 81 MG CHEW TABLET PO SCH (08:18)
[2021-02-10] MEDS: levETIRAcetam 250MG TABLET (KEPPRA) PO SCH (08:18)
[2021-02-10] MEDS ORDERED: SUCR1TA PO (08:23)
[2021-02-10] MEDS ORDERED: PANT40TA29 PO (08:23)
[2021-02-10] MEDS ORDERED: SODI325T9 PO (08:23)
[2021-02-10] MEDS ORDERED: MAGN400T2 PO (08:23)
--- NOTE | 2021-02-10 08:58 | DS.PDOC ---
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 HISTORY OF PRESENT ILLNESS: 75-year-old M with a history of CVA with residual left-sided hemiparesis on warfarin, CKD, insulin-dependent diabetic who was recently admitted with Covid 19 who presented to the ED with his daughter Yaz because of a witnessed syncopal episode. The episode occured while he was seated on the toilet and he proceeded to lean forward and lose consciousness for a few minutes while she was standing next to him and was able to support him as he slumped over and he never fell or hit his head. By the time he was in the ED his mentation was back to his normal self. He reported feeling weak and tired but denied any other complaints. The daughter did report that on his recent data blood work at their PCP office, INR was elevated to above 8 and she held the warfarin for two day and had resumed it and he had a nosebleed. HOSPITAL COURSE: In the ED patient's blood pressure dropped to around 80/30 he was placed in Trendelenburg position and ordered 2 units of blood and given 1 dose of ceftriaxone for sepsis 2/2 UTI. Blood cultures were collected. Stool guaiac was positive and he was found to be dehydrated as well. The rest of his hospital course by issue was as below: Sepsis - 2/2 UTI, possible to also be 2/2 R foot ulcer - Was hypotensive and had leukocytosis at presentation that have resolved - Blood culture 02/01: 1 of 2 positive w/ staph hemolyticus, likely contaminant, repeat 02/02 BCx were negative x 2 - Urine culture 02/01 grew E. Coli, switched to oral keflex, s/p 7d of antibiotics, ended 02/08/2021 - Elevated ESR / CRP - downtrended s/p Metabolic acidosis: improved - Patient reported a history of diarrhea in his recent past - No documented diarrhea while inpatient - Nephrology was consulted and he is s/p bicarb gtt, now on BID sodium bicarb tabs that he will discharged on with plan for nephrology followup in the ou tpatient setting. Syncope - likely 2/2 multifactorial etiology - Hypotension 2/2 sepsis i/s/o infection / Anemia /dehydration - ECHO complete, see report below Macrocytic anemia - possibly 2/2 acute blood loss 2/2 GI bleed, possibly exacerbated by recent nose bleed - Stool for occult blood positive in ER - s/p 3 unit PRBC - H&H remained stable after transfusions - Iron panel consistent with iron deficiency, received 3 doses of IV Venofer - Started on Protonix and Carafate that he will be discharged on. Supra-therapeutic INR: resolved with holding warfarin and giving Vit K - s/p Vitamin K PO - Restarted on his home warfarin and doing well s/p Thrombocytosis - possibly reactive to sepsis and anemia (SANYA) LYSSA on CKD3: 2/2 dehydration, resolved with hydration - Cr baseline of 1.3-1.6; Cr on admission of 2.7 Hypernatremia: 2/2 dehydration, resolved with hydration Hypokalemia - resolved with supplementation History of Recurrent CVA - c/w Statin - c/w Coumadin - c/w ASA History of PVD - c/w Statin - c/w ASA NIDDM2 - c/w ISS and Levemir in place of his lantus Hx of Seizures - c/w Keppra Depression - c/w Fluoxetine He is now being discharged home with PCP and nephrology follow up within 7d. DISCHARGE MEDICATIONS: Please see below. ALLERGIES: Please see below. PHYSICAL EXAMINATION ON DISCHARGE: VITAL SIGNS: Please see below. General: No acute distress, AOx3 HEENT: NCAT, MMM, EOMI CVS: RRR, no m/r/g, +S1S2 Lungs: Air entry is fair bilaterally without evidence of wheezing, rhonchi or crackles Abdomen: Abdomen remains soft without distention or tenderness with normoactive bowel sounds Extremities: Right foot deformity noted with ulceration that appears clean w ithout drainage or surrounding erythema Neuro: Aox3, CN 3-12 intact, weak 4/5 throughout LABORATORY DATA: Please see below. IMAGING: CT head 02/01: No acute intracranial pathology is appreciated. Chronic atrophic and microischemic changes. Renal US 02/01: 1. Normal appearance of the kidneys without hydronephrosis. CXR 12/18: No acute abnormality. Markedly distended air-filled colon in the visualized upper abdomen. TTE: This is a very limited echocardiogram. Only partial visualization of the heart was possible. Left ventricle is normal size. It has probably normal or near normal contractility based on very limited views. I certainly cannot rule out even substantial wall motion abnormality. The left atrium appears grossly normal. Right-sided heart chambers and valves were not well seen. No pericardial effusion is noted, but even that could have been missed. Inferior vena cava was not seen. Aortic root, aortic arch, and abdominal aorta were not visualized. Doppler interrogation of the aortic valve reveals no insufficiency and mild gradient, peak gradient was 17 mmHg, the valve does appear sclerotic. Color Doppler imaging of the mitral valve reveals no obvious insufficiency. CONCLUSIONS: 1. Very limited echocardiogram with very poor acoustic windows. 2. Normal LV size with probably normal or near normal LV systolic function. Grade 1 diastolic dysfunction. 3. Prominent aortic sclerosis with likely mild aortic stenosis and no insufficiency. 4. Functionally competent mitral valve. 5. Inferior vena cava, right-sided chambers and valves were not seen. PROGNOSIS: Good ACTIVITY: As tolerated DIET: mechanically soft consistent carb diet DISCHARGE PLAN: Home, family declined services, has 24h care. With GP and nephrology follow up DISPOSITION: Home, family declined services, has 24h care. DISCHARGE INSTRUCTIONS: Home, family declined services, has 24h care. with GP and nephrology follow up. ITEMS TO FOLLOWUP ON ON OUTPATIENT: CKD Wound care clinic follow up per baseline GP follow up DISCHARGE CONDITION: Stable TIME SPENT ON DISCHARGE: 56 minutes. Vital Signs/I&Os Vital Signs Date Time Temp Pulse Resp B/P (MAP) Pulse Ox O2 Delivery O2 Flow Rate FiO2 02/10/21 06:00 98.6 109 18 118/69 (85) 95 Room Air I&O- Last 24 Hours up to 6 AM 02/10/21 06:00 Intake Total 1000 ml Balance 1000 ml Laboratory Data Labs 24H Laboratory Tests 2 02/10/21 06:31: Immature Granulocyte % (Auto) 1.2, Neutrophils (%) (Auto) 62.1, Lymphocytes (%) (Auto) 23.3L, Monocytes (%) (Auto) 7.1, Eosinophils (%) (Auto) 5.4H, Basophils (%) (Auto) 0.9, Neutrophils # (Auto) 5.8, Lymphocytes # (Auto) 2.2, Monocytes # (Auto) 0.7, Eosinophils # (Auto) 0.5, Basophils # (Auto) 0.1, Nucleated Red Blood Cells % (auto) 0.0, Prothrombin Time 20.7H, Prothromb Time International Ratio 1.74, Anion Gap 7L, Glomerular Filtration Rate 41.5L, Calcium Level 8.5L, Phosphorus Level 2.7, Albumin 2.0L CBC/BMP Laboratory Tests 02/10/21 06:31 Microbiology Microbiology 02/02/21 Blood Culture - Final, Complete NO GROWTH AFTER 5 DAYS 02/02/21 Blood Culture - Final, Complete NO GROWTH AFTER 5 DAYS 02/01/21 Blood Culture - Final, Complete NO GROWTH AFTER 5 DAYS 02/01/21 Blood Culture - Final, Complete Staphylococcus Haemolyticus 02/01/21 Urine Culture - Final, Complete Escherichia Coli Discharge Medications Scheduled Ascorbic Acid (Vitamin C) 500 Mg Tablet, 500 MG PO DAILY, (Reported) Aspirin (Aspirin EC) 81 Mg Tablet.dr, 81 MG PO DAILY, (Reported) Atorvastatin Calcium (Atorvastatin Calcium) 40 Mg Tablet, 40 MG PO QHS, (Reported) Baclofen (Baclofen) 10 Mg Tablet, 10 MG PO TID, (Reported) Ergocalciferol (Vitamin D2) (Vitamin D2) 50,000 Units Cap, 50,000 UNITS PO Q2WK, (Reported) EVERY OTHER WEDNESDAY Ferrous Sulfate (Ferrous Sulfate) 325 Mg Tablet, 325 MG PO DAILY, (Reported) Fluoxetine Hcl (Fluoxetine HCl) 20 Mg Capsule, 20 MG PO DAILY, (Reported) Insulin Glargine,Hum.rec.anlog (Lantus Solostar) 100 Unit/1 Ml Insuln.pen, 16 UNITS SC QHS, (Reported) Insulin Human Lispro (Humalog) 100 Unit/1 Ml Vial, 1 DOSE SC AC, (Reported) PER SLIDING SCALE Levetiracetam (Keppra) 500 Mg Tablet, 500 MG PO BID, (Reported) Lisinopril (Lisinopril) 10 Mg Tablet, 10 MG PO BID, (Reported) Magnesium Oxide (Magnesium Oxide) 400 Mg Tablet, 800 MG PO BID Metformin HCl (Metformin HCl) 500 Mg Tablet, 500 MG PO BID, (Reported) Metoprolol Tartrate (Metoprolol Tartrate) 25 Mg Tablet, 25 MG PO BID, (Reported) Multivitamins (Thera M Plus Tablet) 1 Each Tablet, 1 TAB PO DAILY, (Reported) Pantoprazole Sodium (Pantoprazole Sodium) 40 Mg Tablet.dr, 40 MG PO DAILY Potassium Chloride (Potassium Chloride) 10 Meq Tab.er.prt, 10 MEQ PO WM, (Reported) Sodium Bicarbonate (Sodium Bicarbonate) 650 Mg Tablet, 650 MG PO BID, (Reported) Sodium Bicarbonate (Sodium Bicarbonate) 325 Mg Tablet, 650 MG PO BID Sucralfate (Sucralfate) 1 Gm Tablet, 1 GM PO Q8H Tamsulosin HCl (Flomax) 0.4 Mg Capsule, 0.4 MG PO DAILY, (Reported) Vitamin B Complex (Vitamin B Complex) 1 Each Tablet, 1 TAB PO DAILY, (Reported) Warfarin Sodium (Warfarin Sodium) 1 Mg Tablet, 1 MG PO 5XW, (Reported) WEDNESDAY, WEDNESDAY, WEDNESDAY, WEDNESDAY AND WEDNESDAY AT 1700 Warfarin Sodium (Warfarin Sodium) 2 Mg Tablet, 2 MG PO 2XWK, (Reported) WEDNESDAY AND WEDNESDAY AT 1700 Miscellaneous Medications [med rec comment ] , (Reported) unable to verify with pt use last office visit on 01/14/21 Allergies Coded Allergies: No Known Allergies (Unverified , 12/17/20) VIDYA FERNANDES MD Feb 10, 2021 08:58
[2021-02-10] MEDS ORDERED: PANTOPRAZOLE 40MG TAB (PROTONIX) PO SCH (09:00)
--- NOTE | 2021-02-10 10:23 | IPN ---
PROGRESS NOTE DATE: 02/09/2021 SUBJECTIVE: The patient was seen and examined at the bedside today morning. He was getting to eat his breakfast when I saw him. His IV fluids were decreased yesterday. Renal function is stable. Acidosis is getting better. OBJECTIVE: VITAL SIGNS: Temperature is 99.1 degrees Fahrenheit, blood pressure is 111/67, pulse is 104, respiratory 18, saturating 97% on room air. INTAKE AND OUTPUT: Urine output is not recorded. Patient has incontinent voids. Weight on the bed scale is not available. GENERAL: Patient is awake, alert and oriented x3, sitting up in the bed, in no apparent distress. HEAD AND NECK: Extraocular muscles intact. Pupils equally round and reactive to light. Mucous membranes are moist. Neck is supple. There is no JVD. CARDIOVASCULAR: S1 and S2, regular rate. No edema of the bilateral lower extremities. RESPIRATORY: Chest is clear to auscultation bilaterally. Bilateral equal air entry. No rales or rhonchi. ABDOMEN: Soft, positive bowel sounds, nontender. No organomegaly. MUSCULOSKELETAL: Bilateral foot deformity is noted, right is worse than left. CLERICAL GRADER: Patient has left sided weakness. LABORATORY DATA: CBC showed a WBC of 7.9, hemoglobin 9.2 and that is from yesterday. BMP is also from yesterday with a creatinine of 1.5. CURRENT INPATIENT MEDICATIONS: Patient's medications were all reviewed by myself. I have stopped his IV fluid hydration, his IV Venofer I have also stopped. ASSESSMENT AND PLAN: 1. Acute renal failure, it was secondary to dehydration. Patient is able to take diet orally now. IV fluids are being stopped. 2. Metabolic acidosis. Patient continues to be on oral sodium bicarbonate level. Acidosis is resolving. 3. Hypernatremia, it has improved after IV fluid hydration.
--- NOTE | 2021-02-10 11:28 | IPNPDOC ---
Text Note Date of Service The patient was seen on 02/10/21. NOTE Subjective: -Denies any chest pain, shortness breath, palpitations or any abdominal pain. Objective: Vitals: See below General: No acute distress, AOx3 HEENT: NCAT, MMM, EOMI CVS: RRR, no m/r/g, +S1S2 Lungs: Air entry is fair bilaterally without evidence of wheezing, rhonchi or crackles Abdomen: Abdomen remains soft without distention or tenderness with normoactive bowel sounds Extremities: Right foot deformity noted with ulceration that appears clean without drainage or surrounding erythema Neuro: Aox3, CN 3-12 intact, weak 4/5 throughout Labs: reviewed bicarb 24 Cr 1.72 Imaging: CT head 02/01: No acute intracranial pathology is appreciated. Chronic atrophic and mi croischemic changes. Renal US 02/01: 1. Normal appearance of the kidneys without hydronephrosis. CXR 12/18: No acute abnormality. Markedly distended air-filled colon in the visualized upper abdomen. TTE: This is a very limited echocardiogram. Only partial visualization of the heart was possible. Left ventricle is normal size. It has probably normal or near normal contractility based on very limited views. I certainly cannot rule out even substantial wall motion abnormality. The left atrium appears grossly normal. Right-sided heart chambers and valves were not well seen. No pericardial effusion is noted, but even that could have been missed. Inferior vena cava was not seen. Aortic root, aortic arch, and abdominal aorta were not visualized. Doppler interrogation of the aortic valve reveals no insufficiency and mild gradient, peak gradient was 17 mmHg, the valve does appear sclerotic. Color Doppler imaging of the mitral valve reveals no obvious insufficiency. CONCLUSIONS: 1. Very limited echocardiogram with very poor acoustic windows. 2. Normal LV size with probably normal or near normal LV systolic function. Grade 1 diastolic dysfunction. 3. Prominent aortic sclerosis with likely mild aortic stenosis and no insufficiency. 4. Functionally competent mitral valve. 5. Inferior vena cava, right-sided chambers and valves were not seen. 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 Sepsis - 2/2 UTI, possible to also be 2/2 R foot ulcer - Was hypotensive and had leukocytosis at presentation that have resolved - Blood culture 02/01: 1 of 2 positive w/ staph hemolyticus, likely contaminant, repeat 02/02 BCx were negative x 2 - Urine culture 02/01 grew E. Coli, switched to oral keflex, s/p 7d of antibiotics, ended 02/08/2021 - Elevated ESR / CRP - downtrended s/p Metabolic acidosis: improved - Patient reports a history of diarrhea in his recent past - No documented diarrhea currently - s/p bicarb gtt, now on BID sodium bicarb tabs - Urine AG negative - Nephrology on consultation; we appreciate their input Syncope - likely 2/2 multifactorial etiology - Hypotension 2/2 sepsis i/s/o infection / Anemia - ECHO complete, see report above Macrocytic anemia - possibly 2/2 acute blood loss 2/2 GI bleed, possibly 2/2 hematuria, possibly exacerbated by recent nose bleed - Stool for occult blood positive in ER - s/p 3 unit PRBC. - H&H remains stable - Iron panel consistent with iron deficiency, day 1 of 3 of Venofer - B12 and folate are pending - c/w Protonix IV and Carafate Supra-therapeutic INR: resolved with holding warfarin and giving Vit K - s/p Vitamin K PO - continue warfarin s/p Thrombocytosis - possibly reactive to sepsis and anemia (SANYA) LYSSA on CKD3: 2/2 dehydration, resolving with hydration - Cr baseline of 1.3-1.6; Cr on admission of 2.7 - Creatinine continues to improve, now within his baseline - Nephrology on consultation; we appreciate their input Hypernatremia: 2/2 dehydration, resolved with hydration - On D5W with potassium - Nephrology on consultation; we appreciate their input Hypokalemia - On supplementation per nephrology Recurrent CVA - c/w Statin - c/w Coumadin - c/w ASA PVD - c/w Statin - c/w ASA NIDDM2 - c/w ISS and Levmir Hx of Seizures - c/w Keppra Depression - c/w Fluoxetine GI prophylaxis - c/w Protonix / Carafate (re: Positive stool for occult / Anemia) DVT prophylaxis - c/w warfarin Contact: - Daughter Yaz; Disposition: -To be discharged home with 22/03 per baseline VS,Dieudonne, I+O VS, Dieudonne, I+O Laboratory Tests 02/10/21 06:31 Vital Signs Date Time Temp Pulse Resp B/P (MAP) Pulse Ox O2 Delivery O2 Flow Rate FiO2 02/10/21 06:00 98.6 109 18 118/69 (85) 95 Room Air I&O- Last 24 Hours up to 6 AM 02/10/21 06:00 Intake Total 1000 ml Balance 1000 ml VIDYA FERNANDES MD Feb 10, 2021 08:16
[2021-02-10 14:00] VITALS: BP 127/75
--- NOTE | 2021-02-10 15:49 | IPN ---
NEPHROLOGY PROGRESS NOTE DATE: 02/10/2021 SUBJECTIVE: Mr. Monahan is seen and examined this morning at the bedside. He is discharge pending. He offers no complaints. He denies any shortness of breath, lightheadedness or dizziness. His renal function is stable at his usual baseline and his electrolytes have normalized, and he is discharge pending later today. OBJECTIVE: VITAL SIGNS: Temperature 98.6, pulse 109, respiratory rate 18, blood pressure 118/69, saturating 95% on room air. INTAKE AND OUTPUT: Intake yesterday was 980. Weight in the bed scale today is not recorded. PHYSICAL EXAMINATION: GENERAL APPEARANCE: The patient is seen sitting in the chair, awake and alert. His legs are elevated. He is oriented to person and place and situation. HEENT: His tongue is moist. His neck is supple. NECK: His jugular veins are not elevated. HEART: Regular. S1, S2, there is no leg edema. LUNGS: Symmetric air entry. No crackles or rales. He is comfortable on room air. ABDOMEN: Soft and nontender. EXTREMITIES: Negative for edema. There is some muscle wasting. NEUROLOGICAL: He is cooperative with physical exam and answers simple questions appropriately and is oriented. SKIN: Warm and dry. LABORATORY STUDIES: Sodium 142, potassium 3.7, bicarbonate 24, BUN 10, creatinine 1.7, albumin 2.0, hemoglobin 9.3, platelet count 316. CURRENT INPATIENT MEDICATIONS: The patient's medications were all reviewed by myself and I note he was started on oral Protonix and IV Protonix was stopped. His remainder of medications are unchanged as compared to the past 2 days. PROBLEMS: 1. Chronic kidney disease stage 3 baseline creatinine appears to be in the mid to high 1's on review of prior labs. His renal imaging on this admission had no acute findings. His renal function today is stable, within his baseline range. He is suitable for discharge with follow up in the Nephrology office. 2. Metabolic acidosis it has improved nicely with sodium bicarbonate supplementation and he can be discharged on sodium bicarbonate tabs and we will adjust the dose as needed in the outpatient setting. 3. Status post hypernatremia his peak sodium level on this admission was 154. He is now normal natremic with sodium of 142 on the latest labs. 4. Hypomagnesemia his magnesium levels have much improved. He is receiving oral supplementation. 5. Status post hypokalemia he received potassium supplementation and his potassium levels are now suitable with 3.7 on the latest labs. He is not receiving any potassium supplements now. 6. Disposition - The patient had multiple electrolyte abnormalities on this admission. He will need to follow up in the Nephrology office for a repeat check of his electrolytes. He is otherwise okay for discharge.
== END 2021-02-10 15:00 | disposition home or self-care (01) | DRG 872 ==
LOC: M ED 01:30 → M ED INP 05:18 → ENRESERV 05:55 → M PCU 06:20 → M MS5PR 02-05 18:20
PROVIDERS: ADMIT Family Medicine; ATTEND Internal Medicine
PROC: 30233N1 Transfusion of Nonautologous Red Blood Cells into Peripheral Vein, Percutaneous Approach (ICD-10-PCS; principal; 2021-02-01)
DX: A41.9 Sepsis, unspecified organism (principal); I69.354 Hemiplegia and hemiparesis following cerebral infarction affecting left non-dominant side; N39.0 Urinary tract infection, site not specified; K92.2 Gastrointestinal hemorrhage, unspecified; D62 Acute posthemorrhagic anemia; N17.9 Acute kidney failure, unspecified; E87.2 Acidosis; E87.0 Hyperosmolality and hypernatremia; L97.419 Non-pressure chronic ulcer of right heel and midfoot with unspecified severity; K59.39 Other megacolon; E11.51 Type 2 diabetes mellitus with diabetic peripheral angiopathy without gangrene; E78.5 Hyperlipidemia, unspecified; N18.30 Chronic kidney disease, stage 3 unspecified; I12.9 Hypertensive chronic kidney disease with stage 1 through stage 4 chronic kidney disease, or unspecified chronic kidney disease; E11.22 Type 2 diabetes mellitus with diabetic chronic kidney disease; D50.9 Iron deficiency anemia, unspecified; E87.6 Hypokalemia; D63.1 Anemia in chronic kidney disease; E11.621 Type 2 diabetes mellitus with foot ulcer; B96.20 Unspecified Escherichia coli [E. coli] as the cause of diseases classified elsewhere; E11.610 Type 2 diabetes mellitus with diabetic neuropathic arthropathy; R55 Syncope and collapse; I69.398 Other sequelae of cerebral infarction; R56.9 Unspecified convulsions; F32.9 Major depressive disorder, single episode, unspecified; Z79.82 Long term (current) use of aspirin; Z86.16 Personal history of COVID-19; Z87.891 Personal history of nicotine dependence; Z79.4 Long term (current) use of insulin; Z79.01 Long term (current) use of anticoagulants; Z79.899 Other long term (current) drug therapy

== ENCOUNTER → 2021-02-18 | Outpatient (REF) | payer MEDICARE ==
[~2021-02-18] MED LIST changes: +ERGO500029 PO; +MAGN400T2 PO; +PANT40TA29 PO; +SUCR1TA PO; -VITA50005 PO; +med rec comment
== END ==
LOC: M LAB REF 18:53
PROVIDERS: ATTEND Internal Medicine Nephrology
DX: N39.0 Urinary tract infection, site not specified (principal)

== ENCOUNTER → 2021-03-05 | Outpatient (CLI) | payer MEDICARE ==
[2021-03-05 10:05] LABS: INR 1.82; PROTHROMBIN TIME 21.5 SECONDS (12.5-14.3)
[2021-03-05 10:22] LABS: CALCIUM LEVEL 8.9 MG/DL (8.8-10.2); CREATININE FOR GFR 1.59 MG/DL (0.70-1.30); GLOMERULAR FILTRATION RATE 45.4 (>42); POTASSIUM SERUM 3.4 MEQ/L (3.5-5.1)
== END ==
LOC: M WUC 08:21
PROVIDERS: ATTEND Physician Assistant Medical
DX: I63.9 Cerebral infarction, unspecified (principal); N18.32 Chronic kidney disease, stage 3b; E87.6 Hypokalemia; Z79.01 Long term (current) use of anticoagulants

== ENCOUNTER → 2021-03-17 | Outpatient (CLI) | payer MEDICARE ==
[2021-03-17 12:58] LABS: INR 1.65; PROTHROMBIN TIME 19.9 SECONDS (12.5-14.3)
[2021-03-17 13:05] LABS: CREATININE FOR GFR 1.64 MG/DL (0.70-1.30); GLOMERULAR FILTRATION RATE 43.8 (>42)
[2021-03-17 13:06] LABS: CALCIUM LEVEL 9.1 MG/DL (8.8-10.2); POTASSIUM SERUM 3.4 MEQ/L (3.5-5.1)
== END ==
LOC: M WUC 08:54
PROVIDERS: ATTEND Physician Assistant Medical
DX: N18.32 Chronic kidney disease, stage 3b (principal); Z51.81 Encounter for therapeutic drug level monitoring; Z79.899 Other long term (current) drug therapy

== ENCOUNTER → 2021-03-20 | Outpatient (REF) | payer MEDICARE | LOC: M LAB REF 17:29 | PROVIDERS: ATTEND Internal Medicine Nephrology | DX: N18.31 Chronic kidney disease, stage 3a (principal) ==

== ENCOUNTER → 2021-03-31 | Outpatient (CLI) | payer MEDICARE ==
[2021-03-31 14:35] LABS: HEMOGLOBIN A1c 5.4 %
[2021-03-31 14:40] LABS: INR 1.42; PROTHROMBIN TIME 17.8 SECONDS (12.7-14.5)
[2021-03-31 14:47] LABS: CALCIUM LEVEL 9.4 MG/DL (8.8-10.2); CREATININE FOR GFR 1.64 MG/DL (0.70-1.30); GLOMERULAR FILTRATION RATE 43.8 (>42); POTASSIUM SERUM 4.5 MEQ/L (3.5-5.1)
== END ==
LOC: M PLALAB 10:28
PROVIDERS: ATTEND Physician Assistant Medical
DX: Z51.81 Encounter for therapeutic drug level monitoring (principal); N18.32 Chronic kidney disease, stage 3b; E11.9 Type 2 diabetes mellitus without complications; I63.9 Cerebral infarction, unspecified

== ENCOUNTER → 2021-04-15 | Outpatient (CLI) | payer MEDICARE ==
[2021-04-15 11:34] LABS: INR 2.14; PROTHROMBIN TIME 24.3 SECONDS (12.7-14.5)
[2021-04-15 11:42] LABS: CALCIUM LEVEL 9.1 MG/DL (8.8-10.2); CREATININE FOR GFR 1.84 MG/DL (0.70-1.30); GLOMERULAR FILTRATION RATE 38.4 (>42); POTASSIUM SERUM 3.8 MEQ/L (3.5-5.1)
== END ==
LOC: M WUC 08:38
PROVIDERS: ATTEND Physician Assistant Medical
DX: I63.9 Cerebral infarction, unspecified (principal); E87.6 Hypokalemia; Z79.01 Long term (current) use of anticoagulants

== ENCOUNTER → 2021-05-20 | Outpatient (CLI) | payer MEDICARE ==
[2021-05-20 10:59] LABS: INR 2.16; PROTHROMBIN TIME 24.5 SECONDS (12.7-14.5)
[2021-05-20 11:18] LABS: CALCIUM LEVEL 9.3 MG/DL (8.8-10.2); CREATININE FOR GFR 1.9 MG/DL (0.70-1.30); POTASSIUM SERUM 4.5 MEQ/L (3.5-5.1)
== END ==
LOC: M PLALAB 09:01
PROVIDERS: ATTEND Physician Assistant Medical
DX: Z79.899 Other long term (current) drug therapy (principal); Z79.01 Long term (current) use of anticoagulants

== ENCOUNTER → 2021-06-05 | Outpatient (REF) | payer MEDICARE | LOC: M LAB REF 17:04 | PROVIDERS: ATTEND Internal Medicine Nephrology | DX: N18.31 Chronic kidney disease, stage 3a (principal) ==

== ENCOUNTER → 2021-06-17 | Outpatient (CLI) | payer MEDICARE ==
[2021-06-17 10:14] LABS: INR 1.61; PROTHROMBIN TIME 19.6 SECONDS (12.7-14.5)
[2021-06-17 11:01] LABS: ALBUMIN 3.2 GM/DL (3.2-5.2); BILIRUBIN,TOTAL 0.2 MG/DL (0.2-1.0); CALCIUM LEVEL 8.4 MG/DL (8.8-10.2); CREATININE FOR GFR 1.99 MG/DL (0.70-1.30); GLOMERULAR FILTRATION RATE 35.1 (>42); MAGNESIUM LEVEL 2.3 MG/DL (1.8-2.4); POTASSIUM SERUM 3.6 MEQ/L (3.5-5.1); TOTAL PROTEIN 7.5 GM/DL (6.4-8.2)
== END ==
LOC: M WUC 08:09
PROVIDERS: ATTEND Physician Assistant Medical
DX: E83.42 Hypomagnesemia (principal); N18.32 Chronic kidney disease, stage 3b; Z51.81 Encounter for therapeutic drug level monitoring; Z79.01 Long term (current) use of anticoagulants

== ENCOUNTER → 2021-07-01 | Outpatient (CLI) | payer MEDICARE ==
[2021-07-01 11:03] LABS: BASO # 0.1 10^3/uL (0.0-0.2); BASO % 0.8 % (0.0-1.0); EOS # 0.3 10^3/uL (0.0-0.5); EOS % 3.6 % (0.0-3.0); HEMATOCRIT 42.2 % (42.0-52.0); HEMOGLOBIN 12.8 g/dl (13.5-17.5); LYMPH # 2.6 10^3/uL (1.5-5.0); LYMPH % 31.7 % (24.0-44.0); MEAN CORPUSCULAR HEMOGLOBIN 28.6 pg (27.0-33.0); MEAN CORPUSCULAR HGB CONC 30.3 g/dl (32.0-36.5); MEAN CORPUSCULAR VOLUME 94.2 fl (80.0-96.0); MONO # 0.7 10^3/uL (0.0-0.8); MONO % 8.2 % (2.0-8.0); NEUTROPHILS # 4.6 10^3/uL (1.5-8.5); NEUTROPHILS % 55.2 % (36.0-66.0); PLATELET COUNT, AUTOMATED 267 10^3/uL (150-450); RED BLOOD COUNT 4.48 10^6/uL (4.30-6.10); WHITE BLOOD COUNT 8.3 10^3/uL (4.0-10.0)
[2021-07-01 11:13] LABS: INR 2.99; PROTHROMBIN TIME 31.4 SECONDS (12.7-14.5)
[2021-07-01 11:26] LABS: HEMOGLOBIN A1c 6.1 %
[2021-07-01 11:38] LABS: ALBUMIN 3.3 GM/DL (3.2-5.2); BILIRUBIN,TOTAL 0.2 MG/DL (0.2-1.0); CALCIUM LEVEL 8.9 MG/DL (8.8-10.2); CREATININE FOR GFR 2.26 MG/DL (0.70-1.30); GLOMERULAR FILTRATION RATE 30.3 (>42); MAGNESIUM LEVEL 2.9 MG/DL (1.8-2.4); POTASSIUM SERUM 3.6 MEQ/L (3.5-5.1); TOTAL PROTEIN 7.4 GM/DL (6.4-8.2)
== END ==
LOC: M WUC 08:24
PROVIDERS: ATTEND Physician Assistant Medical
DX: E11.9 Type 2 diabetes mellitus without complications (principal); Z51.81 Encounter for therapeutic drug level monitoring

== ENCOUNTER → 2021-08-06 | Outpatient (CLI) | payer MEDICARE ==
[2021-08-06 10:24] LABS: INR 2.8; PROTHROMBIN TIME 29.8 SECONDS (12.7-14.5)
== END ==
LOC: M WUC 08:10
PROVIDERS: ATTEND Physician Assistant Medical
DX: I63.9 Cerebral infarction, unspecified (principal); E83.42 Hypomagnesemia

== ENCOUNTER → 2021-09-11 | Outpatient (CLI) | payer MEDICARE ==
[2021-09-11 13:08] LABS: INR 3.58
[2021-09-11 13:20] LABS: ALBUMIN 3.5 GM/DL (3.2-5.2); ALT/SGPT 20 U/L (12-78); BILIRUBIN,TOTAL 0.1 MG/DL (0.2-1.0); BLOOD UREA NITROGEN 44 MG/DL (7-18); CALCIUM LEVEL 8.4 MG/DL (8.8-10.2); CARBON DIOXIDE LEVEL 21 MEQ/L (21-32); CHLORIDE LEVEL 113 MEQ/L (98-107); CHOLESTEROL LEVEL 211 MG/DL (<200); CHOLESTEROL RISK RATIO 6.806 (<5); CREATININE FOR GFR 2.42 MG/DL (0.70-1.30); GLUCOSE, FASTING 172 MG/DL (70-100); HDL CHOLESTEROL 31 MG/DL (>40); MAGNESIUM LEVEL 2.4 MG/DL (1.8-2.4); NON-HDL-C 180 MG/DL; POTASSIUM SERUM 3.6 MEQ/L (3.5-5.1); SODIUM LEVEL 141 MEQ/L (136-145); TOTAL PROTEIN 7.4 GM/DL (6.4-8.2); TRIGLYCERIDES LEVEL 407 MG/DL (<150)
[2021-09-11 13:27] LABS: PTH INTACT 21.9 PG/ML (18.5-88.0)
== END ==
LOC: M WUC 08:56
PROVIDERS: ATTEND Physician Assistant Medical
DX: Z12.5 Encounter for screening for malignant neoplasm of prostate (principal); E83.42 Hypomagnesemia; E78.5 Hyperlipidemia, unspecified; Z51.81 Encounter for therapeutic drug level monitoring; E55.9 Vitamin D deficiency, unspecified
CPT/HCPCS: 36415; 80053; 80061; 82306; 83735; 83970; 85610; G0103

== ENCOUNTER → 2021-10-06 | Outpatient (CLI) | payer MEDICARE ==
[2021-10-06 13:38] LABS: BASO # 0.1 10^3/uL (0.0-0.2); BASO % 0.8 % (0.0-1.0); EOS # 0.3 10^3/uL (0.0-0.5); EOS % 3.2 % (0.0-3.0); HEMATOCRIT 39.9 % (42.0-52.0); HEMOGLOBIN 12.3 g/dl (13.5-17.5); LYMPH # 2.7 10^3/uL (1.5-5.0); LYMPH % 26.7 % (24.0-44.0); MEAN CORPUSCULAR HEMOGLOBIN 29.6 pg (27.0-33.0); MEAN CORPUSCULAR HGB CONC 30.8 g/dl (32.0-36.5); MEAN CORPUSCULAR VOLUME 96.1 fl (80.0-96.0); MONO # 0.7 10^3/uL (0.0-0.8); MONO % 7.4 % (2.0-8.0); NEUTROPHILS # 6.2 10^3/uL (1.5-8.5); NEUTROPHILS % 61.5 % (36.0-66.0); PLATELET COUNT, AUTOMATED 260 10^3/uL (150-450); RED BLOOD COUNT 4.15 10^6/uL (4.30-6.10); WHITE BLOOD COUNT 10.1 10^3/uL (4.0-10.0)
[2021-10-06 13:54] LABS: INR 2.13; PROTHROMBIN TIME 24.2 SECONDS (12.7-14.5)
[2021-10-06 14:08] LABS: CALCIUM LEVEL 8.7 MG/DL (8.8-10.2); CREATININE FOR GFR 2.08 MG/DL (0.70-1.30); GLOMERULAR FILTRATION RATE 33.3 (>42); POTASSIUM SERUM 3.6 MEQ/L (3.5-5.1)
== END ==
LOC: M PLALAB 09:05
PROVIDERS: ATTEND Physician Assistant Medical
DX: Z51.81 Encounter for therapeutic drug level monitoring (principal)

== ENCOUNTER → 2021-11-04 | Outpatient (CLI) | payer MEDICARE ==
[2021-11-04 10:25] LABS: INR 2.05; PROTHROMBIN TIME 23.5 SECONDS (12.7-14.5)
[2021-11-04 10:47] LABS: ALBUMIN 3.5 GM/DL (3.2-5.2); BILIRUBIN,TOTAL 0.2 MG/DL (0.2-1.0); CALCIUM LEVEL 8.8 MG/DL (8.8-10.2); CREATININE FOR GFR 2.11 MG/DL (0.70-1.30); GLOMERULAR FILTRATION RATE 32.8 (>42); POTASSIUM SERUM 3.7 MEQ/L (3.5-5.1); TOTAL PROTEIN 7.2 GM/DL (6.4-8.2)
== END ==
LOC: M WUC 08:21
PROVIDERS: ATTEND Physician Assistant Medical
DX: Z51.81 Encounter for therapeutic drug level monitoring (principal); E87.6 Hypokalemia; N18.32 Chronic kidney disease, stage 3b

== ENCOUNTER → 2021-12-16 | Outpatient (CLI) | payer MEDICARE ==
[2021-12-16 10:05] LABS: INR 2.86; PROTHROMBIN TIME 30.3 SECONDS (12.7-14.5)
== END ==
LOC: M WUC 08:21
PROVIDERS: ATTEND Physician Assistant Medical
DX: Z51.81 Encounter for therapeutic drug level monitoring (principal)

== ENCOUNTER → 2022-01-13 | Outpatient (CLI) | payer MEDICARE ==
[2022-01-13 11:53] LABS: HEMOGLOBIN A1c 6.8 %
[2022-01-13 12:05] LABS: INR 3.01; PROTHROMBIN TIME 31.5 SECONDS (12.7-14.5)
== END ==
LOC: M WUC 08:26
PROVIDERS: ATTEND Physician Assistant Medical
DX: I63.9 Cerebral infarction, unspecified (principal); E11.9 Type 2 diabetes mellitus without complications

== ENCOUNTER → 2022-02-11 | Outpatient (CLI) | payer MEDICARE ==
[2022-02-11 10:52] LABS: INR 3.32
== END ==
LOC: M WUC 08:12
PROVIDERS: ATTEND Physician Assistant Medical
DX: I63.9 Cerebral infarction, unspecified (principal)

== ENCOUNTER → 2022-03-11 | Outpatient (CLI) | payer MEDICARE ==
[2022-03-11 12:32] LABS: INR 2.84; PROTHROMBIN TIME 30.2 SECONDS (12.7-14.5)
== END ==
LOC: M WUC 08:37
PROVIDERS: ATTEND Physician Assistant Medical
DX: Z51.81 Encounter for therapeutic drug level monitoring (principal)

== ENCOUNTER → 2022-04-09 | Outpatient (CLI) | payer MEDICARE ==
[~2022-04-09] MED LIST changes: +POTA-150 PO; -POTA10TA17 PO
[2022-04-09 12:29] LABS: INR 3.08; PROTHROMBIN TIME 32.1 SECONDS (12.7-14.5)
== END ==
LOC: M WUC 09:04
PROVIDERS: ATTEND Physician Assistant Medical
DX: I63.9 Cerebral infarction, unspecified (principal)

== ENCOUNTER → 2022-05-12 | Outpatient (REF) | payer MEDICARE ==
[2022-05-12 10:12] LABS: INR 3.87; PROTHROMBIN TIME 38.2 SECONDS (12.7-14.5)
== END ==
LOC: M WUC 09:32
PROVIDERS: ATTEND Physician Assistant Medical
DX: I63.9 Cerebral infarction, unspecified (principal)

== ENCOUNTER → 2022-05-26 | Outpatient (CLI) | payer MEDICARE ==
[2022-05-26 11:38] LABS: INR 3.64; PROTHROMBIN TIME 36.5 SECONDS (12.7-14.5)
== END ==
LOC: M WUC 08:49
PROVIDERS: ATTEND Physician Assistant Medical
DX: I63.9 Cerebral infarction, unspecified (principal)

== ENCOUNTER → 2022-06-10 | Outpatient (REF) | payer MEDICARE ==
[2022-06-10 16:56] LABS: APPEARANCE, URINE MANUAL CLOUDY (CLEAR); COLOR, URINE MANUAL YELLOW (YELLOW)
[2022-06-10 16:57] LABS: BILIRUBIN, URINE MANUAL NEGATIVE (NEGATIVE); BLOOD URINE MANUAL POSITIVE (NEGATIVE); GLUCOSE, URINE (UA) MANUAL NEGATIVE (NEGATIVE); KETONE, URINE MANUAL NEGATIVE (NEGATIVE); LEUKOCYTE ESTERASE, URINE MAN POSITIVE (NEGATIVE); NITRITE, URINE MANUAL NEGATIVE (NEGATIVE); PROTEIN, URINE MANUAL TRACE mg/dL (NEGATIVE); SPECIFIC GRAVITY,URINE MANUAL 1.015 (1.002-1.035); UROBILINOGEN, URINE MANUAL NORMAL (NORMAL)
[2022-06-10 17:22] LABS: BACTERIA, URINE LARGE AMOUNT; HYALINE CAST, URINE NONE SEEN /lpf (0-1); RBC, URINE TNTC /hpf (0-3); SQUAMOUS EPITHELIAL CELL URINE SMALL AMOUNT /hpf (SMALL AMT); WBC, URINE TNTC /hpf (0-3)
== END ==
LOC: M LAB REF 16:20
PROVIDERS: ATTEND Nurse Practitioner Family
DX: N18.31 Chronic kidney disease, stage 3a (principal); N39.0 Urinary tract infection, site not specified

== ENCOUNTER → 2022-07-15 | Outpatient (CLI) | payer MEDICARE ==
[2022-07-15 09:54] LABS: INR 2.06; PROTHROMBIN TIME 23.6 SECONDS (12.5-14.5)
== END ==
LOC: M WUC 08:28
PROVIDERS: ATTEND Nurse Practitioner Family
DX: Z51.81 Encounter for therapeutic drug level monitoring (principal)

== ENCOUNTER → 2022-08-07 | Outpatient (CLI) | payer MEDICARE ==
[2022-08-07 10:25] LABS: ALBUMIN 3.6 G/DL (3.2-5.2); BILIRUBIN,TOTAL 0.3 MG/DL (0.3-1.2); CALCIUM LEVEL 9.2 MG/DL (8.3-10.6); CREATININE FOR GFR 2.11 MG/DL (0.70-1.30); GLOMERULAR FILTRATION RATE 32.7 (>42); POTASSIUM SERUM 4.1 MMOL/L (3.5-5.1); TOTAL PROTEIN 7.1 G/DL (5.7-8.2)
== END ==
LOC: M WUC 08:36
PROVIDERS: ATTEND Physician Assistant Medical
DX: E87.6 Hypokalemia (principal)

== ENCOUNTER → 2022-09-17 | Outpatient (CLI) | payer MEDICARE ==
[2022-09-17 09:55] LABS: INR 2.96; PROTHROMBIN TIME 31.3 SECONDS (12.5-14.5)
[2022-09-17 10:07] LABS: CHOLESTEROL RISK RATIO 4.26 (<5); LDL CHOLESTEROL 25.2 MG/DL (<100)
== END ==
LOC: M WUC 08:40
PROVIDERS: ATTEND Physician Assistant Medical
DX: N40.1 Benign prostatic hyperplasia with lower urinary tract symptoms (principal); E78.5 Hyperlipidemia, unspecified; I63.9 Cerebral infarction, unspecified; Z12.5 Encounter for screening for malignant neoplasm of prostate
CPT/HCPCS: 36415; 80061; 82550; 85610; G0103

== ENCOUNTER → 2022-10-13 | Outpatient (REF) | payer MEDICARE ==
[2022-10-13 17:55] LABS: BACTERIA, URINE AUTO 2+ (NEGATIVE); RBC, URINE AUTO 121 /HPF (0-3); SQUAMOUS EPITHELIAL CELL UR AU 0 /HPF (0-6); WBC, URINE AUTO TNTC /HPF (0-3)
== END ==
LOC: M LAB REF 17:01
PROVIDERS: ATTEND Nurse Practitioner Family
DX: N39.0 Urinary tract infection, site not specified (principal); R31.9 Hematuria, unspecified

== ENCOUNTER → 2022-10-20 | Outpatient (CLI) | payer MEDICARE ==
[2022-10-20 10:22] LABS: INR 1.86; PROTHROMBIN TIME 21.8 SECONDS (12.5-14.5)
== END ==
LOC: M WUC 08:36
PROVIDERS: ATTEND Physician Assistant Medical
DX: Z51.81 Encounter for therapeutic drug level monitoring (principal)

== ENCOUNTER → 2022-11-05 | Outpatient (CLI) | payer MEDICARE ==
[~2022-11-05] MED LIST changes: +INSU100I6 SC; -LEVE1INJ5 SC
[2022-11-05 10:00] LABS: BASO # 0.1 10^3/uL (0.0-0.2); BASO % 0.7 % (0.0-1.0); EOS # 0.3 10^3/uL (0.0-0.5); EOS % 2.5 % (0.0-3.0); HEMATOCRIT 40.7 % (42.0-52.0); HEMOGLOBIN 12.3 g/dl (13.5-17.5); LYMPH # 2.3 10^3/uL (1.5-5.0); LYMPH % 22.1 % (24.0-44.0); MEAN CORPUSCULAR HGB CONC 30.2 g/dl (32.0-36.5); MEAN CORPUSCULAR VOLUME 99.3 fl (80.0-96.0); MONO # 0.9 10^3/uL (0.0-0.8); MONO % 8.2 % (2.0-8.0); NEUTROPHILS # 6.9 10^3/uL (1.5-8.5); NEUTROPHILS % 65.8 % (36.0-66.0); PLATELET COUNT, AUTOMATED 256 10^3/uL (150-450); WHITE BLOOD COUNT 10.5 10^3/uL (4.0-10.0)
[2022-11-05 10:14] LABS: INR 3.41; PROTHROMBIN TIME 34.9 SECONDS (12.5-14.5)
[2022-11-05 10:38] LABS: THYROID STIMULATING HORMONE 2.383 uIU/ML (0.55-4.78)
[2022-11-05 10:40] LABS: FREE T4 0.9 NG/DL (0.89-1.76)
[2022-11-05 10:41] LABS: HEMOGLOBIN A1c 6.5 % (4.0-6.0)
== END ==
LOC: M WUC 08:18
PROVIDERS: ATTEND Physician Assistant Medical
DX: I63.9 Cerebral infarction, unspecified (principal); E11.9 Type 2 diabetes mellitus without complications; K21.9 Gastro-esophageal reflux disease without esophagitis; F32.9 Major depressive disorder, single episode, unspecified; Z51.81 Encounter for therapeutic drug level monitoring

== ENCOUNTER → 2022-11-30 | Outpatient (CLI) | payer MEDICARE ==
[2022-11-30 10:55] LABS: HEMATOCRIT 40.1 % (42.0-52.0)
[2022-11-30 11:01] LABS: INR 2.64; PROTHROMBIN TIME 28.6 SECONDS (12.5-14.5)
== END ==
LOC: M WUC 08:39
PROVIDERS: ATTEND Physician Assistant Medical
DX: I63.9 Cerebral infarction, unspecified (principal)

== ENCOUNTER → 2023-01-06 | Outpatient (CLI) | payer MEDICARE ==
[2023-01-06 13:12] LABS: INR 2.82; PROTHROMBIN TIME 30.1 SECONDS (12.5-14.5)
== END ==
LOC: M WUC 08:58
PROVIDERS: ATTEND Physician Assistant Medical
DX: I63.9 Cerebral infarction, unspecified (principal)

== ENCOUNTER → 2023-01-07 | Outpatient (REF) | payer MEDICARE | LOC: M SFHCPLAZ 16:02 | PROVIDERS: ATTEND Physician Assistant Medical | DX: I63.9 Cerebral infarction, unspecified (principal) ==

== ENCOUNTER → 2023-02-16 | Outpatient (CLI) | payer MEDICARE ==
[2023-02-16 10:14] LABS: INR 2.65; PROTHROMBIN TIME 28.7 SECONDS (12.5-14.5)
== END ==
LOC: M WUC 08:19
PROVIDERS: ATTEND Physician Assistant Medical
DX: I63.9 Cerebral infarction, unspecified (principal)

== ENCOUNTER → 2023-02-18 | Outpatient (REF) | payer MEDICARE | LOC: M LAB REF 16:40 | PROVIDERS: ATTEND Nurse Practitioner Family | DX: N39.0 Urinary tract infection, site not specified (principal) ==

== ENCOUNTER → 2023-04-16 | Outpatient (REF) | payer MEDICARE ==
[2023-04-16 10:22] LABS: INR 3.91; PROTHROMBIN TIME 37.4 SECONDS (12.5-14.5)
== END ==
LOC: M LABWUC 09:17
PROVIDERS: ATTEND Physician Assistant Medical
DX: Z51.81 Encounter for therapeutic drug level monitoring (principal)

== ENCOUNTER → 2023-05-05 | Outpatient (CLI) | payer MEDICARE ==
[2023-05-05 10:48] LABS: INR 3.38; PROTHROMBIN TIME 33.4 SECONDS (12.5-14.5)
== END ==
LOC: M WUC 08:26
PROVIDERS: ATTEND Physician Assistant Medical
DX: I63.9 Cerebral infarction, unspecified (principal)

== ENCOUNTER → 2023-05-20 | Outpatient (REF) | payer MEDICARE ==
[2023-05-20 11:10] LABS: INR 3.15; PROTHROMBIN TIME 31.6 SECONDS (12.5-14.5)
== END ==
LOC: M LABWUC 10:18
PROVIDERS: ATTEND Physician Assistant Medical
DX: I63.9 Cerebral infarction, unspecified (principal)

== ENCOUNTER → 2023-06-17 | Outpatient (CLI) | payer MEDICARE ==
[2023-06-17 13:05] LABS: BASO # 0.1 10^3/uL (0.0-0.2); BASO % 0.5 % (0.0-1.0); EOS # 0.3 10^3/uL (0.0-0.5); EOS % 2.2 % (0.0-3.0); HEMATOCRIT 35.9 % (42.0-52.0); HEMOGLOBIN 10.6 g/dl (13.5-17.5); LYMPH # 1.9 10^3/uL (1.5-5.0); LYMPH % 14.9 % (24.0-44.0); MEAN CORPUSCULAR HEMOGLOBIN 29.5 pg (27.0-33.0); MEAN CORPUSCULAR HGB CONC 29.5 g/dl (32.0-36.5); MONO # 0.7 10^3/uL (0.0-0.8); MONO % 5.7 % (2.0-8.0); NEUTROPHILS # 9.7 10^3/uL (1.5-8.5); NEUTROPHILS % 75.7 % (36.0-66.0); PLATELET COUNT, AUTOMATED 410 10^3/uL (150-450); RED BLOOD COUNT 3.59 10^6/uL (4.30-6.10); WHITE BLOOD COUNT 12.8 10^3/uL (4.0-10.0)
[2023-06-17 13:06] LABS: PROTHROMBIN TIME 73.2 SECONDS (12.5-14.5)
[2023-06-18 06:56] LABS: INR 9.23
== END ==
LOC: M WUC 09:13
PROVIDERS: ATTEND Physician Assistant Medical
DX: I63.9 Cerebral infarction, unspecified (principal); Z51.81 Encounter for therapeutic drug level monitoring

== ENCOUNTER → 2023-06-21 | Outpatient (CLI) | payer MEDICARE ==
[2023-06-21 13:17] LABS: BASO # 0.1 10^3/uL (0.0-0.2); BASO % 0.6 % (0.0-1.0); EOS # 0.2 10^3/uL (0.0-0.5); EOS % 2.2 % (0.0-3.0); HEMATOCRIT 37.9 % (42.0-52.0); HEMOGLOBIN 11.1 g/dl (13.5-17.5); LYMPH # 1.9 10^3/uL (1.5-5.0); LYMPH % 19.3 % (24.0-44.0); MEAN CORPUSCULAR HEMOGLOBIN 29.2 pg (27.0-33.0); MEAN CORPUSCULAR HGB CONC 29.3 g/dl (32.0-36.5); MEAN CORPUSCULAR VOLUME 99.7 fl (80.0-96.0); MONO # 0.7 10^3/uL (0.0-0.8); MONO % 6.7 % (2.0-8.0); NEUTROPHILS % 70.2 % (36.0-66.0); PLATELET COUNT, AUTOMATED 438 10^3/uL (150-450)
[2023-06-21 13:24] LABS: INR 4.87; PROTHROMBIN TIME 44.5 SECONDS (12.5-14.5)
[2023-06-22 01:30] LABS: FERRITIN 329.1 NG/ML (10.5-307.3)
[2023-06-22 15:40] LABS: PERCENT SATURATION 15.7 % (19.7-50.0)
== END ==
LOC: M WUC 08:53
PROVIDERS: ATTEND Physician Assistant Medical
DX: D64.9 Anemia, unspecified (principal); I63.9 Cerebral infarction, unspecified; Z51.81 Encounter for therapeutic drug level monitoring

== ENCOUNTER → 2023-06-30 | Outpatient (CLI) | payer MEDICARE ==
[2023-06-30 13:59] LABS: INR 4.73; PROTHROMBIN TIME 42.6 SECONDS (12.5-14.5)
== END ==
LOC: M WUC 09:07
PROVIDERS: ATTEND Physician Assistant Medical
DX: I63.9 Cerebral infarction, unspecified (principal)

== ENCOUNTER → 2023-06-30 | Outpatient (CLI) | payer MEDICARE ==
[2023-06-30 13:58] LABS: ALBUMIN 2.6 G/DL (3.2-5.2); CALCIUM LEVEL 8.7 MG/DL (8.3-10.6); CREATININE FOR GFR 2.8 MG/DL (0.70-1.30); GLOMERULAR FILTRATION RATE 23.5 (>42); POTASSIUM SERUM 3.3 MMOL/L (3.5-5.1)
== END ==
LOC: M WUC 09:05
PROVIDERS: ATTEND Internal Medicine Nephrology
DX: N18.31 Chronic kidney disease, stage 3a (principal); I63.9 Cerebral infarction, unspecified

== ENCOUNTER → 2023-07-08 | Outpatient (CLI) | payer MEDICARE ==
[2023-07-08 12:37] LABS: INR 4.3; PROTHROMBIN TIME 39.7 SECONDS (12.5-14.5)
[2023-07-08 12:50] LABS: ALBUMIN 2.7 G/DL (3.2-5.2); CALCIUM LEVEL 8.8 MG/DL (8.3-10.6); CREATININE FOR GFR 2.83 MG/DL (0.70-1.30); GLOMERULAR FILTRATION RATE 23.2 (>42); MAGNESIUM LEVEL 1.8 MG/DL (1.8-2.4); PHOSPHORUS LEVEL 2.7 MG/DL (2.4-5.1)
== END ==
LOC: M WUC 08:53
PROVIDERS: ATTEND Physician Assistant Medical
DX: I63.9 Cerebral infarction, unspecified (principal); N18.4 Chronic kidney disease, stage 4 (severe); Z79.01 Long term (current) use of anticoagulants

== ENCOUNTER → 2023-07-19 | Outpatient (CLI) | payer MEDICARE ==
[2023-07-19 13:10] LABS: INR 2.98; PROTHROMBIN TIME 29.9 SECONDS (12.5-14.5)
[2023-07-19 13:22] LABS: CALCIUM LEVEL 8.3 MG/DL (8.3-10.6); CREATININE FOR GFR 2.85 MG/DL (0.70-1.30); POTASSIUM SERUM 3.1 MMOL/L (3.5-5.1)
== END ==
LOC: M WUC 09:04
PROVIDERS: ATTEND Physician Assistant Medical
DX: I63.9 Cerebral infarction, unspecified (principal); Z51.81 Encounter for therapeutic drug level monitoring; N18.4 Chronic kidney disease, stage 4 (severe)

== ENCOUNTER → 2023-08-24 | Outpatient (CLI) | payer MEDICARE ==
[2023-08-24 10:14] LABS: INR 3.04; PROTHROMBIN TIME 30.3 SECONDS (12.5-14.5)
[2023-08-24 10:35] LABS: ALBUMIN 2.8 G/DL (3.2-5.2); CALCIUM LEVEL 9.3 MG/DL (8.3-10.6); CREATININE FOR GFR 2.51 MG/DL (0.70-1.30); GLOMERULAR FILTRATION RATE 26.7 (>42); MAGNESIUM LEVEL 1.6 MG/DL (1.8-2.4); PHOSPHORUS LEVEL 2.7 MG/DL (2.4-5.1); POTASSIUM SERUM 3.8 MMOL/L (3.5-5.1)
== END ==
LOC: M LAB 09:20
PROVIDERS: ATTEND Physician Assistant Medical
DX: N18.4 Chronic kidney disease, stage 4 (severe) (principal); I69.354 Hemiplegia and hemiparesis following cerebral infarction affecting left non-dominant side

== ENCOUNTER → 2023-08-25 | Outpatient (CLI) | payer MEDICARE ==
[2023-08-25 12:38] LABS: BASO # 0.1 10^3/uL (0.0-0.2); BASO % 0.8 % (0.0-1.0); EOS # 0.3 10^3/uL (0.0-0.5); EOS % 3.2 % (0.0-3.0); HEMATOCRIT 34.3 % (42.0-52.0); HEMOGLOBIN 9.8 g/dl (13.5-17.5); LYMPH # 2.2 10^3/uL (1.5-5.0); LYMPH % 22.1 % (24.0-44.0); MEAN CORPUSCULAR HEMOGLOBIN 28.4 pg (27.0-33.0); MEAN CORPUSCULAR HGB CONC 28.6 g/dl (32.0-36.5); MEAN CORPUSCULAR VOLUME 99.4 fl (80.0-96.0); MONO # 0.6 10^3/uL (0.0-0.8); NEUTROPHILS # 6.8 10^3/uL (1.5-8.5); PLATELET COUNT, AUTOMATED 384 10^3/uL (150-450); RED BLOOD COUNT 3.45 10^6/uL (4.30-6.10); WHITE BLOOD COUNT 10.1 10^3/uL (4.0-10.0)
[2023-08-25 12:59] LABS: FERRITIN 274.6 NG/ML (10.5-307.3)
== END ==
LOC: M PLALAB 10:38
PROVIDERS: ATTEND Physician Assistant Medical
DX: I95.89 Other hypotension (principal); D50.8 Other iron deficiency anemias

== ENCOUNTER → 2023-08-31 | Outpatient (CLI) | payer MEDICARE ==
[2023-08-31 10:39] LABS: BASO # 0.1 10^3/uL (0.0-0.2); BASO % 0.6 % (0.0-1.0); EOS # 0.4 10^3/uL (0.0-0.5); EOS % 3.8 % (0.0-3.0); HEMATOCRIT 34.1 % (42.0-52.0); HEMOGLOBIN 9.9 g/dl (13.5-17.5); LYMPH # 2.3 10^3/uL (1.5-5.0); LYMPH % 22.9 % (24.0-44.0); MEAN CORPUSCULAR HEMOGLOBIN 28.3 pg (27.0-33.0); MEAN CORPUSCULAR VOLUME 97.4 fl (80.0-96.0); MONO # 0.6 10^3/uL (0.0-0.8); MONO % 5.7 % (2.0-8.0); NEUTROPHILS # 6.7 10^3/uL (1.5-8.5); PLATELET COUNT, AUTOMATED 395 10^3/uL (150-450); WHITE BLOOD COUNT 10.1 10^3/uL (4.0-10.0)
[2023-08-31 11:05] LABS: FERRITIN 321.9 NG/ML (10.5-307.3)
[2023-08-31 13:40] LABS: INR 2.02; PROTHROMBIN TIME 22.2 SECONDS (12.5-14.5)
== END ==
LOC: M WUC 09:04
PROVIDERS: ATTEND Physician Assistant Medical
DX: R71.0 Precipitous drop in hematocrit (principal); Z79.01 Long term (current) use of anticoagulants

== ENCOUNTER → 2023-09-03 | Outpatient (CLI) | payer MEDICARE ==
[2023-09-03 12:34] LABS: BASO # 0.1 10^3/uL (0.0-0.2); BASO % 0.6 % (0.0-1.0); EOS # 0.3 10^3/uL (0.0-0.5); EOS % 2.5 % (0.0-3.0); HEMATOCRIT 35.4 % (42.0-52.0); HEMOGLOBIN 10.2 g/dl (13.5-17.5); LYMPH # 2.6 10^3/uL (1.5-5.0); LYMPH % 23.7 % (24.0-44.0); MEAN CORPUSCULAR HEMOGLOBIN 28.7 pg (27.0-33.0); MEAN CORPUSCULAR HGB CONC 28.8 g/dl (32.0-36.5); MEAN CORPUSCULAR VOLUME 99.4 fl (80.0-96.0); MONO # 0.6 10^3/uL (0.0-0.8); MONO % 5.8 % (2.0-8.0); NEUTROPHILS # 7.3 10^3/uL (1.5-8.5); NEUTROPHILS % 66.6 % (36.0-66.0); PLATELET COUNT, AUTOMATED 410 10^3/uL (150-450); RED BLOOD COUNT 3.56 10^6/uL (4.30-6.10)
[2023-09-03 12:58] LABS: INR 1.51; PROTHROMBIN TIME 17.7 SECONDS (12.5-14.5)
== END ==
LOC: M WUC 09:03
PROVIDERS: ATTEND Physician Assistant Medical
DX: D50.8 Other iron deficiency anemias (principal); Z79.01 Long term (current) use of anticoagulants

== ENCOUNTER → 2023-09-17 | Outpatient (REF) | payer MEDICARE ==
[2023-09-17 18:56] LABS: FERRITIN 204.3 NG/ML (10.5-307.3); PERCENT SATURATION 25.4 % (19.7-50.0)
== END ==
LOC: M LAB REF 17:47
PROVIDERS: ATTEND Nurse Practitioner Family
DX: D50.9 Iron deficiency anemia, unspecified (principal)

== ENCOUNTER → 2023-10-19 | Outpatient (CLI) | payer MEDICARE ==
[~2023-10-19] MED LIST changes: -ASPI-161 PO; +ASPI-615 PO
[2023-10-19 10:36] LABS: BASO # 0.1 10^3/uL (0.0-0.2); BASO % 0.8 % (0.0-1.0); EOS # 0.2 10^3/uL (0.0-0.5); EOS % 2.8 % (0.0-3.0); HEMATOCRIT 39.4 % (42.0-52.0); HEMOGLOBIN 11.8 g/dl (13.5-17.5); LYMPH # 2.3 10^3/uL (1.5-5.0); LYMPH % 26.5 % (24.0-44.0); MEAN CORPUSCULAR HEMOGLOBIN 29.2 pg (27.0-33.0); MEAN CORPUSCULAR HGB CONC 29.9 g/dl (32.0-36.5); MEAN CORPUSCULAR VOLUME 97.5 fl (80.0-96.0); MONO # 0.6 10^3/uL (0.0-0.8); MONO % 6.6 % (2.0-8.0); NEUTROPHILS # 5.3 10^3/uL (1.5-8.5); NEUTROPHILS % 62.7 % (36.0-66.0); PLATELET COUNT, AUTOMATED 226 10^3/uL (150-450); RED BLOOD COUNT 4.04 10^6/uL (4.30-6.10); WHITE BLOOD COUNT 8.5 10^3/uL (4.0-10.0)
[2023-10-19 11:07] LABS: ALBUMIN 3.2 G/DL (3.2-5.2); BILIRUBIN,TOTAL 0.3 MG/DL (0.3-1.2); CALCIUM LEVEL 8.8 MG/DL (8.3-10.6); CREATININE FOR GFR 2.14 MG/DL (0.70-1.30); FERRITIN 163.9 NG/ML (10.5-307.3); GLOMERULAR FILTRATION RATE 32.1 (>42); POTASSIUM SERUM 3.7 MMOL/L (3.5-5.1); TOTAL PROTEIN 6.7 G/DL (5.7-8.2)
== END ==
LOC: M WUC 08:21
PROVIDERS: ATTEND Physician Assistant Medical
DX: D50.8 Other iron deficiency anemias (principal); K21.9 Gastro-esophageal reflux disease without esophagitis

== ENCOUNTER → 2023-11-16 | Outpatient (CLI) | payer MEDICARE ==
[2023-11-16 10:57] LABS: BASO # 0.1 10^3/uL (0.0-0.2); BASO % 0.7 % (0.0-1.0); EOS # 0.3 10^3/uL (0.0-0.5); EOS % 3.1 % (0.0-3.0); HEMATOCRIT 39.8 % (42.0-52.0); HEMOGLOBIN 11.7 g/dl (13.5-17.5); LYMPH % 30.4 % (24.0-44.0); MEAN CORPUSCULAR HEMOGLOBIN 29.5 pg (27.0-33.0); MEAN CORPUSCULAR HGB CONC 29.4 g/dl (32.0-36.5); MEAN CORPUSCULAR VOLUME 100.3 fl (80.0-96.0); MONO # 0.7 10^3/uL (0.0-0.8); MONO % 7.1 % (2.0-8.0); NEUTROPHILS # 5.7 10^3/uL (1.5-8.5); NEUTROPHILS % 58.2 % (36.0-66.0); PLATELET COUNT, AUTOMATED 213 10^3/uL (150-450); RED BLOOD COUNT 3.97 10^6/uL (4.30-6.10); WHITE BLOOD COUNT 9.8 10^3/uL (4.0-10.0)
[2023-11-16 11:19] LABS: ALBUMIN 3.3 G/DL (3.2-5.2); BILIRUBIN,TOTAL 0.2 MG/DL (0.3-1.2); CALCIUM LEVEL 8.5 MG/DL (8.3-10.6); CREATININE FOR GFR 2.56 MG/DL (0.70-1.30); GLOMERULAR FILTRATION RATE 26.1 (>42); POTASSIUM SERUM 3.8 MMOL/L (3.5-5.1); TOTAL PROTEIN 6.8 G/DL (5.7-8.2)
[2023-11-16 11:20] LABS: FERRITIN 144.7 NG/ML (10.5-307.3)
== END ==
LOC: M WUC 08:23
PROVIDERS: ATTEND Physician Assistant Medical
DX: D50.8 Other iron deficiency anemias (principal); I63.9 Cerebral infarction, unspecified; E11.9 Type 2 diabetes mellitus without complications; I10 Essential (primary) hypertension

== ENCOUNTER → 2023-12-15 | Outpatient (CLI) | payer MEDICARE ==
[2023-12-15 11:12] LABS: BASO # 0.1 10^3/uL (0.0-0.2); BASO % 0.6 % (0.0-1.0); EOS # 0.3 10^3/uL (0.0-0.5); EOS % 2.6 % (0.0-3.0); HEMATOCRIT 39.6 % (42.0-52.0); HEMOGLOBIN 11.9 g/dl (13.5-17.5); LYMPH # 2.7 10^3/uL (1.5-5.0); LYMPH % 27.1 % (24.0-44.0); MEAN CORPUSCULAR HEMOGLOBIN 29.4 pg (27.0-33.0); MEAN CORPUSCULAR HGB CONC 30.1 g/dl (32.0-36.5); MEAN CORPUSCULAR VOLUME 97.8 fl (80.0-96.0); MONO # 0.8 10^3/uL (0.0-0.8); MONO % 7.9 % (2.0-8.0); NEUTROPHILS % 61.2 % (36.0-66.0); PLATELET COUNT, AUTOMATED 201 10^3/uL (150-450); RED BLOOD COUNT 4.05 10^6/uL (4.30-6.10); WHITE BLOOD COUNT 9.8 10^3/uL (4.0-10.0)
[2023-12-15 11:37] LABS: CALCIUM LEVEL 8.8 MG/DL (8.3-10.6); CREATININE FOR GFR 2.36 MG/DL (0.70-1.30); GLOMERULAR FILTRATION RATE 28.6 (>42); POTASSIUM SERUM 3.4 MMOL/L (3.5-5.1)
[2023-12-15 11:39] LABS: FERRITIN 124.2 NG/ML (10.5-307.3)
== END ==
LOC: M WUC 08:03
PROVIDERS: ATTEND Physician Assistant Medical
DX: D50.8 Other iron deficiency anemias (principal); N18.4 Chronic kidney disease, stage 4 (severe)

== ENCOUNTER → 2024-03-14 | Outpatient (CLI) | payer MEDICARE ==
[~2024-03-14] MED LIST changes: +FLUO-365 PO; -FLUO20CA22 PO
[2024-03-14 11:37] LABS: BASO # 0.1 10^3/uL (0.0-0.2); BASO % 0.7 % (0.0-1.0); EOS # 0.3 10^3/uL (0.0-0.5); EOS % 2.9 % (0.0-3.0); HEMATOCRIT 37.8 % (42.0-52.0); HEMOGLOBIN 11.3 g/dl (13.5-17.5); LYMPH # 2.6 10^3/uL (1.5-5.0); LYMPH % 26.2 % (24.0-44.0); MEAN CORPUSCULAR HEMOGLOBIN 30.2 pg (27.0-33.0); MEAN CORPUSCULAR HGB CONC 29.9 g/dl (32.0-36.5); MEAN CORPUSCULAR VOLUME 101.1 fl (80.0-96.0); MONO # 0.7 10^3/uL (0.0-0.8); MONO % 6.9 % (2.0-8.0); NEUTROPHILS # 6.1 10^3/uL (1.5-8.5); NEUTROPHILS % 62.5 % (36.0-66.0); PLATELET COUNT, AUTOMATED 242 10^3/uL (150-450); RED BLOOD COUNT 3.74 10^6/uL (4.30-6.10); WHITE BLOOD COUNT 9.7 10^3/uL (4.0-10.0)
[2024-03-14 12:07] LABS: ALBUMIN 3.4 G/DL (3.2-5.2); BILIRUBIN,TOTAL 0.3 MG/DL (0.3-1.2); CREATININE FOR GFR 2.54 MG/DL (0.70-1.30); GLOMERULAR FILTRATION RATE 26.2 (>42); POTASSIUM SERUM 3.8 MMOL/L (3.5-5.1); TOTAL PROTEIN 6.7 G/DL (5.7-8.2)
[2024-03-14 12:08] LABS: FERRITIN 155.1 NG/ML (10.5-307.3)
== END ==
LOC: M WUC 08:17
PROVIDERS: ATTEND Physician Assistant Medical
DX: N18.4 Chronic kidney disease, stage 4 (severe) (principal); D50.8 Other iron deficiency anemias

== ENCOUNTER → 2024-06-15 | Outpatient (CLI) | payer MEDICARE ==
[2024-06-15 10:48] LABS: BASO # 0.1 10^3/uL (0.0-0.2); BASO % 0.6 % (0.0-1.0); EOS # 0.3 10^3/uL (0.0-0.5); EOS % 2.8 % (0.0-3.0); HEMATOCRIT 39.5 % (42.0-52.0); HEMOGLOBIN 12.2 g/dl (13.5-17.5); LYMPH # 2.5 10^3/uL (1.5-5.0); LYMPH % 26.7 % (24.0-44.0); MEAN CORPUSCULAR HEMOGLOBIN 30.4 pg (27.0-33.0); MEAN CORPUSCULAR HGB CONC 30.9 g/dl (32.0-36.5); MEAN CORPUSCULAR VOLUME 98.5 fl (80.0-96.0); MONO # 0.7 10^3/uL (0.0-0.8); MONO % 7.8 % (2.0-8.0); NEUTROPHILS # 5.7 10^3/uL (1.5-8.5); NEUTROPHILS % 60.8 % (36.0-66.0); PLATELET COUNT, AUTOMATED 245 10^3/uL (150-450); RED BLOOD COUNT 4.01 10^6/uL (4.30-6.10); WHITE BLOOD COUNT 9.4 10^3/uL (4.0-10.0)
[2024-06-15 11:06] LABS: HEMOGLOBIN A1c 6.9 % (4.0-6.0)
[2024-06-15 11:14] LABS: CALCIUM LEVEL 8.6 MG/DL (8.3-10.6); CREATININE FOR GFR 2.37 MG/DL (0.70-1.30); GLOMERULAR FILTRATION RATE 28.4 (>42); POTASSIUM SERUM 3.6 MMOL/L (3.5-5.1)
[2024-06-15 11:16] LABS: FERRITIN 152.3 NG/ML (10.5-307.3)
== END ==
LOC: M WUC 08:17
PROVIDERS: ATTEND Physician Assistant Medical
DX: I63.9 Cerebral infarction, unspecified (principal); D50.8 Other iron deficiency anemias; E11.9 Type 2 diabetes mellitus without complications; N18.4 Chronic kidney disease, stage 4 (severe)

== ENCOUNTER → 2024-08-01 | Outpatient (CLI) | payer MEDICARE ==
[2024-08-01 12:17] LABS: BASO # 0.1 10^3/uL (0.0-0.2); BASO % 0.7 % (0.0-1.0); EOS # 0.3 10^3/uL (0.0-0.5); EOS % 3.4 % (0.0-3.0); HEMATOCRIT 38.9 % (42.0-52.0); HEMOGLOBIN 12.1 g/dl (13.5-17.5); LYMPH # 2.7 10^3/uL (1.5-5.0); LYMPH % 27.1 % (24.0-44.0); MEAN CORPUSCULAR HEMOGLOBIN 30.8 pg (27.0-33.0); MEAN CORPUSCULAR HGB CONC 31.1 g/dl (32.0-36.5); MONO # 0.7 10^3/uL (0.0-0.8); MONO % 6.7 % (2.0-8.0); NEUTROPHILS % 60.7 % (36.0-66.0); PLATELET COUNT, AUTOMATED 231 10^3/uL (150-450); RED BLOOD COUNT 3.93 10^6/uL (4.30-6.10); WHITE BLOOD COUNT 9.8 10^3/uL (4.0-10.0)
[2024-08-01 12:34] LABS: HEMOGLOBIN A1c 6.8 % (4.0-6.0)
[2024-08-01 12:44] LABS: ALBUMIN 3.3 G/DL (3.2-5.2); BILIRUBIN,TOTAL 0.3 MG/DL (0.3-1.2); CALCIUM LEVEL 9.1 MG/DL (8.3-10.6); CHOLESTEROL RISK RATIO 5.17 (<5); CREATININE FOR GFR 2.54 MG/DL (0.70-1.30); GLOMERULAR FILTRATION RATE 26.2 (>42); HDL CHOLESTEROL 25.7 MG/DL (>40); LDL CHOLESTEROL 48.3 MG/DL (<100); NON-HDL-C 107.3 MG/DL; POTASSIUM SERUM 3.5 MMOL/L (3.5-5.1); PSA SCREENING 0.42 NG/ML (< 4.00); TOTAL PROTEIN 7.1 G/DL (5.7-8.2)
[2024-08-04 13:37] LABS: FERRITIN 160.1 NG/ML (10.5-307.3)
== END ==
LOC: M WUC 09:32
PROVIDERS: ATTEND Physician Assistant Medical
DX: Z12.5 Encounter for screening for malignant neoplasm of prostate (principal); I69.354 Hemiplegia and hemiparesis following cerebral infarction affecting left non-dominant side; I10 Essential (primary) hypertension; D50.9 Iron deficiency anemia, unspecified
CPT/HCPCS: 36415; 80053; 80061; 82607; 82728; 83036; 83540; 85025; G0103

== ENCOUNTER → 2025-08-06 | Outpatient (REF) | payer MEDICARE ==
[~2025-08-06] MED LIST changes: -FLOM0.4C39 PO; +TAMS-18 PO
[2025-08-06 13:53] LABS: ALT/SGPT 13.0 U/L (7.0-40); AST/SGOT 15.0 U/L (<34); BASO # 0.1 10^3/uL (0.0-0.2); BASO % 0.7 % (0.0-1.0); CALCIUM LEVEL 8.7 MG/DL (8.3-10.6); CARBON DIOXIDE LEVEL 20.0 MMOL/L (20-31); CHLORIDE LEVEL 113.0 MMOL/L (98-107); CREATININE FOR GFR 2.83 MG/DL (0.70-1.30); EOS # 0.2 10^3/uL (0.0-0.5); EOS % 2.3 % (0.0-3.0); GLOMERULAR FILTRATION RATE 22.0 (>42); IRON (FE) 37.0 UG/DL (65-175); LYMPH # 2.5 10^3/uL (1.5-5.0); LYMPH % 27.4 % (24.0-44.0); MONO # 0.6 10^3/uL (0.0-0.8); MONO % 6.6 % (2.0-8.0); NEUTROPHILS # 5.7 10^3/uL (1.5-8.5); NEUTROPHILS % 62.4 % (36.0-66.0); PLATELET COUNT, AUTOMATED 239 10^3/uL (150-450); POTASSIUM SERUM 3.3 MMOL/L (3.5-5.1); SODIUM LEVEL 144.0 MMOL/L (136-145)
[2025-08-06 15:08] LABS: ESTIMATED AVERAGE GLUCOSE 126.0 MG/DL (60-110)
== END ==
LOC: M LABDRAWP 13:08
PROVIDERS: ATTEND Physician Assistant Medical
DX: E11.9 Type 2 diabetes mellitus without complications (principal); K21.9 Gastro-esophageal reflux disease without esophagitis; D75.89 Other specified diseases of blood and blood-forming organs; I10 Essential (primary) hypertension